=== PATIENT | male | born 1940 | race Caucasian/White ===

== ENCOUNTER → 2016-10-21 | Outpatient (CLI) | payer MEDICARE, OTHER | LOC: RAD 08:48 | PROVIDERS: ATTEND Otolaryngology | DX: R13.10 Dysphagia, unspecified (principal); K21.9 Gastro-esophageal reflux disease without esophagitis; K44.9 Diaphragmatic hernia without obstruction or gangrene | CPT/HCPCS: 74220 ==

== ENCOUNTER 2018-03-02 10:18 | Day surgery (SDC) | payer MEDICARE, OTHER ==
[~2018-03-02 10:18] MED LIST: PROPOFOL INJ 200 MG/20 ML VIAL IV ONE
[2018-03-02 12:45] VITALS: BP 156/75
--- NOTE | 2018-03-02 13:14 | Operative Report ---
Operative Report DATE OF SURGERY: 03/02/18 Operative Report: The risks, benefits and alternatives of the procedure including risks of bleeding, perforation requiring surgery are explained to the patient in detail and informed consent was obtained. Patient is taken back to the endoscopy suite and placed in the left, lateral decubital position. Timeout was called. Propofol medication is administered. A rectal examination is done which did not reveal any masses, tears or fissures. An Olympus videoscope was inserted into the patient's rectum. The scope was then carefully advanced all the way to the cecum. The cecum was identified by the usual anatomical landmarks including the ileocecal valve as well as the appendiceal office. Photodocumentation is obtained. The scope was then sequentially pulled back via the various segments of the colon including the ascending colon, hepatic flexure, transverse colon, splenic flexure, descending colon and finally into the rectosigmoid portions of the colon. Retroflexion maneuvers performed. PREOPERATIVE DIAGNOSIS: Personal history of polyp. POSTOPERATIVE DIAGNOSIS: Diverticulosis. Internal hemorrhoids. Mild right- sided colon inflammation status post biopsy OPERATION: Colonoscopy with biopsy SURGEON: MILTON RICHMOND ANESTHESIA: LMAC TISSUE REMOVED OR ALTERED: As noted above. COMPLICATIONS: None. ESTIMATED BLOOD LOSS: None. INTRAOPERATIVE FINDINGS: As noted above. PROCEDURE: Patient tolerated procedure well. No immediate postprocedure complications are noted. Patient discharged in good condition. Discharge date 03/02/2018. Discharge diet: Regular. Discharge activity: Regular. 2-3 week follow-up to discuss findings. Patient is instructed to call the office or proceed to the emergency room should there be any further problems or questions. We will wait on pathology. Surveillance colonoscopy in 5 years.
== END 2018-03-02 12:40 | disposition home or self-care (01) ==
LOC: END 10:18
PROVIDERS: ATTEND Internal Medicine Gastroenterology
DX: Z12.11 Encounter for screening for malignant neoplasm of colon (principal); K57.30 Diverticulosis of large intestine without perforation or abscess without bleeding; K64.8 Other hemorrhoids; K52.9 Noninfective gastroenteritis and colitis, unspecified; Z86.010 Personal history of colon polyps; M19.90 Unspecified osteoarthritis, unspecified site; E11.9 Type 2 diabetes mellitus without complications; K21.9 Gastro-esophageal reflux disease without esophagitis; K44.9 Diaphragmatic hernia without obstruction or gangrene; I11.0 Hypertensive heart disease with heart failure; I50.9 Heart failure, unspecified; J44.9 Chronic obstructive pulmonary disease, unspecified; E78.2 Mixed hyperlipidemia; I25.10 Atherosclerotic heart disease of native coronary artery without angina pectoris; Z87.891 Personal history of nicotine dependence; Z79.51 Long term (current) use of inhaled steroids; Z79.02 Long term (current) use of antithrombotics/antiplatelets; Z79.84 Long term (current) use of oral hypoglycemic drugs
CPT/HCPCS: 45380; 82962; 88305 ×2; J2704; 811

== ENCOUNTER 2018-10-26 19:08 | Inpatient (IN) | payer MEDICARE, OTHER ==
[2018-10-26] MEDS ORDERED: MORPHINE SULFATE 10 MG/ML INJ IV ONE ×2 (20:03→20:41)
[2018-10-26] MEDS ORDERED: ONDANSETRON HCL INJ/PF 4 MG/2 ML SDV IV ONE (20:03)
[2018-10-26 20:13] LABS: INTERNATIONAL RATION (INR) 1.09; PROTHROMBIN TIME 14.7 SEC (11.4-15.4)
[2018-10-26 20:14] LABS: ABSOLUTE EOSINOPHILS # (AUTO) 0.1 10^3/uL (0.0-0.6); ABSOLUTE LYMPHOCYTES (AUTO) 1.2 10^3/uL (0.5-4.7); ABSOLUTE MONOCYTES (AUTO) 1.2 10^3/uL (0.1-1.4); ABSOLUTE NEUT (AUTO) 11.7 10^3/uL (1.7-8.2); BASOPHILS % (AUTO) 0.2 % (0-2); HEMATOCRIT 47.6 % (37.9-51.0); HEMOGLOBIN 15.9 g/dL (13.5-17.0); LYMPHOCYTES % (AUTO) 8.4 % (13-45); MEAN CORPUSCULAR HEMOGLOBIN 30.1 pg (27.0-33.4); MEAN CORPUSCULAR HGB CONC 33.4 g/dL (32.0-36.0); MEAN CORPUSCULAR VOLUME 90 fl (80-97); MONOCYTES % (AUTO) 8.4 % (3-13); PLATELET COUNT 332 10^3/uL (150-450); RED BLOOD COUNT 5.29 10^6/uL (4.35-5.55); TOTAL CELLS COUNTED % (AUTO) 100 %; WHITE BLOOD COUNT 14.2 10^3/uL (4.0-10.5)
[2018-10-26] MEDS ORDERED: METOCLOPRAMIDE HCL INJ/PF 10 MG/2 ML SDV IV ONE (20:15)
[2018-10-26] MEDS ORDERED: NORMAL SALINE 1000 ML 1,000 ML IV ONE (20:16)
--- NOTE | 2018-10-26 20:19 | ER Document Report ---
ED General - General Chief Complaint: Abdominal Pain Stated Complaint: ABDOMINAL PAIN Time Seen by Provider: 10/26/18 19:53 Mode of Arrival: Stretcher Information source: Patient Notes: This is a 77-year-old man with a history of COPD (2L NC),VENICE (CPAP-does not tolerate the mask), coronary artery disease (1 stent), diverticulitis (partial colectomy) who presents to the emergency room with abdominal pain on and off for the past week. Patient states it acutely got worse this afternoon. He denies any vomiting. He denies any blood in the stool. Since daughter also states that he is been dyspneic as he walks around. Past medical history: COPD/obstructive sleep apnea, coronary artery disease, diverticulitis, morbid obesity. Past surgical history: 1 stent, partial colectomy secondary to diverticulitis. Primary CARE physician: Timo Tanner Organisational Psychologist: Rachel Barker Radiologist: Dr. Calderon ([place]). TRAVEL OUTSIDE OF THE [place] IN LAST 30 DAYS: No - HPI Onset: Last week Onset/Duration: Gradual Quality of pain: Dull Severity: Moderate Pain Level: 2 Associated symptoms: Nausea, Shortness of breath, Other - Abdominal pain. denies: Chest pain - No fever, Fever Exacerbated by: Denies Relieved by: Denies Similar symptoms previously: Yes Recently seen / treated by doctor: Yes - Related Data Allergies/Adverse Reactions: No Known Allergies Allergy (Verified 03/02/18 10:37) Past Medical History - General Information source: Patient - Social History Smoking Status: Former Smoker Cigarette use (# per day): No Chew tobacco use (# tins/day): No Frequency of alcohol use: None Drug Abuse: None Lives with: Family Family History: Reviewed & Not Pertinent Patient has suicidal ideation: No Patient has homicidal ideation: No - Past Medical History Cardiac Medical History: Reports: Hx Congestive Heart Failure, Hx Coronary Artery Disease, Hx Heart Attack - 12YRSAGO STENT, Hx Hypercholesterolemia, Hx Hy pertension Pulmonary Medical History: Denies: Hx Asthma, Hx Bronchitis, Hx COPD, Hx Pneumonia Neurological Medical History: Denies: Hx Cerebrovascular Accident, Hx Seizures Endocrine Medical History: Reports: Hx Diabetes Mellitus Type 2 GI Medical History: Reports: Hx Gastroesophageal Reflux Disease Musculoskeletal Medical History: Denies Hx Arthritis Past Surgical History: Reports: Hx Abdominal Surgery - diverticulitis resection, Hx Cardiac Catheterization - stent x1, Hx Coronary Stent, Hx Orthopedic Surgery - lumbar discectomy - Immunizations Hx Diphtheria, Pertussis, Tetanus Vaccination: No Review of Systems - Review of Systems Constitutional: denies: Chills, Fever EENT: No symptoms reported Cardiovascular: denies: Chest pain, Palpitations, Heart racing Respiratory: Short of breath. denies: Cough, Sputum Gastrointestinal: Abdominal pain, Nausea, Vomiting. denies: Constipation Genitourinary: No symptoms reported Male Genitourinary: No symptoms reported Musculoskeletal: No symptoms reported Skin: No symptoms reported Hematologic/Lymphatic: No symptoms reported Neurological/Psychological: No symptoms reported Physical Exam - Vital signs Vitals: Temp Pulse Resp BP Pulse Ox 98.9 F 94 24 H 158/96 H 90 L 10/26/18 19:17 10/26/18 19:17 10/26/18 19:17 10/26/18 19:17 10/26/18 19:17 Notes: Physical exam: GENERAL: 77-year-old man, alert and oriented x3, appears uncomfortable. HEAD: Atraumatic, normocephalic. EYES: Pupils equal round and reactive to light, extraocular movements intact, sclera anicteric, conjunctiva are normal. ENT: TMs normal, nares patent, oropharynx clear without exudates. dry mucous membranes. NECK: Normal range of motion, supple without obvious mass or JVD. LUNGS: Breath sounds clear to auscultation bilaterally and equal. No wheezes rales or rhonchi. HEART: Regular rate and rhythm without murmurs, rubs or gallops. ABDOMEN: Soft tuber and abdomen, he does have an old laparotomy scar (partial colectomy remotely), there is a large ventral hernia that does not appear incarcerated, normoactive bowel sounds. Mild tenderness to palpation in the periumbilical area. No guarding, no rebound. No masses appreciated. Rectal: No perianal masses, stool brown, heme-negative. EXTREMITIES: Normal range of motion, no pitting or edema. No clubbing or cyanosis. NEUROLOGICAL: Cranial nerves II through XII grossly intact. Normal speech, moving all extremities. PSYCH: Normal mood, normal affect. SKIN: Warm, Dry, normal turgor, no rashes or lesions noted. Course - Re-evaluation Re-evalutation: 10/26/18 22:56 Note: The patient's problem list is as follows: 1. Atrial fibrillation with a rapid ventricular rate: This is new onset. Patient was also noted to have market elevated blood pressure (170/120). Patient was treated with IV Cardizem with improvement of both. Patient's blood pressure is currently 129/64. Patient's pulse is 92. He is got a total of 2 boluses of IV Cardizem and will be switched over to oral Cardizem. He will be giving Lovenox for anticoagulation. 2. Abdominal pain: Patient's abdominal pain has resolved completely while he was in the emergency room. He was given 4 mg of morphine twice so we will have to continue to watch his abdomen. The CT of the abdomen showed no acute intra- abdominal process. The rectal exam showed no blood in the stool. His lactic acid was normal. Repeat abdominal exam at this time is soft and nontender. 3. COPD/obstructive sleep apnea: Its noted that the patient's oxygen saturations have been dropping to 90 and below. He was recently started on oxygen because of O2 sats that the daughter describes dropped into the 70s with activity. He is followed by a sales negotiator Rachel Barker. He reports that he does not like to wear the CPAP mask at home. I have talked to him about the risks of getting the pain medicine (which she has already gotten) and pulmonary status. He agrees to trying the BiPAP mask and we have ordered BiPAP. And we will continue to follow his pulmonary status. On reassessment, he is not in any significant respiratory distress (he is comfortable, he is just CT satting when he sleeps). 10/26/18 23:12 - Vital Signs Vital signs: Temp Pulse Resp BP Pulse Ox 98.9 F 94 15 129/64 H 91 L 10/26/18 19:17 10/26/18 19:17 10/26/18 23:01 10/26/18 23:01 10/26/18 23:01 - Laboratory Result Diagrams: 10/26/18 19:52 10/26/18 19:52 Laboratory results interpreted by me: 10/26/18 10/26/18 10/26/18 19:52 19:52 19:52 WBC 14.2 H Seg Neutrophils % 82.0 H Lymphocytes % 8.4 L Absolute Neutrophils 11.7 H Sodium 136.9 L Glucose 301 H Calcium 10.6 H AST 12 L Amylase < 30 L - Diagnostic Test Radiology reviewed: Image reviewed, Reports reviewed - CT of the chest shows no acute infiltrates - EKG Interpretation by Me Rhythm: A.Fib - EKG shows atrial fibrillation with a rapid ventricular rate (133) no acute ST-T wave changes Critical Care Note - Critical Care Note Total time excluding time spent on procedures (mins): 60 Discharge - Discharge Clinical Impression: Atrial fibrillation with a rapid ventric, Abdominal pain resolved, COPD exacerbation Condition: Stable Disposition: ADMITTED INPATIENT Admitting Provider: Hospitalist - Dr Ziegler Unit Admitted: Telemetry
[2018-10-26 20:21] LABS: ALANINE AMINOTRANSFERASE 36 U/L (21-72); ALBUMIN 3.8 g/dL (3.5-5.0); ALKALINE PHOSPHATASE 75 U/L (38-126); ANION GAP 11 (5-19); ASPARTATE AMINO TRANSFERASE 12 U/L (17-59); BILIRUBIN,DIRECT 0.4 mg/dL (0.0-0.4); BILIRUBIN,TOTAL 0.8 mg/dL (0.2-1.3); BLOOD UREA NITROGEN 17 mg/dL (7-20); CALCIUM 10.6 mg/dL (8.4-10.2); CARBON DIOXIDE 27 mmol/L (22-30); CHLORIDE 99 mmol/L (98-107); GLUCOSE 301 mg/dL (75-110); POTASSIUM 4.5 mmol/L (3.6-5.0); SODIUM 136.9 mmol/L (137-145); TOTAL PROTEIN 6.7 g/dL (6.3-8.2)
[2018-10-26 20:45] LABS: VENOUS BLOOD BASE EXCESS 2.4 mmol/L; VENOUS BLOOD HCO3 29.3 mmol/L (20-32); VENOUS BLOOD PH 7.35 (7.30-7.42)
--- NOTE | 2018-10-26 21:07 | RADIOLOGY REPORT (SQ) ---
EXAM DESCRIPTION: XR CHEST 1 VIEW COMPLETED DATE/TME: 10/26/2018 20:17 CLINICAL HISTORY: 77 years, Male, chest pain COMPARISON: 12/23/2013 chest NUMBER OF VIEWS: 1 TECHNIQUE: Portable chest LIMITATIONS: None. FINDINGS: Cardiomegaly. Osteopenia. Minor scarring left lung base. Lungs are otherwise clear. No pneumothorax IMPRESSION: Cardiomegaly. No acute cardiopulmonary process copyright 2010 [employer]- All Rights Reserved
[2018-10-26] MEDS ORDERED: DILTIAZEM HCL INJ 25 MG/5 ML VIAL IV ONE ×2 (21:28→22:28)
--- NOTE | 2018-10-26 22:33 | RADIOLOGY REPORT (SQ) ---
EXAM DESCRIPTION: CT ABDOMEN PELVIS WITH IV CONTRAST COMPLETED DATE/TME: 10/26/2018 00:00 CLINICAL HISTORY: 77 years, Male, abd pain This exam was performed according to our departmental dose-optimization program which includes automated exposure control, adjustment of the mA and/or kVp according to patient size and/or use of iterative reconstruction technique where applicable. FINDINGS: Liver, pancreas, gallbladder, adrenal glands and kidneys are within normal limits. No hydronephrosis or biliary dilatation. Spleen demonstrates small wedge-shaped hypodense region consistent with infarct. It is not enlarged. Spleen demonstrates calcified granulomas consistent with sequela of prior granulomatous disease. No dilated loops of bowel to suggest obstruction. Mild amount of stool in the colon. Bladder is unremarkable. No abdominal or pelvic lymphadenopathy. Abdominal aorta is moderately calcified without aneurysm. Mild diffuse colon diverticulosis without CT evidence for acute diverticulitis. IMPRESSION: No acute disease.
[2018-10-26] MEDS ORDERED: DILTIAZEM HCL 180 MG CAPSULE.CR PO ONE (22:58)
[2018-10-26] MEDS ORDERED: ENOXAPARIN SODIUM INJ 100 MG/1 ML DISP.SYRIN SUBCUT ONE (23:08)
[2018-10-27] MEDS ORDERED: CARVEDILOL 6.25 MG TABLET PO ONE (01:00)
[2018-10-27] MEDS ORDERED: ATORVASTATIN CALCIUM 80 MG TABLET PO ONE (01:00)
[2018-10-27] MEDS: IPRATROPIUM BROMIDE 0.02% NEB 0.5 MG/2.5 ML AMPUL NEB SCH ×4 (01:49→20:10)
[2018-10-27] MEDS: LEVALBUTEROL HCL NEB 1.25 MG/3 ML AMPUL NEB SCH ×4 (01:49→20:10)
[2018-10-27 02:18] LABS: CREATINE KINASE MB 0.64 ng/mL (<4.55)
[2018-10-27 02:22] LABS: TROPONIN I < 0.012 ng/mL
--- NOTE | 2018-10-27 05:39 | PDOC H&P ---
History of Present Illness Admission Date/PCP: 10/26/18 23:14 CHELA IYER MD Patient complains of: Chest pain History of Present Illness: BABAR WILLARD is a 77 year old male with a past medical history of oxygen dependent COPD, obstructive sleep apnea with noncompliance, coronary artery disease with stent remotely, diverticulitis with partial colectomy and diabetes. He presents with approximately a week of abdominal pain prompting him to seek evaluation in the emergency room where he was found to have A. fib with RVR. He started on IV Cardizem and full dose Lovenox then referred to the hospitalist for admission. Patient denies previous episode denies current abdominal pain. CT of the abdomen pelvis was unremarkable. Patient denies recent change in medications and otherwise is felt well. Past Medical History Cardiac Medical History: Reports: Congestive Heart Failure, Coronary Artery Disease, Myocardial Infarction - 12YRSAGO STENT, Hyperlipidema, Hypertension Pulmonary Medical History: Denies: Asthma, Bronchitis, Chronic Obstructive Pulmonary Disease (COPD), Pneumonia Neurological Medical History: Denies: Seizures Endocrine Medical History: Reports: Diabetes Mellitus Type 2 GI Medical History: Reports: Gastroesophageal Reflux Disease Musculoskeltal Medical History: Denies: Arthritis Psychiatric Medical History: Denies: Alcohol Dependency, Depression, Tobacco Dependency Hematology: Denies: Anemia Past Surgical History Past Surgical History: Reports: Cardiac Catheterization - stent x1, Coronary Stent, Orthopedic Surgery - lumbar discectomy Social History Information Source: Patient Lives with: Family Smoking Status: Former Smoker Frequency of Alcohol Use: None Hx Recreational Drug Use: No Drugs: None Hx Prescription Drug Abuse: No - Advance Directive Resuscitation Status: Full Code Family History Family History: COPD Parental Family History Reviewed: Yes Children Family History Reviewed: Yes Sibling(s) Family History Reviewed.: Yes Medication/Allergy Home Medications: Carvedilol [Coreg 6.25 Mg Tablet] 6.25 mg PO BID 12/27/11 Clopidogrel Bisulfate [Plavix 75 Mg Tablet] 75 mg PO DAILY 12/27/11 Docusate Sodium [Colace 100 mg Capsule] 200 mg PO QHS 12/27/11 Meloxicam [Mobic 7.5 Mg Tablet] 7.5 mg PO QHS 12/27/11 Nitroglycerin [Nitrostat 0.4 mg (1/150 Gr) Tabs 25/Bottle] 0.4 mg SL PRN PRN 12/27/11 Simvastatin [Zocor 40 mg Tablet] 40 mg PO QHS 12/27/11 Tramadol HCl/Acetaminophen [Ultracet Tablet] 1 each PO QHS 12/27/11 Metformin HCl [Glucophage] 500 mg PO BID 12/23/13 Potassium Chloride 10 meq PO DAILY 12/23/13 Oxycodone HCl/Acetaminophen [Percocet 5-325 mg Tablet] 1 - 2 tab PO Q4H PRN #15 tablet 01/30/14 Allergies/Adverse Reactions: No Known Allergies Allergy (Verified 03/02/18 10:37) Review of Systems Constitutional: ABSENT: chills, fever(s), headache(s), weight gain, weight loss Eyes: ABSENT: visual disturbances Ears: ABSENT: hearing changes Cardiovascular: ABSENT: chest pain, dyspnea on exertion, edema, orthropnea, palpitations Respiratory: ABSENT: cough, hemoptysis Gastrointestinal: ABSENT: abdominal pain, constipation, diarrhea, hematemesis, hematochezia, nausea, vomiting Genitourinary: ABSENT: dysuria, hematuria Musculoskeletal: ABSENT: joint swelling Integumentary: ABSENT: rash, wounds Neurological: ABSENT: abnormal gait, abnormal speech, confusion, dizziness, focal weakness, syncope Psychiatric: ABSENT: anxiety, depression, homidical ideation, suicidal ideation Endocrine: ABSENT: cold intolerance, heat intolerance, polydipsia, polyuria Hematologic/Lymphatic: ABSENT: easy bleeding, easy bruising Physical Exam Vital Signs: Temp Pulse Resp BP Pulse Ox 97.7 F 87 21 H 120/72 97 10/27/18 04:06 10/27/18 04:06 10/27/18 04:20 10/27/18 04:06 10/27/18 04:06 Intake & Output 10/25/18 10/26/18 10/27/18 11:59 11:59 11:59 Intake Total 1000 Balance 1000 Weight 105.8 kg General appearance: PRESENT: cooperative, disheveled, mild distress, morbidly obese, obese Head exam: PRESENT: atraumatic, normocephalic Eye exam: PRESENT: conjunctiva pink, EOMI, PERRLA. ABSENT: scleral icterus Ear exam: PRESENT: normal external ear exam Mouth exam: PRESENT: moist, tongue midline Neck exam: ABSENT: carotid bruit, JVD, lymphadenopathy, thyromegaly Respiratory exam: PRESENT: crackles, decreased breath sounds, tachypnea. ABSENT: accessory muscle use, chest wall tenderness, rales, rhonchi, wheezes Cardiovascular exam: PRESENT: irregular rhythm, +S1, +S2, tachycardia. ABSENT: gallop Pulses: PRESENT: normal dorsalis pedis pul Vascular exam: PRESENT: normal capillary refill GI/Abdominal exam: PRESENT: normal bowel sounds, soft. ABSENT: distended, guarding, mass, organolmegaly, rebound, tenderness Rectal exam: PRESENT: deferred Extremities exam: PRESENT: +1 edema Neurological exam: PRESENT: alert, awake, oriented to person, oriented to place, oriented to time, oriented to situation, CN II-XII grossly intact. ABSENT: motor sensory deficit Psychiatric exam: PRESENT: appropriate affect, normal mood. ABSENT: homicidal ideation, suicidal ideation Skin exam: PRESENT: dry, intact, warm. ABSENT: cyanosis, rash Results Laboratory Results: 10/26/18 19:52 10/26/18 19:52 10/26/18 10/26/18 10/26/18 19:52 19:52 19:52 WBC 14.2 H RBC 5.29 Hgb 15.9 Hct 47.6 MCV 90 MCH 30.1 MCHC 33.4 RDW 14.0 Plt Count 332 Seg Neutrophils % 82.0 H Lymphocytes % 8.4 L Monocytes % 8.4 Eosinophils % 1.0 Basophils % 0.2 Absolute Neutrophils 11.7 H Absolute Lymphocytes 1.2 Absolute Monocytes 1.2 Absolute Eosinophils 0.1 Absolute Basophils 0.0 VBG pH VBG pCO2 VBG HCO3 VBG Base Excess Sodium 136.9 L Potassium 4.5 Chloride 99 Carbon Dioxide 27 Anion Gap 11 BUN 17 Creatinine 0.87 Est GFR ( Amer) > 60 Est GFR (Non-Af Amer) > 60 Glucose 301 H Lactic Acid Calcium 10.6 H Total Bilirubin 0.8 AST 12 L ALT 36 Alkaline Phosphatase 75 Total Protein 6.7 Albumin 3.8 Amylase < 30 L 10/26/18 10/26/18 20:36 20:36 WBC RBC Hgb Hct MCV MCH MCHC RDW Plt Count Seg Neutrophils % Lymphocytes % Monocytes % Eosinophils % Basophils % Absolute Neutrophils Absolute Lymphocytes Absolute Monocytes Absolute Eosinophils Absolute Basophils VBG pH 7.35 VBG pCO2 54.0 VBG HCO3 29.3 VBG Base Excess 2.4 Sodium Potassium Chloride Carbon Dioxide Anion Gap BUN Creatinine Est GFR ( Amer) Est GFR (Non-Af Amer) Glucose Lactic Acid 0.9 Calcium Total Bilirubin AST ALT Alkaline Phosphatase Total Protein Albumin Amylase 10/26/18 10/27/18 19:52 01:49 CK-MB (CK-2) 0.64 Troponin I < 0.012 < 0.012 Impressions: Abdomen/Pelvis CT 10/26/18 00:00 IMPRESSION: No acute disease. Chest X-Ray 10/26/18 20:17 IMPRESSION: Cardiomegaly. No acute cardiopulmonary process copyright 2011 [employer]- All Rights Reserved Assessment & Plan - Diagnosis (1) Atrial fibrillation Is this a current diagnosis for this admission?: Yes Plan: New onset unclear cause, IV Cardizem, 1 mg/kg Lovenox every 12, follow-up TSH, cardiac enzymes, continue BiPAP (2) Chest pain Is this a current diagnosis for this admission?: Yes Plan: Likely secondary to uncontrolled A. fib with RVR, trend cardiac enzymes, consider cardiac stress (3) Abdominal pain Is this a current diagnosis for this admission?: Yes Plan: Likely an anginal equivalent given onset with A. fib with RVR. Follow-up cardiac enzymes consider cardiac stress test. (4) Obstructive sleep apnea Is this a current diagnosis for this admission?: Yes Plan: Education and BiPAP ordered (5) COPD (chronic obstructive pulmonary disease) Is this a current diagnosis for this admission?: Yes Plan: Xopenex and Atrovent, Flonase and supplemental oxygen. - Time Time Spent: 50 to 70 Minutes - Inpatient Certification Medical Necessity: Need Close Monitoring Due to Risk of Patient Decompensation
[2018-10-27] MEDS ORDERED: CHLORPHENIRAMINE MALEATE 4 MG TABLET PO ONE (05:40)
[2018-10-27] MEDS ORDERED: CHLORPHENIRAMINE MALEATE 4 MG TABLET ONE (06:28)
[2018-10-27] MEDS: LANSOPRAZOLE 30 MG TAB.RAP.DR PO SCH (06:39)
[2018-10-27 08:33] LABS: MEAN CORPUSCULAR VOLUME 91 fl (80-97)
[2018-10-27 08:45] LABS: ANION GAP 7 (5-19); BLOOD UREA NITROGEN 17 mg/dL (7-20); CALCIUM 9.9 mg/dL (8.4-10.2); CARBON DIOXIDE 32 mmol/L (22-30); CHLORIDE 97 mmol/L (98-107); CHOLESTEROL 85.59 mg/dL (0-200); GLUCOSE 297 mg/dL (75-110); POTASSIUM 5.3 mmol/L (3.6-5.0); TRIGLYCERIDES 90 mg/dL (<150)
[2018-10-27 08:46] LABS: ABSOLUTE LYMPHOCYTES (AUTO) 1.1 10^3/uL (0.5-4.7); ABSOLUTE MONOCYTES (AUTO) 2.1 10^3/uL (0.1-1.4); ABSOLUTE NEUT (AUTO) 12.7 10^3/uL (1.7-8.2); BASOPHILS % (AUTO) 0.1 % (0-2); HEMATOCRIT 42.3 % (37.9-51.0); LYMPHOCYTES % (AUTO) 6.8 % (13-45); MEAN CORPUSCULAR HEMOGLOBIN 30.2 pg (27.0-33.4); MEAN CORPUSCULAR HGB CONC 33.2 g/dL (32.0-36.0); MONOCYTES % (AUTO) 13.4 % (3-13); PLATELET COUNT 305 10^3/uL (150-450); RED BLOOD COUNT 4.65 10^6/uL (4.35-5.55); RED CELL DISTRIBUTION WIDTH 14.2 % (11.5-14.0); SEGMENTED NEUTROPHILS % (AUTO) 79.7 % (42-78); TOTAL CELLS COUNTED % (AUTO) 100 %; WHITE BLOOD COUNT 15.9 10^3/uL (4.0-10.5)
[2018-10-27 08:56] LABS: DIRECT LDL 50 mg/dL (<100)
[2018-10-27 08:57] LABS: CREATINE KINASE MB 0.74 ng/mL (<4.55)
[2018-10-27 09:04] LABS: CREATINE KINASE < 20 U/L (55-170)
[2018-10-27 09:05] LABS: TROPONIN I < 0.012 ng/mL
[2018-10-27] MEDS ORDERED: OXYCODONE-ACETAMINOPHEN 5-325 MG TABLET PO PRN (09:21)
[2018-10-27] MEDS ORDERED: NITROGLYCERIN 0.4 MG/TAB 25 TAB/BOTTLE SL PRN (09:21)
[2018-10-27] MEDS ORDERED: DEXTROSE 50%-WATER 25 GM/50 ML DISP.SYRIN IV PRN ×2 (09:23)
[2018-10-27] MEDS ORDERED: GLUCAGON,HUMAN RECOMB 1 MG INJ IM PRN (09:23)
[2018-10-27] MEDS ORDERED: DEXTROSE 40% GEL 15 GM TUBE PO PRN ×2 (09:23)
--- NOTE | 2018-10-27 09:49 | PDOC PROGRESS REPORT ---
Subjective Progress Note for:: 10/27/18 Subjective:: 77 year old male with a past medical history of oxygen dependent COPD, obstructive sleep apnea with noncompliance, coronary artery disease with stent remotely, diverticulitis with partial colectomy and diabetes. He presents with approximately a week of abdominal pain prompting him to seek evaluation in the emergency room where he was found to have A. fib with RVR. He started on IV Cardizem and full dose Lovenox then referred to the hospitalist for admission. Patient denies previous episode denies current abdominal pain. CT of the abdomen pelvis was unremarkable. Patient denies recent change in medications and otherwise is felt well. 10/[id number]-ghry-old male with history of COPD obstructive sleep apnea coronary artery disease with history of stent placement to diabetic admitted for abdominal pain and new onset A. fib with RVR. CT abdomen and pelvis was negative for acute pathology. Chest x-ray was negative for fluid overload. She was initially on Cardizem drip and presently on a Coreg 6.25 mg p.o. twice daily. He is in sinus rhythm. No acute events in the last 24 hours. Patient is afebrile. Reason For Visit: AFIB CHEST PAIN Physical Exam Vital Signs: Temp Pulse Resp BP Pulse Ox 99.2 F 72 16 98/53 L 93 10/27/18 07:49 10/27/18 07:49 10/27/18 07:49 10/27/18 07:49 10/27/18 07:49 Intake & Output 10/26/18 10/27/18 10/28/18 06:59 06:59 06:59 Intake Total 1000 Balance 1000 Weight 105.8 kg General appearance: PRESENT: no acute distress, obese Head exam: PRESENT: atraumatic Eye exam: PRESENT: PERRLA Mouth exam: PRESENT: moist Neck exam: ABSENT: carotid bruit, JVD, lymphadenopathy, thyromegaly Respiratory exam: PRESENT: clear to auscultation jorje. ABSENT: rales, rhonchi, wheezes Cardiovascular exam: PRESENT: irregular rhythm, systolic murmur GI/Abdominal exam: PRESENT: other - Obese abdomen, no organomegaly, bowel sounds are present, abdomen was soft and nontender on palpation. Extremities exam: PRESENT: full ROM. ABSENT: calf tenderness, clubbing, pedal edema Neurological exam: PRESENT: alert, awake, oriented to person, oriented to place, oriented to time, oriented to situation, CN II-XII grossly intact. ABSENT: motor sensory deficit Psychiatric exam: PRESENT: appropriate affect, normal mood. ABSENT: homicidal ideation, suicidal ideation Results Laboratory Results: 10/27/18 08:21 10/27/18 08:21 10/26/18 10/26/18 10/26/18 19:52 19:52 19:52 WBC 14.2 H RBC 5.29 Hgb 15.9 Hct 47.6 MCV 90 MCH 30.1 MCHC 33.4 RDW 14.0 Plt Count 332 Seg Neutrophils % 82.0 H Lymphocytes % 8.4 L Monocytes % 8.4 Eosinophils % 1.0 Basophils % 0.2 Absolute Neutrophils 11.7 H Absolute Lymphocytes 1.2 Absolute Monocytes 1.2 Absolute Eosinophils 0.1 Absolute Basophils 0.0 VBG pH VBG pCO2 VBG HCO3 VBG Base Excess Sodium 136.9 L Potassium 4.5 Chloride 99 Carbon Dioxide 27 Anion Gap 11 BUN 17 Creatinine 0.87 Est GFR ( Amer) > 60 Est GFR (Non-Af Amer) > 60 Glucose 301 H Lactic Acid Calcium 10.6 H Total Bilirubin 0.8 AST 12 L ALT 36 Alkaline Phosphatase 75 Total Protein 6.7 Albumin 3.8 Triglycerides Cholesterol LDL Cholesterol Direct VLDL Cholesterol HDL Cholesterol Amylase < 30 L 10/26/18 10/26/18 10/27/18 20:36 20:36 08:21 WBC 15.9 H RBC 4.65 Hgb 14.0 Hct 42.3 MCV 91 MCH 30.2 MCHC 33.2 RDW 14.2 H Plt Count 305 Seg Neutrophils % 79.7 H Lymphocytes % 6.8 L Monocytes % 13.4 H Eosinophils % 0.0 Basophils % 0.1 Absolute Neutrophils 12.7 H Absolute Lymphocytes 1.1 Absolute Monocytes 2.1 H Absolute Eosinophils 0.0 Absolute Basophils 0.0 VBG pH 7.35 VBG pCO2 54.0 VBG HCO3 29.3 VBG Base Excess 2.4 Sodium Potassium Chloride Carbon Dioxide Anion Gap BUN Creatinine Est GFR ( Amer) Est GFR (Non-Af Amer) Glucose Lactic Acid 0.9 Calcium Total Bilirubin AST ALT Alkaline Phosphatase Total Protein Albumin Triglycerides Cholesterol LDL Cholesterol Direct VLDL Cholesterol HDL Cholesterol Amylase 10/27/18 08:21 WBC RBC Hgb Hct MCV MCH MCHC RDW Plt Count Seg Neutrophils % Lymphocytes % Monocytes % Eosinophils % Basophils % Absolute Neutrophils Absolute Lymphocytes Absolute Monocytes Absolute Eosinophils Absolute Basophils VBG pH VBG pCO2 VBG HCO3 VBG Base Excess Sodium 136.0 L Potassium 5.3 H Chloride 97 L Carbon Dioxide 32 H Anion Gap 7 BUN 17 Creatinine 0.93 Est GFR ( Amer) > 60 Est GFR (Non-Af Amer) > 60 Glucose 297 H Lactic Acid Calcium 9.9 Total Bilirubin AST ALT Alkaline Phosphatase Total Protein Albumin Triglycerides 90 Cholesterol 85.59 LDL Cholesterol Direct 50 VLDL Cholesterol 18.0 HDL Cholesterol 34 L Amylase 10/26/18 10/27/18 10/27/18 19:52 01:49 08:21 Creatine Kinase CK-MB (CK-2) 0.64 0.74 Troponin I < 0.012 < 0.012 < 0.012 10/27/18 08:21 Creatine Kinase < 20 L CK-MB (CK-2) Troponin I Impressions: Abdomen/Pelvis CT 10/26/18 00:00 IMPRESSION: No acute disease. Chest X-Ray 10/26/18 20:17 IMPRESSION: Cardiomegaly. No acute cardiopulmonary process copyright 2010 [employer]- All Rights Reserved Assessment & Plan - Diagnosis (1) Abdominal pain Is this a current diagnosis for this admission?: Yes Plan: Likely an anginal equivalent given onset with A. fib with RVR. Follow-up cardiac enzymes consider cardiac stress test. 10/27/2018-patient came in with abdominal pain CT abdomen pelvis was negative abdominal pain was resolved is most likely secondary to atrial fibrillation RVR causing the anginal symptoms. (2) Atrial fibrillation Is this a current diagnosis for this admission?: Yes Plan: 10/27/2018 patient was admitted with new onset atrial fibrillation with RVR. Jean Claude roberts on Cardizem drip, presently is on Coreg 6.5 mg p.o. twice daily. He is in sinus rhythm. Cardiology consult was requested echocardiogram requested. Patient is asymptomatic. Patient states he is going to follow-up with Dr. Calderon as an outpatient. He reluctantly agreed to see the plumbing engineer today. Patient is presently on Lovenox therapeutic dose. FAll precautions are requested.. (3) Chest pain Is this a current diagnosis for this admission?: Yes Plan: 10/27/2018 patient came in with chest pain probably secondary to. Cardiac enzymes are negative. no Complaints of chest pain this morning. (4) Obstructive sleep apnea Is this a current diagnosis for this admission?: Yes Plan: 10/27/2018 patient history of obstructive sleep apnea is noncompliant with his BiPAP machine at home. BiPAP was requested during this hospital stay. (5) COPD (chronic obstructive pulmonary disease) Is this a current diagnosis for this admission?: Yes Plan: 10/27/2018-patient is given the history of COPD not on home oxygen he is presently on Xopenex, Atrovent, Flonase and supplemental oxygen. Pulse ox is 93% on 2 L. Chest examination bilateral entry was decreased but no wheezing no crepitations. (6) Obesity (BMI 30-39.9) Is this a current diagnosis for this admission?: Yes Plan: 10/27/2018-patient's BMI is more than 35. Diet exercise weight loss and lifestyle modifications discussed. Dietary consult was requested. (7) Diabetes 1.5, managed as type 2 Is this a current diagnosis for this admission?: Yes Plan: 10/27/2018 patient is giving history of type 2 diabetes mellitus. Hemoglobin A1c is requested. pt going to be on insulin sliding scale before meals at bedtime with Humalog coverage. Dietary consult was requested is on diabetic diet. (8) Coronary artery disease Is this a current diagnosis for this admission?: Yes Plan: 10/27/2018-patient is given the history of coronary artery disease status post stent placement complaint of chest pain at the time of admission cardiac enzymes are negative so far. His chest pain-free this morning. Chest pain probably secondary to A. fib with RVR which was resolved. - Time Time Spent with patient: 15-24 minutes Medications reviewed and adjusted accordingly: Yes Anticipated discharge: Home
[2018-10-27] MEDS ORDERED: SODIUM POLYSTYRENE SULFONATE 15 GM/60 ML PO ONE (10:30)
[2018-10-27] MEDS: ASPIRIN 81 MG TABLET, ENT COATED PO SCH (11:10)
[2018-10-27] MEDS: FLUTICASONE NASAL SPRAY 50 MCG/SPRY 120 SPRAY/16 GM NASL SCH ×2 (11:10→21:52)
[2018-10-27] MEDS: CLOPIDOGREL BISULFATE 75 MG TABLET PO SCH (11:10)
[2018-10-27] MEDS: DOCUSATE SODIUM 100 MG CAPSULE PO SCH ×3 (11:10→21:52)
[2018-10-27] MEDS: CARVEDILOL 6.25 MG TABLET PO SCH ×2 (11:11→18:04)
[2018-10-27] MEDS: ENOXAPARIN SODIUM INJ 120 MG/0.8 ML DISP.SYRIN SUBCUT SCH ×2 (11:16→21:52)
[2018-10-27] MEDS: INSULIN REG, HUMAN 100 UNIT/ML 3 ML VIAL (PYX) SUBCUT SCH ×3 (13:24→21:51)
[2018-10-27 16:44] LABS: CREATINE KINASE MB 0.38 ng/mL (<4.55)
[2018-10-27 16:48] LABS: TROPONIN I < 0.012 ng/mL
--- NOTE | 2018-10-27 20:28 | XCELERA REPORT ---
[address] [address] Transthoracic Echocardiogram Report Name: BABAR WILLARDSR Age: 77 yrs Gender: Male : 1940 Patient Status: Inpatient Patient Location: [address] [place], [place] [address] Study Date: 10/27/2018 03:39 PM Height: 69 in Weight: 232 lb BSA: 2.2 m2 Procedure: A two-dimensional transthoracic echocardiogram with color flow and Doppler was performed. The study was technically difficult with many images being suboptimal in quality. Poor endocardial defenition. Reason For Study: LV Function, size, wall thickness,Valve Function History: CHF. Ordering Physician: ELIAN STRICKLAND Performed By: Yuliya Marcano Interpretation Summary The left ventricle is normal in size. There is normal left ventricular wall thickness. LV EF is 60% The left ventricular ejection fraction is within normal limits. Probably no regional wall motion BNORMALITY. There is no thrombus. The right ventricle is mild to moderately dilated. There is mild right ventricular hypertrophy. The right ventricular systolic function is normal. The right atrium is normal. The left atrium is mildly dilated. The interatrial septum is intact with no evidence for an atrial septal defect. There is no evidence of mitral valve prolapse. There is no vegetation seen on the mitral valve. There is no mitral valve stenosis. There is no aortic valvular vegetation. There is no aortic valve stenosis There is no LVOT obstruction. There is aortic sclerosis without aortic stenosis. No aortic regurgitation is present. There is no tricuspid stenosis. There is a trace amount of tricuspid regurgitation nO SIGNIFICANT PULMONARY HYPERTENSION.rvsp IS 27 TO 32 MM OF hG , WITH ra MEAN OF 5 TO 20. There is no pulmonic valvular stenosis. There is no pulmonic valvular regurgitation. There is no pericardial effusion. MMode/2D Measurements & Calculations RVDd: 4.0 cm LVIDd: 5.4 cm FS: 23.9 % Ao root diam: 2.9 cm IVSd: 1.1 cm LVIDs: 4.1 cm EDV(Teich): 143.3 ml Ao root area: 6.7 cm2 LVPWd: 1.0 cm ESV(Teich): 75.6 ml EF(Teich): 47.2 % Doppler Measurements & Calculations MV E max lauren: MV dec slope: Ao V2 max: LV V1 max P.4 cm/sec 760.8 cm/sec2 141.2 cm/sec 5.9 mmHg MV A max lauren: MV dec time: 0.17 secAo max PG: LV V1 max: 31.9 cm/sec 8.0 mmHg 121.3 cm/sec MV E/A: 4.0 PA V2 max: TR max lauren: 90.4 cm/sec 233.2 cm/sec PA max P.3 mmHg TR max P.8 mmHg Left Ventricle The left ventricle is normal in size. There is normal left ventricular wall thickness. LV EF is 60%. The left ventricular ejection fraction is within normal limits. LV diastolic function could not be adequately assessed due to atrial fibrilation. Probably no regional wall motion BNORMALITY. There is no thrombus. Right Ventricle The right ventricle is mild to moderately dilated. There is mild right ventricular hypertrophy. The right ventricular systolic function is normal. Atria The right atrium is normal. The left atrium is mildly dilated. The interatrial septum is intact with no evidence for an atrial septal defect. Mitral Valve There is mild mitral annular calcification. There is no evidence of mitral valve prolapse. There is no vegetation seen on the mitral valve. There is no mitral valve stenosis. There is a trace amount of mitral regurgitation. Aortic Valve There is no aortic valvular vegetation. There is no aortic valve stenosis. There is no LVOT obstruction. There is aortic sclerosis without aortic stenosis. No aortic regurgitation is present. Tricuspid Valve There is no tricuspid stenosis. There is a trace amount of tricuspid regurgitation. nO SIGNIFICANT PULMONARY HYPERTENSION.rvsp IS 27 TO 32 MM OF hG , WITH ra MEAN OF 5 TO 20. Pulmonic Valve There is no pulmonic valvular stenosis. There is no pulmonic valvular regurgitation. Effusions There is no pericardial effusion. : ELIAN STRICKLAND > Venessa Farias
--- NOTE | 2018-10-27 21:31 | EKG REPORT ---
SEVERITY:- ABNORMAL ECG - ATRIAL FIBRILLATION, V-RATE 79-160 CONSIDER ANTEROSEPTAL INFARCT : Confirmed by: Jennifer Kevin 27-Oct-2018 21:31:02
--- NOTE | 2018-10-27 21:31 | EKG REPORT ---
SEVERITY:- ABNORMAL ECG - ATRIAL FIBRILLATION MULTIFORM VENTRICULAR PREMATURE COMPLEXES CONSIDER ANTEROSEPTAL INFARCT : Confirmed by: Jennifer Kevin 27-Oct-2018 21:31:16
--- NOTE | 2018-10-27 21:31 | EKG REPORT ---
SEVERITY:- ABNORMAL ECG - ATRIAL FIBRILLATION CONSIDER ANTEROSEPTAL INFARCT : Confirmed by: Jennifer Kevin 27-Oct-2018 21:30:50
[2018-10-27] MEDS: ATORVASTATIN CALCIUM 80 MG TABLET PO SCH (21:51)
[2018-10-27] MEDS ORDERED: SIMVASTATIN 40 MG TABLET PO SCH (22:00)
--- NOTE | 2018-10-27 22:10 | PDOC CONSULTATION ---
Consultation-Blank Consultation: CARDIOLOGY NOTE by Dr. Venessa Farias on 10/27/2018. I was consulted by the hospitalist to see this patient for atrial fibrillation. On questioning the patient the patient states that he has nothing wrong with his heart. For anything I ask him he says asked . "Dr. Calderon" he states that Dr. Calderon is his aviation technical systems specialist, and wants to see him. He does not want to be examined by me. He is awake alert oriented x3, and is oriented to person place and time. Hence will not render the consult, since the patient does not wish me to examine him. This has been discussed with Dr. Whitley, the hospitalist attending physician of the patient. Will sign off.
[2018-10-28] MEDS: LEVALBUTEROL HCL NEB 1.25 MG/3 ML AMPUL NEB SCH ×4 (01:45→20:58)
[2018-10-28] MEDS: IPRATROPIUM BROMIDE 0.02% NEB 0.5 MG/2.5 ML AMPUL NEB SCH ×4 (01:45→20:58)
[2018-10-28] MEDS: LANSOPRAZOLE 30 MG TAB.RAP.DR PO SCH (05:30)
[2018-10-28 05:54] LABS: HEMATOCRIT 39.2 % (37.9-51.0); HEMOGLOBIN 13.1 g/dL (13.5-17.0); MEAN CORPUSCULAR HGB CONC 33.4 g/dL (32.0-36.0); MEAN CORPUSCULAR VOLUME 90 fl (80-97); PLATELET COUNT 246 10^3/uL (150-450); RED BLOOD COUNT 4.37 10^6/uL (4.35-5.55); RED CELL DISTRIBUTION WIDTH 13.9 % (11.5-14.0); WHITE BLOOD COUNT 12.3 10^3/uL (4.0-10.5)
[2018-10-28 06:48] LABS: ALANINE AMINOTRANSFERASE 28 U/L (21-72); ALBUMIN 3.3 g/dL (3.5-5.0); ALKALINE PHOSPHATASE 66 U/L (38-126); ANION GAP 7 (5-19); ASPARTATE AMINO TRANSFERASE 21 U/L (17-59); BILIRUBIN,DIRECT 0.3 mg/dL (0.0-0.4); BILIRUBIN,TOTAL 1.2 mg/dL (0.2-1.3); BLOOD UREA NITROGEN 27 mg/dL (7-20); CALCIUM 9.8 mg/dL (8.4-10.2); CARBON DIOXIDE 31 mmol/L (22-30); CHLORIDE 98 mmol/L (98-107); GLUCOSE 210 mg/dL (75-110); SODIUM 135.7 mmol/L (137-145); TOTAL PROTEIN 6.2 g/dL (6.3-8.2)
[2018-10-28 06:55] LABS: POTASSIUM 4.1 mmol/L (3.6-5.0)
[2018-10-28] MEDS: CARVEDILOL 6.25 MG TABLET PO SCH ×2 (09:37→18:27)
[2018-10-28] MEDS: FLUTICASONE NASAL SPRAY 50 MCG/SPRY 120 SPRAY/16 GM NASL SCH ×2 (09:37→21:50)
[2018-10-28] MEDS: ASPIRIN 81 MG TABLET, ENT COATED PO SCH (09:37)
[2018-10-28] MEDS: DOCUSATE SODIUM 100 MG CAPSULE PO SCH ×3 (09:37→21:49)
[2018-10-28] MEDS: CLOPIDOGREL BISULFATE 75 MG TABLET PO SCH (09:37)
[2018-10-28] MEDS: ENOXAPARIN SODIUM INJ 120 MG/0.8 ML DISP.SYRIN SUBCUT SCH (09:38)
[2018-10-28] MEDS ORDERED: FLUTICASONE NASAL SPRAY 50 MCG/SPRY 120 SPRAY/16 GM NASL PRN (09:38)
[2018-10-28] MEDS: INSULIN REG, HUMAN 100 UNIT/ML 3 ML VIAL (PYX) SUBCUT SCH ×4 (09:38→22:20)
--- NOTE | 2018-10-28 09:58 | PDOC PROGRESS REPORT ---
Subjective Progress Note for:: 10/28/18 Subjective:: 77 year old male with a past medical history of oxygen dependent COPD, obstructive sleep apnea with noncompliance, coronary artery disease with stent remotely, diverticulitis with partial colectomy and diabetes. He presents with approximately a week of abdominal pain prompting him to seek evaluation in the emergency room where he was found to have A. fib with RVR. He started on IV Cardizem and full dose Lovenox then referred to the hospitalist for admission. Patient denies previous episode denies current abdominal pain. CT of the abdomen pelvis was unremarkable. Patient denies recent change in medications and otherwise is felt well. 10/27/[id number]-lbju-old male with history of COPD obstructive sleep apnea coronary artery disease with history of stent placement to diabetic admitted for abdominal pain and new onset A. fib with RVR. CT abdomen and pelvis was negative for acute pathology. Chest x-ray was negative for fluid overload. She was initially on Cardizem drip and presently on a Coreg 6.25 mg p.o. twice daily. He is in sinus rhythm. No acute events in the last 24 hours. Patient is afebrile. 10/28/2018 77-year-old male with history of COPD, obstructive sleep apnea, coronary artery disease with stent placement, diabetic admitted with abdominal pain and new onset atrial fibrillation with rapid ventricular rate. CT abdomen pelvis was negative for acute pathology and his abdomen was soft nontender no complaints of the abdominal pain anymore. Patient was initially on Cardizem drip presently on Coreg 6.25 mg p.o. twice a day. His heart rate is 109 and is going in and out of atrial fibrillation. Latest EKG shows atrial fibrillation. Cardiogram was done no valvular pathology was noticed. Dr. Farias went to see the patient yesterday but patient refused to cooperate and told Dr. Farias that he is going to see Dr. Calderon as an outpatient. So Dr. Farias signed off from the patient care. This morning patient was sarcastic agitated, upset and I try to talk to him to him along with the nurse Eunice that that he needs see to the digital performance analyst here because of the new onset of atrial fibrillation and he may need anticoagulation but the patient is insisting he does not want to see the digital performance analyst he does not want any heart surgery but he agreed for anticoagulation with Eliquis. Requested the nurse Eunice to involve the risk management and the patient care. Reason For Visit: AFIB CHEST PAIN Physical Exam Vital Signs: Temp Pulse Resp BP Pulse Ox 98.8 F 100 16 111/41 L 86 L 10/28/18 03:31 10/28/18 07:00 10/28/18 03:31 10/28/18 03:31 10/28/18 03:31 Intake & Output 10/27/18 10/28/18 10/29/18 06:59 06:59 06:59 Intake Total 1000 621 Output Total 325 Balance 1000 296 Weight 105.8 kg 109.6 kg General appearance: PRESENT: no acute distress Head exam: PRESENT: atraumatic Eye exam: PRESENT: PERRLA Mouth exam: PRESENT: moist, tongue midline Neck exam: ABSENT: carotid bruit, JVD, lymphadenopathy, thyromegaly Respiratory exam: PRESENT: clear to auscultation jorje. ABSENT: rales, rhonchi, wheezes Cardiovascular exam: PRESENT: irregular rhythm GI/Abdominal exam: PRESENT: normal bowel sounds, soft. ABSENT: distended, guarding, mass, organolmegaly, rebound, tenderness Extremities exam: PRESENT: full ROM. ABSENT: calf tenderness, clubbing, pedal edema Neurological exam: PRESENT: alert, awake, oriented to person, oriented to place, oriented to time, oriented to situation, CN II-XII grossly intact. ABSENT: motor sensory deficit Psychiatric exam: PRESENT: appropriate affect, normal mood. ABSENT: homicidal ideation, suicidal ideation Results Laboratory Results: 10/28/18 05:28 10/28/18 05:28 10/28/18 10/28/18 05:28 05:28 WBC 12.3 H RBC 4.37 Hgb 13.1 L Hct 39.2 MCV 90 MCH 30.0 MCHC 33.4 RDW 13.9 Plt Count 246 Sodium 135.7 L Potassium 4.1 D Chloride 98 Carbon Dioxide 31 H Anion Gap 7 BUN 27 H Creatinine 1.08 Est GFR ( Amer) > 60 Est GFR (Non-Af Amer) > 60 Glucose 210 H Calcium 9.8 Magnesium 1.7 Total Bilirubin 1.2 AST 21 ALT 28 Alkaline Phosphatase 66 Total Protein 6.2 L Albumin 3.3 L 10/26/18 10/27/18 10/27/18 19:52 01:49 08:21 Creatine Kinase CK-MB (CK-2) 0.64 0.74 Troponin I < 0.012 < 0.012 < 0.012 NT-Pro-B Natriuret Pep 10/27/18 10/27/18 10/28/18 08:21 15:00 05:28 Creatine Kinase < 20 L CK-MB (CK-2) 0.38 Troponin I < 0.012 NT-Pro-B Natriuret Pep 237 Impressions: Abdomen/Pelvis CT 10/26/18 00:00 IMPRESSION: No acute disease. Chest X-Ray 10/26/18 20:17 IMPRESSION: Cardiomegaly. No acute cardiopulmonary process copyright 2010 [employer]- All Rights Reserved Assessment & Plan - Diagnosis (1) Atrial fibrillation Is this a current diagnosis for this admission?: Yes Plan: 10/27/2018 patient was admitted with new onset atrial fibrillation with RVR. Initially on Cardizem drip, presently is on Coreg 6.5 mg p.o. twice daily. He is in sinus rhythm. Cardiology consult was requested echocardiogram requested. Patient is asymptomatic. Patient states he is going to follow-up with Dr. Calderon as an outpatient. He reluctantly agreed to see the digital performance analyst today. Patient is presently on Lovenox therapeutic dose. FAll precautions are requested.. 10/28/2018-patient was admitted with atrial fibrillation with RVR is present heart rate is 109. He is on Coreg 6.25 mg p.o. twice daily. He is on Plavix aspirin and Lovenox. He is refusing see the digital performance analyst team here in this hospital. He agreed to be on anticoagulation Eliquis. Put him on 2.5 mg of Eliquis twice daily and Cardizem 60 mg p.o. twice daily for rate control. Echocardiogram shows no valvular abnormalities. Requested the risk management involved in the case. Hopefully we may discharge him tomorrow. (2) Abdominal pain Is this a current diagnosis for this admission?: Yes Plan: Likely an anginal equivalent given onset with A. fib with RVR. Follow-up cardiac enzymes consider cardiac stress test. 10/27/2018-patient came in with abdominal pain CT abdomen pelvis was negative abdominal pain was resolved is most likely secondary to atrial fibrillation RVR causing the anginal symptoms. 10/28/2018 patient was admitted with abdominal pain CT abdominal pelvis was negative for acute pathology. Abdominal pain probably secondary to atrial fibrillation. On examination of the abdomen there is no bruit, patient is not complaining of any postprandial abdominal pain. (3) Chest pain Is this a current diagnosis for this admission?: Yes Plan: 10/27/2018 patient came in with chest pain probably secondary to. Cardiac enzymes are negative. no Complaints of chest pain this morning. 10/28/2018-patient came in with complaints of chest pain probably secondary to A. fib with RVR. Cardiac enzymes are negative. Echocardiogram was normal. No complaints of chest pains this morning. (4) Obstructive sleep apnea Is this a current diagnosis for this admission?: Yes Plan: 10/27/2018 patient history of obstructive sleep apnea is noncompliant with his BiPAP machine at home. BiPAP was requested during this hospital stay. 10/28/2018-patient has history of obstructive sleep apnea is noncompliant with BiPAP at home. Order for the BiPAP was placed here in this hospital. (5) COPD (chronic obstructive pulmonary disease) Is this a current diagnosis for this admission?: Yes Plan: 10/27/2018-patient is given the history of COPD not on home oxygen he is presently on Xopenex, Atrovent, Flonase and supplemental oxygen. Pulse ox is 93% on 2 L. Chest examination bilateral entry was decreased but no wheezing no crepitations. 10/28/2018 patient has history of COPD not on home oxygen. He is on oxygen 2 L v ia nasal cannula here pulse ox is 96% on 2 L is on Xopenex, Atrovent, Flonase. (6) Obesity (BMI 30-39.9) Is this a current diagnosis for this admission?: Yes Plan: 10/27/2018-patient's BMI is more than 35. Diet exercise weight loss and lifestyle modifications discussed. Dietary consult was requested. 10/28/2018-plan is to continue the present management. (7) Diabetes 1.5, managed as type 2 Is this a current diagnosis for this admission?: Yes Plan: 10/27/2018 patient is giving history of type 2 diabetes mellitus. Hemoglobin A1c is requested. pt going to be on insulin sliding scale before meals at bedtime with Humalog coverage. Dietary consult was requested is on diabetic diet. 10/28/2018 patient has history of type 2 diabetes mellitus latest blood sugar is 182. Hemoglobin A1c is 10.8. Patient is presently on insulin sliding scale before meals and at bedtime. And is on metformin thousand milligrams p.o. twice daily at home which was on hold. Plan is to start him on Lantus 10 units twice a day. (8) Coronary artery disease Is this a current diagnosis for this admission?: Yes Plan: 10/27/2018-patient is given the history of coronary artery disease status post stent placement complaint of chest pain at the time of admission cardiac enzymes are negative so far. His chest pain-free this morning. Chest pain probably secondary to A. fib with RVR which was resolved. 10/28/2018 patient has history of coronary artery disease status post stent placement. Chest pain during this admission probably secondary to A. fib with RVR. No complaints of chest pains today. - Time Time Spent with patient: 15-24 minutes Medications reviewed and adjusted accordingly: Yes Anticipated discharge: Home
[2018-10-28] MEDS ORDERED: INSULIN GLARGINE,HUM.REC.ANLOG 1,000 UNIT/10 ML UNIT SUBCUT SCH (10:00)
[2018-10-28] MEDS ORDERED: INSULIN GLARGINE,HUM.REC.ANLOG 300 UNIT/3 ML INSULN.PEN SUBCUT SCH (11:00)
[2018-10-28] MEDS: EZETIMIBE 10 MG TABLET PO SCH (13:42)
[2018-10-28] MEDS: APIXABAN 2.5 MG TABLET PO SCH ×2 (13:42→18:27)
[2018-10-28] MEDS: DILTIAZEM HCL 60 MG TABLET PO SCH ×2 (13:42→21:48)
[2018-10-28] MEDS: RANOLAZINE 500 MG TAB.SR.12H PO SCH ×2 (13:43→21:49)
[2018-10-28] MEDS: INSULIN GLARGINE,HUM.REC.ANLOG 300 UNIT/3 ML INSULN.PEN SUBCUT SCH ×2 (13:47→22:16)
[2018-10-28] MEDS: ATORVASTATIN CALCIUM 80 MG TABLET PO SCH (21:49)
[2018-10-29] MEDS: IPRATROPIUM BROMIDE 0.02% NEB 0.5 MG/2.5 ML AMPUL NEB SCH ×4 (02:07→20:23)
[2018-10-29] MEDS: LEVALBUTEROL HCL NEB 1.25 MG/3 ML AMPUL NEB SCH ×4 (02:07→20:23)
[2018-10-29] MEDS: LANSOPRAZOLE 30 MG TAB.RAP.DR PO SCH (05:29)
[2018-10-29] MEDS: APIXABAN 2.5 MG TABLET PO SCH ×2 (09:18→17:53)
[2018-10-29] MEDS: DILTIAZEM HCL 60 MG TABLET PO SCH ×2 (09:18→23:19)
[2018-10-29] MEDS: RANOLAZINE 500 MG TAB.SR.12H PO SCH ×2 (09:18→23:18)
[2018-10-29] MEDS: INSULIN REG, HUMAN 100 UNIT/ML 3 ML VIAL (PYX) SUBCUT SCH ×4 (09:18→23:19)
[2018-10-29] MEDS: INSULIN GLARGINE,HUM.REC.ANLOG 300 UNIT/3 ML INSULN.PEN SUBCUT SCH (09:18)
[2018-10-29] MEDS: EZETIMIBE 10 MG TABLET PO SCH (09:19)
[2018-10-29] MEDS: DOCUSATE SODIUM 100 MG CAPSULE PO SCH ×3 (09:19→23:18)
[2018-10-29] MEDS: FLUTICASONE NASAL SPRAY 50 MCG/SPRY 120 SPRAY/16 GM NASL SCH ×2 (09:19→23:19)
[2018-10-29] MEDS: CARVEDILOL 6.25 MG TABLET PO SCH ×2 (09:19→17:53)
--- NOTE | 2018-10-29 11:46 | PDOC PROGRESS REPORT ---
Subjective Progress Note for:: 10/29/18 Subjective:: 77 year old male with a past medical history of oxygen dependent COPD, obstructive sleep apnea with noncompliance, coronary artery disease with stent remotely, diverticulitis with partial colectomy and diabetes. He presents with approximately a week of abdominal pain prompting him to seek evaluation in the emergency room where he was found to have A. fib with RVR. He started on IV Cardizem and full dose Lovenox then referred to the hospitalist for admission. Patient denies previous episode denies current abdominal pain. CT of the abdomen pelvis was unremarkable. Patient denies recent change in medications and otherwise is felt well. 10/27/[id number]-old male with history of COPD obstructive sleep apnea coronary artery disease with history of stent placement to diabetic admitted for abdominal pain and new onset A. fib with RVR. CT abdomen and pelvis was negative for acute pathology. Chest x-ray was negative for fluid overload. She was initially on Cardizem drip and presently on a Coreg 6.25 mg p.o. twice daily. He is in sinus rhythm. No acute events in the last 24 hours. Patient is afebrile. 10/28/2018 77-year-old male with history of COPD, obstructive sleep apnea, coronary artery disease with stent placement, diabetic admitted with abdominal pain and new onset atrial fibrillation with rapid ventricular rate. CT abdomen pelvis was negative for acute pathology and his abdomen was soft nontender no complaints of the abdominal pain anymore. Patient was initially on Cardizem drip presently on Coreg 6.25 mg p.o. twice a day. His heart rate is 109 and is going in and out of atrial fibrillation. Latest EKG shows atrial fibrillation. Cardiogram was done no valvular pathology was noticed. Dr. Farias went to see the patient yesterday but patient refused to cooperate and told Dr. Farias that he is going to see Dr. Calderon as an outpatient. So Dr. Farias signed off from the patient care. This morning patient was sarcastic agitated, upset and I try to talk to him to him along with the nurse Eunice that that he needs see to the car pick up driver here because of the new onset of atrial fibrillation and he may need anticoagulation but the patient is insisting he does not want to see the car pick up driver he does not want any heart surgery but he agreed for anticoagulation with Eliquis. Requested the nurse Eunice to involve the risk management and the patient care. 10/29/1999 [id number] male admitted for abdominal pain found to have A. fib with rapid ventricular rate, he refused a cardiology consult refused to talk to Dr. Farias. He agreed to be on Eliquis started on Eliquis yesterday and started on Cardizem 60 mg p.o. twice a day heart rate is better controlled at 97 today. Patient is still complaining of right-sided abdominal pain. Initial CT abdomen pelvis was negative for acute pathology but because of patient's complaining of persistent pain in the right upper quadrant planning to do the ultrasound of the gallbladder. No other complaints from the patient. No acute events in the last 24 hours. Patient is afebrile. Reason For Visit: AFIB CHEST PAIN Physical Exam Vital Signs: Temp Pulse Resp BP Pulse Ox 97.5 F 97 18 92/57 L 98 10/29/18 08:07 10/29/18 08:07 10/29/18 08:07 10/29/18 08:07 10/29/18 08:07 Intake & Output 10/28/18 10/29/18 10/30/18 06:59 06:59 06:59 Intake Total 621 857 Output Total 325 1200 Balance 296 -343 Weight 109.6 kg 109.5 kg General appearance: PRESENT: no acute distress Head exam: PRESENT: atraumatic Eye exam: PRESENT: PERRLA Neck exam: ABSENT: carotid bruit, JVD, lymphadenopathy, thyromegaly Respiratory exam: PRESENT: decreased breath sounds Cardiovascular exam: PRESENT: irregular rhythm, systolic murmur, tachycardia GI/Abdominal exam: PRESENT: normal bowel sounds, soft, other - On examination of the abdomen voluntary guarding and rigidity on gentle palpation of the right side of the abdomen.. ABSENT: distended, guarding, mass, organolmegaly, rebound Extremities exam: PRESENT: full ROM. ABSENT: calf tenderness, clubbing, pedal edema Neurological exam: PRESENT: alert, awake, oriented to person, oriented to place, oriented to time, oriented to situation, CN II-XII grossly intact. ABSENT: motor sensory deficit Psychiatric exam: PRESENT: appropriate affect, normal mood. ABSENT: homicidal ideation, suicidal ideation Results Laboratory Results: 10/28/18 05:28 10/28/18 05:28 10/26/18 10/27/18 10/27/18 19:52 01:49 08:21 Creatine Kinase CK-MB (CK-2) 0.64 0.74 Troponin I < 0.012 < 0.012 < 0.012 NT-Pro-B Natriuret Pep 10/27/18 10/27/18 10/28/18 08:21 15:00 05:28 Creatine Kinase < 20 L CK-MB (CK-2) 0.38 Troponin I < 0.012 NT-Pro-B Natriuret Pep 237 Impressions: Abdomen/Pelvis CT 10/26/18 00:00 IMPRESSION: No acute disease. Chest X-Ray 10/26/18 20:17 IMPRESSION: Cardiomegaly. No acute cardiopulmonary process copyright 2010 [employer]- All Rights Reserved Assessment & Plan - Diagnosis (1) Atrial fibrillation Is this a current diagnosis for this admission?: Yes Plan: 10/27/2018 patient was admitted with new onset atrial fibrillation with RVR. Initially on Cardizem drip, presently is on Coreg 6.5 mg p.o. twice daily. He is in sinus rhythm. Cardiology consult was requested echocardiogram requested. Patient is asymptomatic. Patient states he is going to follow-up with Dr. Calderon as an outpatient. He reluctantly agreed to see the car pick up driver today. Patient is presently on Lovenox therapeutic dose. FAll precautions are requested.. 10/28/2018-patient was admitted with atrial fibrillation with RVR is present heart rate is 109. He is on Coreg 6.25 mg p.o. twice daily. He is on Plavix aspirin and Lovenox. He is refusing see the car pick up driver team here in this hospital. He agreed to be on anticoagulation Eliquis. Put him on 2.5 mg of Eliquis twice daily and Cardizem 60 mg p.o. twice daily for rate control. Echocardiogram shows no valvular abnormalities. Requested the risk management involved in the case. Hopefully we may discharge him tomorrow. 10/29/2018-patient was admitted with new onset atrial fibrillation with RVR. Heart rate today is 97. He is on Cardizem 60 mg p.o. twice a day and also was started on Eliquis 2.5 [address] p[address] twice daily. Dr. Farias went to talk to him to try to help him but pt refused to cooperate with Dr. Farias. Patient is insisting that Dr. Calderon is his car pick up driver and he does not want to see anybody else. Plan is to continue the present management. (2) Abdominal pain Is this a current diagnosis for this admission?: Yes Plan: Likely an anginal equivalent given onset with A. fib with RVR. Follow-up cardiac enzymes consider cardiac stress test. 10/27/2018-patient came in with abdominal pain CT abdomen pelvis was negative abdo derek pain was resolved is most likely secondary to atrial fibrillation RVR causing the anginal symptoms. 10/28/2018 patient was admitted with abdominal pain CT abdominal pelvis was negative for acute pathology. Abdominal pain probably secondary to atrial fibrillation. On examination of the abdomen there is no bruit, patient is not complaining of any postprandial abdominal pain. 10/29/2018-patient came in with abdominal pain CT abdomen/pelvis negative for acute pathology he still complaining of right-sided upper abdominal pain ,going to do the urine gallbladder ultrasound. Patient is happy with recommendation and is willing to stay another day if necessary. She denies any problems associated with feeding like a postprandial pain. (3) Chest pain Is this a current diagnosis for this admission?: Yes Plan: 10/27/2018 patient came in with chest pain probably secondary to. Cardiac enzymes are negative. no Complaints of chest pain this morning. 10/28/2018-patient came in with complaints of chest pain probably secondary to A. fib with RVR. Cardiac enzymes are negative. Echocardiogram was normal. No complaints of chest pains this morning. 10/28/2018-patient came in with chest pain most likely secondary to A. fib with rapid ventricular rate. Cardiac enzymes are negative. Echocardiogram was normal. No complaints of chest pains today. (4) Obstructive sleep apnea Is this a current diagnosis for this admission?: Yes Plan: 10/27/2018 patient history of obstructive sleep apnea is noncompliant with his BiPAP machine at home. BiPAP was requested during this hospital stay. 10/28/2018-patient has history of obstructive sleep apnea is noncompliant with BiPAP at home. Order for the BiPAP was placed here in this hospital. 10/29/2018-patient has history of obstructive sleep apnea uses BiPAP at home. He is noncompliant with BiPAP at home. Order was placed for BiPAP here in the hospital. (5) COPD (chronic obstructive pulmonary disease) Is this a current diagnosis for this admission?: Yes Plan: 10/27/2018-patient is given the history of COPD not on home oxygen he is presently on Xopenex, Atrovent, Flonase and supplemental oxygen. Pulse ox is 93% on 2 L. Chest examination bilateral entry was decreased but no wheezing no crepitations. 10/28/2018 patient has history of COPD not on home oxygen. He is on oxygen 2 L via nasal cannula here pulse ox is 96% on 2 L is on Xopenex, Atrovent, Flonase. 10/29/2018-patient has history of COPD not on home oxygen. His pulse ox is 98% on 2 L in the hospital. We are going to discontinue oxygen to see how is doing today. Plan is to discontinue flutter valve therapy and nebulizer treatments. On examination chest bilateral entry was good. (6) Obesity (BMI 30-39.9) Is this a current diagnosis for this admission?: Yes Plan: 10/27/2018-patient's BMI is more than 35. Diet exercise weight loss and lifestyle modifications discussed. Dietary consult was requested. 10/28/2018-plan is to continue the present management. 08/28/2019-patient's BMI is close to 40 again diet exercise weight loss was advised. (7) Diabetes 1.5, managed as type 2 Is this a current diagnosis for this admission?: Yes Plan: 10/27/2018 patient is giving history of type 2 diabetes mellitus. Hemoglobin A1c is requested. pt going to be on insulin sliding scale before meals at bedtime with Humalog coverage. Dietary consult was requested is on diabetic diet. 10/28/2018 patient has history of type 2 diabetes mellitus latest blood sugar is 182. Hemoglobin A1c is 10.8. Patient is presently on insulin sliding scale before meals and at bedtime. And is on metformin thousand milligrams p.o. twice daily at home which was on hold. Plan is to start him on Lantus 10 units twice a day. 10/29/2018-patient has history of type 2 diabetes mellitus his hemoglobin A1c is 10.8. He is on metformin at home which was on hold here. Latest blood sugar is 245. Plan is to increase the Lantus to 15 units twice a day. Also on insulin sliding scale before meals and at bedtime. (8) Coronary artery disease Is this a current diagnosis for this admission?: Yes Plan: 10/27/2018-patient is given the history of coronary artery disease status post stent placement complaint of chest pain at the time of admission cardiac enzymes are negative so far. His chest pain-free this morning. Chest pain probably secondary to A. fib with RVR which was resolved. 10/28/2018 patient has history of coronary artery disease status post stent placement. Chest pain during this admission probably secondary to A. fib with RVR. No complaints of chest pains today. 10/29/2018-patient has history of coronary artery disease status post stent placement. No complaints of chest pains today. - Time Time Spent with patient: 15-24 minutes Medications reviewed and adjusted accordingly: Yes Anticipated discharge: Home
[2018-10-29 13:08] LABS: CREATINE KINASE MB 0.31 ng/mL (<4.55)
[2018-10-29 13:10] LABS: TROPONIN I < 0.012 ng/mL
[2018-10-29] MEDS: INSULIN GLARGINE,HUM.REC.ANLOG 1,000 UNIT/10 ML UNIT SUBCUT SCH ×2 (13:33→23:25)
--- NOTE | 2018-10-29 17:39 | RADIOLOGY REPORT (SQ) ---
EXAM DESCRIPTION: U/S ABDOMEN LIMITED W/O DOP COMPLETED DATE/TIME: 10/29/2018 5:05 pm REASON FOR STUDY: abd pain COMPARISON: None. TECHNIQUE: Dynamic and static grayscale images acquired of the abdomen and recorded on PACS. Additio doreen selected color Doppler and spectral images recorded. LIMITATIONS: Limited visualization. Poor acoustical window FINDINGS: PANCREAS: No obvious mass. LIVER: 19.5 cm Moderate to marked fatty infiltration. No focal masses. LIVER VASCULATURE: Normal directional flow of the main portal vein and hepatic veins. GALLBLADDER: Multiple gallstones. Sludge. Gallbladder wall 7.6 mm. Positive sonographic Alcantar's s ign. ULTRASOUND-DETECTED ALCANTAR'S SIGN: Negative. INTRAHEPATIC DUCTS AND COMMON DUCT: Dilated common bile duct. 1.3 cm. INFERIOR VENA CAVA: Normal flow. AORTA: No aneurysm. RIGHT KIDNEY: Normal size. Normal echogenicity. No solid or suspicious masses. No hydronephros is. No calcifications. PERITONEAL AND RIGHT PLEURAL SPACE: No ascites or effusions. OTHER: No other significant findings. PANCREAS: Not visualize IMPRESSION: Cholelithiasis and cholecystitis. Dilated common bile duct, suspect choledocholithiasis. TECHNICAL DOCUMENTATION: JOB ID: [id number] [employer]- All Rights Reserved Reading location - IP/workstation name: [email or web address]
[2018-10-29 18:56] LABS: CREATINE KINASE MB 0.33 ng/mL (<4.55)
[2018-10-29 19:01] LABS: TROPONIN I < 0.012 ng/mL
[2018-10-29 19:18] LABS: ALANINE AMINOTRANSFERASE 32 U/L (21-72); ALBUMIN 3.2 g/dL (3.5-5.0); ALKALINE PHOSPHATASE 61 U/L (38-126); ASPARTATE AMINO TRANSFERASE 19 U/L (17-59); BILIRUBIN,DIRECT 0.5 mg/dL (0.0-0.4); LIPASE 47.6 U/L (23-300)
[2018-10-29 20:04] LABS: ABSOLUTE EOSINOPHILS # (AUTO) 0.1 10^3/uL (0.0-0.6); ABSOLUTE LYMPHOCYTES (AUTO) 1.2 10^3/uL (0.5-4.7); ABSOLUTE MONOCYTES (AUTO) 1.2 10^3/uL (0.1-1.4); BASOPHILS % (AUTO) 0.4 % (0-2); EOSINOPHILS % (AUTO) 1.3 % (0-6); HEMATOCRIT 37.1 % (37.9-51.0); HEMOGLOBIN 12.4 g/dL (13.5-17.0); LYMPHOCYTES % (AUTO) 12.8 % (13-45); MEAN CORPUSCULAR HEMOGLOBIN 30.4 pg (27.0-33.4); MEAN CORPUSCULAR HGB CONC 33.5 g/dL (32.0-36.0); MEAN CORPUSCULAR VOLUME 91 fl (80-97); MONOCYTES % (AUTO) 12.5 % (3-13); PLATELET COUNT 211 10^3/uL (150-450); RED BLOOD COUNT 4.08 10^6/uL (4.35-5.55); RED CELL DISTRIBUTION WIDTH 13.6 % (11.5-14.0); TOTAL CELLS COUNTED % (AUTO) 100 %; WHITE BLOOD COUNT 9.6 10^3/uL (4.0-10.5)
[2018-10-29 20:21] LABS: PROTHROMBIN TIME 16.8 SEC (11.4-15.4)
[2018-10-29 20:22] LABS: PARTIAL THROMBOPLASTIN TIME 37.1 SEC (23.5-35.8)
[2018-10-29] MEDS: ATORVASTATIN CALCIUM 80 MG TABLET PO SCH (23:18)
[2018-10-30 01:03] LABS: CREATINE KINASE MB 0.26 ng/mL (<4.55)
[2018-10-30 01:04] LABS: TROPONIN I < 0.012 ng/mL
[2018-10-30] MEDS: LEVALBUTEROL HCL NEB 1.25 MG/3 ML AMPUL NEB SCH ×4 (01:57→21:22)
[2018-10-30] MEDS: IPRATROPIUM BROMIDE 0.02% NEB 0.5 MG/2.5 ML AMPUL NEB SCH ×4 (01:57→21:22)
[2018-10-30] MEDS: OXYCODONE-ACETAMINOPHEN 5-325 MG TABLET PO PRN ×3 (04:12→21:19)
[2018-10-30] MEDS: LANSOPRAZOLE 30 MG TAB.RAP.DR PO SCH (05:53)
[2018-10-30] MEDS: HEPARIN SOD (PORCINE) 1,000 UNIT/ML 10 ML VIAL IV PRN ×3 (06:01→21:32)
[2018-10-30 06:02] LABS: HEMATOCRIT 39.6 % (37.9-51.0); HEMOGLOBIN 13.3 g/dL (13.5-17.0); MEAN CORPUSCULAR HEMOGLOBIN 30.1 pg (27.0-33.4); MEAN CORPUSCULAR HGB CONC 33.6 g/dL (32.0-36.0); MEAN CORPUSCULAR VOLUME 90 fl (80-97); PLATELET COUNT 270 10^3/uL (150-450); RED BLOOD COUNT 4.43 10^6/uL (4.35-5.55); RED CELL DISTRIBUTION WIDTH 13.4 % (11.5-14.0); WHITE BLOOD COUNT 9.6 10^3/uL (4.0-10.5)
[2018-10-30] MEDS: HEPARIN SODIUM,PORCINE/D5W 25,000 UNIT/250 ML RTUINJ IV PRN (06:03)
[2018-10-30 06:38] LABS: ALANINE AMINOTRANSFERASE 36 U/L (21-72); ALBUMIN 3.3 g/dL (3.5-5.0); ALKALINE PHOSPHATASE 71 U/L (38-126); ANION GAP 10 (5-19); ASPARTATE AMINO TRANSFERASE 21 U/L (17-59); BILIRUBIN,DIRECT 0.4 mg/dL (0.0-0.4); BILIRUBIN,TOTAL 0.8 mg/dL (0.2-1.3); BLOOD UREA NITROGEN 20 mg/dL (7-20); CALCIUM 9.9 mg/dL (8.4-10.2); CARBON DIOXIDE 30 mmol/L (22-30); CHLORIDE 96 mmol/L (98-107); GLUCOSE 262 mg/dL (75-110); POTASSIUM 4.3 mmol/L (3.6-5.0); SODIUM 136.1 mmol/L (137-145)
[2018-10-30] MEDS: INSULIN GLARGINE,HUM.REC.ANLOG 1,000 UNIT/10 ML UNIT SUBCUT SCH ×2 (09:12→21:21)
[2018-10-30] MEDS: DOCUSATE SODIUM 100 MG CAPSULE PO SCH ×3 (09:13→21:20)
[2018-10-30] MEDS: CARVEDILOL 6.25 MG TABLET PO SCH ×2 (09:13→18:12)
[2018-10-30] MEDS: DILTIAZEM HCL 60 MG TABLET PO SCH ×2 (09:13→21:20)
[2018-10-30] MEDS: INSULIN REG, HUMAN 100 UNIT/ML 3 ML VIAL (PYX) SUBCUT SCH ×4 (09:13→23:41)
[2018-10-30] MEDS: RANOLAZINE 500 MG TAB.SR.12H PO SCH ×2 (09:13→21:19)
[2018-10-30] MEDS: FLUTICASONE NASAL SPRAY 50 MCG/SPRY 120 SPRAY/16 GM NASL SCH ×2 (09:14→21:20)
[2018-10-30] MEDS: EZETIMIBE 10 MG TABLET PO SCH (09:14)
--- NOTE | 2018-10-30 10:16 | PDOC CONSULTATION ---
Consultation Consult Date: 10/30/18 Consult reason:: Cholecystitis with dilated CBD History of Present Illness Admission Date/PCP: 10/26/18 23:14 CHELA IYER MD History of Present Illness: BABAR WILLARD is a 77 year old male who is quite belligerant c/o RUQ pains for past several days. Claimed first started at the lower abdominal incision. Denies nausea/vomiting,fever/chills . Constipated. Had US yesterday which showed cholelithiasis,cholecystitis and dilated CBD and suspicious for choledocholithiasis. Had colon resection for acute sigmoid diverticulitis. Has A Fib on eliquis and now bridge with Heparin. Past Medical History Cardiac Medical History: Reports: Congestive Heart Failure, Coronary Artery Disease, Myocardial Infarction - 12YRSAGO STENT, Hyperlipidema, Hypertension Pulmonary Medical History: Denies: Asthma, Bronchitis, Chronic Obstructive Pulmonary Disease (COPD), Pneumonia Neurological Medical History: Denies: Seizures Endocrine Medical History: Reports: Diabetes Mellitus Type 2 GI Medical History: Reports: Gastroesophageal Reflux Disease Musculoskeltal Medical History: Denies: Arthritis Psychiatric Medical History: Denies: Alcohol Dependency, Depression, Tobacco Dependency Hematology: Denies: Anemia Past Surgical History Past Surgical History: Reports: Cardiac Catheterization - stent x1, Coronary Stent, Orthopedic Surgery - lumbar discectomy, Other - Colon resection for diverticulitis Social History Lives with: Family Smoking Status: Former Smoker Frequency of Alcohol Use: None Hx Recreational Drug Use: No Drugs: None Hx Prescription Drug Abuse: No - Advance Directive Resuscitation Status: Full Code Family History Family History: COPD Parental Family History Reviewed: Yes Children Family History Reviewed: No Sibling(s) Family History Reviewed.: No Medication/Allergy Home Medications: Carvedilol [Coreg 6.25 Mg Tablet] 6.25 mg PO BID 12/27/11 Clopidogrel Bisulfate [Plavix 75 Mg Tablet] 75 mg PO DAILY 12/27/11 Docusate Sodium [Colace 100 mg Capsule] 200 mg PO QHS 12/27/11 Meloxicam [Mobic 7.5 Mg Tablet] 7.5 mg PO QHS 12/27/11 Nitroglycerin [Nitrostat 0.4 mg (1/150 Gr) Tabs 25/Bottle] 0.4 mg SL PRN PRN 12/27/11 Simvastatin [Zocor 40 mg Tablet] 40 mg PO QHS 12/27/11 Metformin HCl [Glucophage] 1,000 mg PO BID 12/23/13 Potassium Chloride 10 meq PO DAILY 12/23/13 Albuterol Sulfate [Ventolin 0.083% Neb 2.5 mg/3 ml Ampul] 1 vial NEB BIDP PRN 10/27/18 Albuterol Sulfate [Ventolin Hfa 8 gm Mdi (1 Mdi/ER Disp)] 2 puff IH BIDP PRN 10/27/18 Aspirin [Ecotrin 81 mg EC Tablet] 81 mg PO DAILY 10/27/18 Dexlansoprazole [Dexilant 60 mg Capsule] 60 mg PO DAILY 10/27/18 Ezetimibe [Zetia 10 mg Tablet] 10 mg PO DAILY 10/27/18 Fluticasone Propionate [Flonase Nasal Magnet 50 Mcg/Magnet 16 gm] 1 spray NASL DAILYP PRN 10/27/18 Fluticasone/Umeclidin/Vilanter [Trelegy 100-62.5-25 Mcg Ellipta 14 Dose/Dpi] 2 puff IH DAILY 10/27/18 Ranolazine [Ranexa 500 mg Tab.sr] 500 mg PO Q12 10/27/18 Allergies/Adverse Reactions: No Known Allergies Allergy (Verified 03/02/18 10:37) Review of Systems Constitutional: PRESENT: as per HPI Eyes: PRESENT: other - no visual/hearing changes Cardiovascular: PRESENT: other - denies chest pain/cough Gastrointestinal: PRESENT: abdominal pain, constipation Genitourinary: PRESENT: other - no dysuria Physical Exam Vital Signs: Temp Pulse Resp BP Pulse Ox 97.6 F 78 18 128/71 H 90 L 10/30/18 07:18 10/30/18 08:06 10/30/18 08:06 10/30/18 07:18 10/30/18 08:06 Intake & Output 10/29/18 10/30/18 10/31/18 06:59 06:59 06:59 Intake Total 857 1175 Output Total 1200 625 Balance -343 550 Weight 109.5 kg 104.9 kg General appearance: PRESENT: mild distress, obese Head exam: PRESENT: atraumatic Eye exam: PRESENT: conjunctiva pink Mouth exam: PRESENT: moist Neck exam: PRESENT: full ROM Respiratory exam: PRESENT: clear to auscultation jorje Cardiovascular exam: PRESENT: irregular rhythm Pulses: PRESENT: normal radial pulses Vascular exam: PRESENT: normal capillary refill GI/Abdominal exam: PRESENT: soft, tenderness - RUQ Rectal exam: PRESENT: deferred Extremities exam: PRESENT: full ROM Musculoskeletal exam: PRESENT: ambulatory Neurological exam: PRESENT: alert, oriented to person, oriented to place, oriented to time, oriented to situation Psychiatric exam: PRESENT: anxious Skin exam: PRESENT: normal color, warm Results Laboratory Results: 10/30/18 05:28 10/30/18 05:28 10/29/18 10/29/18 10/30/18 18:19 19:50 05:28 WBC 9.6 RBC 4.08 L Hgb 12.4 L Hct 37.1 L MCV 91 MCH 30.4 MCHC 33.5 RDW 13.6 Plt Count 211 Seg Neutrophils % 73.0 Lymphocytes % 12.8 L Monocytes % 12.5 Eosinophils % 1.3 Basophils % 0.4 Absolute Neutrophils 7.0 Absolute Lymphocytes 1.2 Absolute Monocytes 1.2 Absolute Eosinophils 0.1 Absolute Basophils 0.0 Sodium 136.1 L Potassium 4.3 Chloride 96 L Carbon Dioxide 30 Anion Gap 10 BUN 20 Creatinine 0.79 Est GFR ( Amer) > 60 Est GFR (Non-Af Amer) > 60 Glucose 262 H Calcium 9.9 Magnesium 1.8 Total Bilirubin 1.0 0.8 AST 19 21 ALT 32 36 Alkaline Phosphatase 61 71 Total Protein 6.0 L 6.0 L Albumin 3.2 L 3.3 L Lipase 47.6 10/30/18 05:28 WBC 9.6 RBC 4.43 Hgb 13.3 L Hct 39.6 MCV 90 MCH 30.1 MCHC 33.6 RDW 13.4 Plt Count 270 Seg Neutrophils % Lymphocytes % Monocytes % Eosinophils % Basophils % Absolute Neutrophils Absolute Lymphocytes Absolute Monocytes Absolute Eosinophils Absolute Basophils Sodium Potassium Chloride Carbon Dioxide Anion Gap BUN Creatinine Est GFR ( Amer) Est GFR (Non-Af Amer) Glucose Calcium Magnesium Total Bilirubin AST ALT Alkaline Phosphatase Total Protein Albumin Lipase 10/26/18 10/27/18 10/27/18 19:52 01:49 08:21 Creatine Kinase CK-MB (CK-2) 0.64 0.74 Troponin I < 0.012 < 0.012 < 0.012 NT-Pro-B Natriuret Pep 10/27/18 10/27/18 10/28/18 08:21 15:00 05:28 Creatine Kinase < 20 L CK-MB (CK-2) 0.38 Troponin I < 0.012 NT-Pro-B Natriuret Pep 237 10/29/18 10/29/18 10/29/18 12:23 12:23 18:19 Creatine Kinase < 20 L < 20 L CK-MB (CK-2) 0.31 Troponin I < 0.012 NT-Pro-B Natriuret Pep 10/29/18 10/30/18 10/30/18 18:19 00:24 00:24 Creatine Kinase < 20 L CK-MB (CK-2) 0.33 0.26 Troponin I < 0.012 < 0.012 NT-Pro-B Natriuret Pep Impressions: Abdomen/Pelvis CT 10/26/18 00:00 IMPRESSION: No acute disease. Chest X-Ray 10/26/18 20:17 IMPRESSION: Cardiomegaly. No acute cardiopulmonary process copyright 2011 [employer]- All Rights Reserved Abdomen Ultrasound 10/29/18 00:00 IMPRESSION: Cholelithiasis and cholecystitis. Dilated common bile duct, suspect choledocholithiasis. Assessment & Plan - Diagnosis (1) Cholelithiasis and acute cholecystitis without obstruction Is this a current diagnosis for this admission?: Yes (2) Common bile duct dilatation Is this a current diagnosis for this admission?: Yes - Time Time Spent: 30 to 50 Minutes - Inpatient Certification Medical Necessity: Need For IV Fluids, Need for IV Antibiotics, Need for Surgery - Plan Summary Plan Summary: MRCP If no CBD stone Lap lindy vs open lindy Has a midline scar from colon resection for diverticulitis which may R/O lap lindy. IV antibiotics
[2018-10-30] MEDS ORDERED: MORPHINE SULFATE 10 MG/ML INJ IV PRN (10:44)
--- NOTE | 2018-10-30 11:32 | PDOC PROGRESS REPORT ---
Subjective Progress Note for:: 10/30/18 Subjective:: 77 year old male with a past medical history of oxygen dependent COPD, obstructive sleep apnea with noncompliance, coronary artery disease with stent remotely, diverticulitis with partial colectomy and diabetes. He presents with approximately a week of abdominal pain prompting him to seek evaluation in the emergency room where he was found to have A. fib with RVR. He started on IV Cardizem and full dose Lovenox then referred to the hospitalist for admission. Patient denies previous episode denies current abdominal pain. CT of the abdomen pelvis was unremarkable. Patient denies recent change in medications and otherwise is felt well. 10/27/[id number]-lhhg-old male with history of COPD obstructive sleep apnea coronary artery disease with history of stent placement to diabetic admitted for abdominal pain and new onset A. fib with RVR. CT abdomen and pelvis was negative for acute pathology. Chest x-ray was negative for fluid overload. She was initially on Cardizem drip and presently on a Coreg 6.25 mg p.o. twice daily. He is in sinus rhythm. No acute events in the last 24 hours. Patient is afebrile. 10/28/2018 77-year-old male with history of COPD, obstructive sleep apnea, coronary artery disease with stent placement, diabetic admitted with abdominal pain and new onset atrial fibrillation with rapid ventricular rate. CT abdomen pelvis was negative for acute pathology and his abdomen was soft nontender no complaints of the abdominal pain anymore. Patient was initially on Cardizem drip presently on Coreg 6.25 mg p.o. twice a day. His heart rate is 109 and is going in and out of atrial fibrillation. Latest EKG shows atrial fibrillation. Cardiogram was done no valvular pathology was noticed. Dr. Farias went to see the patient yesterday but patient refused to cooperate and told Dr. Farias that he is going to see Dr. Calderon as an outpatient. So Dr. Farias signed off from the patient care. This morning patient was sarcastic agitated, upset and I try to talk to him to him along with the nurse Eunice that that he needs see to the corporate scheduler here because of the new onset of atrial fibrillation and he may need anticoagulation but the patient is insisting he does not want to see the corporate scheduler he does not want any heart surgery but he agreed for anticoagulation with Eliquis. Requested the nurse Eunice to involve the risk management and the patient care. 10/29/2018 77-year-old male admitted for abdominal pain found to have A. fib with rapid ventricular rate, he refused a cardiology consult refused to talk to Dr. Farias. He agreed to be on Eliquis started on Eliquis yesterday and started on Cardizem 60 mg p.o. twice a day heart rate is better controlled at 97 today. Patient is still complaining of right-sided abdominal pain. Initial CT abdomen pelvis was negative for acute pathology but because of patient's complaining of persistent pain in the right upper quadrant planning to do the ultrasound of the gallbladder. No other complaints from the patient. No acute events in the last 24 hours. Patient is afebrile. 10/30/[id number]-egth-old male admitted for abdominal pain also found to have A. fib with rapid ventricular rate. He was started on Eliquis and Cardizem p.o. Yesterday he is complaining of right-sided abdominal pain, initial CT came back negative for acute pathology. Ultrasound of the gallbladder was done found to have a dilated bile duct and gallstones possible Flora cystitis. Surgical team saw the patient this morning they recommended MRCP. As per the surgical recommendations patient was started on heparin drip yesterday and Eliquis was discontinued. I spoke to Dr. Turner this morning he said if necessary they may take the patient to the surgery tomorrow. No acute events in the last 24 hours. Patient is afebrile. Reason For Visit: AFIB CHEST PAIN Physical Exam Vital Signs: Temp Pulse Resp BP Pulse Ox 97.6 F 78 18 128/71 H 90 L 10/30/18 07:18 10/30/18 08:06 10/30/18 08:06 10/30/18 07:18 10/30/18 08:06 Intake & Output 10/29/18 10/30/18 10/31/18 06:59 06:59 06:59 Intake Total 857 1175 Output Total 1200 625 Balance -343 550 Weight 109.5 kg 104.9 kg General appearance: PRESENT: no acute distress Head exam: PRESENT: atraumatic Eye exam: PRESENT: PERRLA Mouth exam: PRESENT: moist, tongue midline Neck exam: ABSENT: carotid bruit, JVD, lymphadenopathy, thyromegaly Respiratory exam: PRESENT: decreased breath sounds Cardiovascular exam: PRESENT: irregular rhythm, systolic murmur, tachycardia GI/Abdominal exam: PRESENT: other - Abdomen was soft bowel sounds are present complaining of right upper quadrant tenderness on gentle palpation. Extremities exam: PRESENT: full ROM. ABSENT: calf tenderness, clubbing, pedal edema Neurological exam: PRESENT: alert, awake, oriented to person, oriented to place, oriented to time, oriented to situation, CN II-XII grossly intact. ABSENT: motor sensory deficit Psychiatric exam: PRESENT: appropriate affect, normal mood. ABSENT: homicidal ideation, suicidal ideation Results Laboratory Results: 10/30/18 05:28 10/30/18 05:28 10/29/18 10/29/18 10/30/18 18:19 19:50 05:28 WBC 9.6 RBC 4.08 L Hgb 12.4 L Hct 37.1 L MCV 91 MCH 30.4 MCHC 33.5 RDW 13.6 Plt Count 211 Seg Neutrophils % 73.0 Lymphocytes % 12.8 L Monocytes % 12.5 Eosinophils % 1.3 Basophils % 0.4 Absolute Neutrophils 7.0 Absolute Lymphocytes 1.2 Absolute Monocytes 1.2 Absolute Eosinophils 0.1 Absolute Basophils 0.0 Sodium 136.1 L Potassium 4.3 Chloride 96 L Carbon Dioxide 30 Anion Gap 10 BUN 20 Creatinine 0.79 Est GFR ( Amer) > 60 Est GFR (Non-Af Amer) > 60 Glucose 262 H Calcium 9.9 Magnesium 1.8 Total Bilirubin 1.0 0.8 AST 19 21 ALT 32 36 Alkaline Phosphatase 61 71 Total Protein 6.0 L 6.0 L Albumin 3.2 L 3.3 L Lipase 47.6 10/30/18 05:28 WBC 9.6 RBC 4.43 Hgb 13.3 L Hct 39.6 MCV 90 MCH 30.1 MCHC 33.6 RDW 13.4 Plt Count 270 Seg Neutrophils % Lymphocytes % Monocytes % Eosinophils % Basophils % Absolute Neutrophils Absolute Lymphocytes Absolute Monocytes Absolute Eosinophils Absolute Basophils Sodium Potassium Chloride Carbon Dioxide Anion Gap BUN Creatinine Est GFR ( Amer) Est GFR (Non-Af Amer) Glucose Calcium Magnesium Total Bilirubin AST ALT Alkaline Phosphatase Total Protein Albumin Lipase 10/26/18 10/27/18 10/27/18 19:52 01:49 08:21 Creatine Kinase CK-MB (CK-2) 0.64 0.74 Troponin I < 0.012 < 0.012 < 0.012 NT-Pro-B Natriuret Pep 10/27/18 10/27/18 10/28/18 08:21 15:00 05:28 Creatine Kinase < 20 L CK-MB (CK-2) 0.38 Troponin I < 0.012 NT-Pro-B Natriuret Pep 237 10/29/18 10/29/18 10/29/18 12:23 12:23 18:19 Creatine Kinase < 20 L < 20 L CK-MB (CK-2) 0.31 Troponin I < 0.012 NT-Pro-B Natriuret Pep 10/29/18 10/30/18 10/30/18 18:19 00:24 00:24 Creatine Kinase < 20 L CK-MB (CK-2) 0.33 0.26 Troponin I < 0.012 < 0.012 NT-Pro-B Natriuret Pep Impressions: Abdomen/Pelvis CT 10/26/18 00:00 IMPRESSION: No acute disease. Chest X-Ray 10/26/18 20:17 IMPRESSION: Cardiomegaly. No acute cardiopulmonary process copyright 2010 [email or web address]- All Rights Reserved Abdomen Ultrasound 10/29/18 00:00 IMPRESSION: Cholelithiasis and cholecystitis. Dilated common bile duct, suspect choledocholithiasis. Assessment & Plan - Diagnosis (1) Atrial fibrillation Is this a current diagnosis for this admission?: Yes Plan: 10/27/2018 patient was admitted with new onset atrial fibrillation with RVR. Initially on Cardizem drip, presently is on Coreg 6.5 mg p.o. twice daily. He is in sinus rhythm. Cardiology consult was requested echocardiogram requested. Patient is asymptomatic. Patient states he is going to follow-up with Dr. Calderon as an outpatient. He reluctantly agreed to see the corporate scheduler today. Patient is presently on Lovenox therapeutic dose. FAll precautions are requested.. 10/28/2018-patient was admitted with atrial fibrillation with RVR is present heart rate is 109. He is on Coreg 6.25 mg p.o. twice daily. He is on Plavix aspirin and Lovenox. He is refusing see the corporate scheduler team here in this hospital. He agreed to be on anticoagulation Eliquis. Put him on 2.5 mg of Eliquis twice daily and Cardizem 60 mg p.o. twice daily for rate control. Echocardiogram shows no valvular abnormalities. Requested the risk management involved in the case. Hopefully we may discharge him tomorrow. 10/29/2018-patient was admitted with new onset atrial fibrillation with RVR. Heart rate today is 97. He is on Cardizem 60 mg p.o. twice a day and also was started on Eliquis 2.5 mg p.o[address] twice daily. Dr. Farias went to talk to him to try to help him but pt refused to cooperate with Dr. Farias. Patient is insisting that Dr. Calderon is his corporate scheduler and he does not want to see anybody else. Plan is to continue the present management. 10/30/[id number]-rajk-old male admitted with new onset atrial fibrillation with RVR. He was started on Eliquis and Cardizem p.o. His heart rate is 78. He does not want any cardiology input from here. He wants to see Dr. Calderon as an outpat ient. In the meantime he found to have possible cholecystitis and as per the surgical recommendations Eliquis was on hold and started on heparin bridge for possible surgery tomorrow. Patient is n.p.o. today for MRCP. (2) Abdominal pain Is this a current diagnosis for this admission?: Yes Plan: Likely an anginal equivalent given onset with A. fib with RVR. Follow-up cardiac enzymes consider cardiac stress test. 10/27/2018-patient came in with abdominal pain CT abdomen pelvis was negative abdominal pain was resolved is most likely secondary to atrial fibrillation RVR causing the anginal symptoms. 10/28/2018 patient was admitted with abdominal pain CT abdominal pelvis was negative for acute pathology. Abdominal pain probably secondary to atrial fibrillation. On examination of the abdomen there is no bruit, patient is not complaining of any postprandial abdominal pain. 10/29/2018-patient came in with abdominal pain CT abdomen/pelvis negative for acute pathology he still complaining of right-sided upper abdominal pain ,going to do the urine gallbladder ultrasound. Patient is happy with recommendation and is willing to stay another day if necessary. She denies any problems associated with feeding like a postprandial pain. 10/30/[id number]-asuf-old male came with abdominal pain initial CT abdominal pelvis was negative for acute pathology yesterday is complaining of right upper quadrant pain ultrasound of gallbladder was done found to have a dilated bile duct and gallstones and cholecystitis. Patient is going for MRCP today. As per the surgical recommendations he is on IV heparin. Eliquis on hold since yeste rday. Patient may go for surgery tomorrow. (3) Chest pain Is this a current diagnosis for this admission?: Yes Plan: 10/27/2018 patient came in with chest pain probably secondary to. Cardiac enzymes are negative. no Complaints of chest pain this morning. 10/28/2018-patient came in with complaints of chest pain probably secondary to A. fib with RVR. Cardiac enzymes are negative. Echocardiogram was normal. No complaints of chest pains this morning. 10/29/2018-patient came in with chest pain most likely secondary to A. fib with rapid ventricular rate. Cardiac enzymes are negative. Echocardiogram was normal. No complaints of chest pains today. 10/30/2018-patient was admitted with chest pain chest pain most likely secondary to atrial fibrillation RVR. Heart rate is controlled patient is not complaining of chest pains anymore. Cardiac enzymes are negative. (4) Obstructive sleep apnea Is this a current diagnosis for this admission?: Yes Plan: 10/27/2018 patient history of obstructive sleep apnea is noncompliant with his BiPAP machine at home. BiPAP was requested during this hospital stay. 10/28/2018-patient has history of obstructive sleep apnea is noncompliant with BiPAP at home. Order for the BiPAP was placed here in this hospital. 10/29/2018-patient has history of obstructive sleep apnea uses BiPAP at home. He is noncompliant with BiPAP at home. Order was placed for BiPAP here in the hospital. 10/30/2018-patient has history of obstructive sleep apnea he is randomly using BiPAP at home. Order for BiPAP was placed here. (5) COPD (chronic obstructive pulmonary disease) Is this a current diagnosis for this admission?: Yes Plan: 10/27/2018-patient is given the history of COPD not on home oxygen he is presently on Xopenex, Atrovent, Flonase and supplemental oxygen. Pulse ox is 93% on 2 L. Chest examination bilateral entry was decreased but no wheezing no crepitations. 10/28/2018 patient has history of COPD not on home oxygen. He is on oxygen 2 L via nasal cannula here pulse ox is 96% on 2 L is on Xopenex, Atrovent, Flonase. 10/29/2018-patient has history of COPD not on home oxygen. His pulse ox is 98% on 2 L in the hospital. We are going to discontinue oxygen to see how is doing today. Plan is to discontinue flutter valve therapy and nebulizer treatments. On examination chest bilateral entry was good. 10/30/2018-patient has history of COPD not on home oxygen pulse ox on 2 L is 96% today patient is asymptomatic. Plan is to continue the present management. (6) Obesity (BMI 30-39.9) Is this a current diagnosis for this admission?: Yes Plan: 10/27/2018-patient's BMI is more than 35. Diet exercise weight loss and lifestyle modifications discussed. Dietary consult was requested. 10/28/2018-plan is to continue the present management. 08/28/2019-patient's BMI is close to 40 again diet exercise weight loss was advised. 10/30/2018-patient's BMI is more than 40. Dietary consult was requested. (7) Diabetes 1.5, managed as type 2 Is this a current diagnosis for this admission?: Yes Plan: 10/27/2018 patient is giving history of type 2 diabetes mellitus. Hemoglobin A1c is requested. pt going to be on insulin sliding scale before meals at bedtime with Humalog coverage. Dietary consult was requested is on diabetic diet. 10/28/2018 patient has history of type 2 diabetes mellitus latest blood sugar is 182. Hemoglobin A1c is 10.8. Patient is presently on insulin sliding scale before meals and at bedtime. And is on metformin thousand milligrams p.o. twice daily at home which was on hold. Plan is to start him on Lantus 10 units twice a day. 10/29/2018-patient has history of type 2 diabetes mellitus his hemoglobin A1c is 10.8. He is on metformin at home which was on hold here. Latest blood sugar is 245. Plan is to increase the Lantus to 15 units twice a day. Also on insulin sliding scale before meals and at bedtime. 10/30/2018-patient has history of diabetes mellitus type 2 hemoglobin A1c is 10.8 latest blood sugar is 272. Patient is presently on Lantus 15 units twice a day and also insulin sliding scale coverage before meals and at bedtime. (8) Coronary artery disease Is this a current diagnosis for this admission?: Yes Plan: 10/27/2018-patient is given the history of coronary artery disease status post stent placement complaint of chest pain at the time of admission cardiac enzymes are negative so far. His chest pain-free this morning. Chest pain probably secondary to A. fib with RVR which was resolved. 10/28/2018 patient has history of coronary artery disease status post stent placement. Chest pain during this admission probably secondary to A. fib with RVR. No complaints of chest pains today. 10/29/2018-patient has history of coronary artery disease status post stent placement. No complaints of chest pains today. 10/30/2018-patient has history of coronary artery disease with stent placement. No complaints of chest pain during the hospital stay. Patient is presently on heparin drip as a bridge for possible cholecystectomy. (9) Cholecystitis Is this a current diagnosis for this admission?: Yes Plan: 10/30/2018-renal ultrasound shows gallstones with cholecystitis. Patient is going for MRCP today. He is on a heparin drip as a bridge for possible cholecystectomy tomorrow. Patient is complaining of abdominal pain just a while ago I started him on morphine 1 mg IV every 4 as needed for pain. Also Percocets every 6 as needed. - Time Time Spent with patient: 25-34 minutes Medications reviewed and adjusted accordingly: Yes Anticipated discharge: Home
[2018-10-30] MEDS: CEFEPIME 2 GM/D5W RTU 2 GM/50 ML RTUPB IV SCH ×2 (14:55→22:50)
[2018-10-30] MEDS: ATORVASTATIN CALCIUM 80 MG TABLET PO SCH (21:20)
[2018-10-31] MEDS: HEPARIN SODIUM,PORCINE/D5W 25,000 UNIT/250 ML RTUINJ IV PRN (01:29)
[2018-10-31] MEDS: IPRATROPIUM BROMIDE 0.02% NEB 0.5 MG/2.5 ML AMPUL NEB SCH ×4 (02:22→20:38)
[2018-10-31] MEDS: LEVALBUTEROL HCL NEB 1.25 MG/3 ML AMPUL NEB SCH ×4 (02:22→20:38)
[2018-10-31] MEDS: LANSOPRAZOLE 30 MG TAB.RAP.DR PO SCH (05:43)
[2018-10-31 06:35] LABS: APPEARANCE,URINE SLIGHTLY-CLOUDY; BILIRUBIN,URINE NEGATIVE (NEGATIVE); COLOR,URINE AMBER; GLUCOSE, URINE >=500 mg/dL (NEGATIVE); KETONES,URINE NEGATIVE (NEGATIVE); LEUKOCYTE ESTERASE,URINE NEGATIVE (NEGATIVE); NITRITE,URINE NEGATIVE (NEGATIVE); PROTEIN,URINE NEGATIVE (NEGATIVE); URINE SPECIFIC GRAVITY 1.022
[2018-10-31] MEDS: INSULIN REG, HUMAN 100 UNIT/ML 3 ML VIAL (PYX) SUBCUT SCH ×4 (08:09→22:11)
[2018-10-31 08:19] LABS: ABSOLUTE BASOPHILS # (AUTO) 0.1 10^3/uL (0.0-0.2); ABSOLUTE EOSINOPHILS # (AUTO) 0.1 10^3/uL (0.0-0.6); ABSOLUTE MONOCYTES (AUTO) 1.3 10^3/uL (0.1-1.4); ABSOLUTE NEUT (AUTO) 10.1 10^3/uL (1.7-8.2); BASOPHILS % (AUTO) 0.7 % (0-2); EOSINOPHILS % (AUTO) 0.8 % (0-6); HEMATOCRIT 39.8 % (37.9-51.0); HEMOGLOBIN 13.5 g/dL (13.5-17.0); LYMPHOCYTES % (AUTO) 8.3 % (13-45); MEAN CORPUSCULAR HEMOGLOBIN 30.1 pg (27.0-33.4); MEAN CORPUSCULAR HGB CONC 33.8 g/dL (32.0-36.0); MEAN CORPUSCULAR VOLUME 89 fl (80-97); MONOCYTES % (AUTO) 10.5 % (3-13); PLATELET COUNT 279 10^3/uL (150-450); RED BLOOD COUNT 4.47 10^6/uL (4.35-5.55); RED CELL DISTRIBUTION WIDTH 13.7 % (11.5-14.0); SEGMENTED NEUTROPHILS % (AUTO) 79.7 % (42-78); TOTAL CELLS COUNTED % (AUTO) 100 %; WHITE BLOOD COUNT 12.6 10^3/uL (4.0-10.5)
[2018-10-31 08:24] LABS: INTERNATIONAL RATION (INR) 1.15; PROTHROMBIN TIME 15.3 SEC (11.4-15.4)
[2018-10-31 08:25] LABS: PARTIAL THROMBOPLASTIN TIME 35.4 SEC (23.5-35.8)
[2018-10-31 08:38] LABS: ALANINE AMINOTRANSFERASE 28 U/L (21-72); ALBUMIN 3.1 g/dL (3.5-5.0); ALKALINE PHOSPHATASE 68 U/L (38-126); ANION GAP 8 (5-19); ASPARTATE AMINO TRANSFERASE 12 U/L (17-59); BILIRUBIN,DIRECT 0.3 mg/dL (0.0-0.4); BILIRUBIN,TOTAL 0.6 mg/dL (0.2-1.3); BLOOD UREA NITROGEN 16 mg/dL (7-20); CALCIUM 9.7 mg/dL (8.4-10.2); CARBON DIOXIDE 32 mmol/L (22-30); CHLORIDE 96 mmol/L (98-107); GLUCOSE 180 mg/dL (75-110); POTASSIUM 4.2 mmol/L (3.6-5.0); SODIUM 136.4 mmol/L (137-145); TOTAL PROTEIN 5.9 g/dL (6.3-8.2)
[2018-10-31] MEDS ORDERED: ACETAMINOPHEN 1,000 MG/100 ML RTUPB IV ONE (08:52)
[2018-10-31] MEDS ORDERED: PROPOFOL INJ 200 MG/20 ML VIAL IV ONE (08:52)
[2018-10-31] MEDS ORDERED: FENTANYL CITRATE INJ/PF 250 MCG/5 ML AMPULE ONE (08:52)
[2018-10-31] MEDS ORDERED: MIDAZOLAM 2 MG/2 ML INJ ONE (08:52)
[2018-10-31] MEDS ORDERED: EPHEDRINE SULFATE INJ 50 MG/1 ML AMPULE ONE (08:55)
[2018-10-31] MEDS ORDERED: SUGAMMADEX SODIUM 200 MG/2 ML SDV IV ONE (08:55)
[2018-10-31] MEDS ORDERED: IPRATROPIUM/ALBUTEROL 0.5-2.5 MG/3 ML AMPUL NEB ONE (09:12)
[2018-10-31] MEDS ORDERED: BUPIVACAINE HCL 0.5%-EPI 1:200000 INJ/PF 30 ML VIAL ONE (09:20)
[2018-10-31] MEDS ORDERED: DILTIAZEM HCL INJ 25 MG/5 ML VIAL ONE (09:23)
[2018-10-31] MEDS ORDERED: PROMETHAZINE HCL INJ 25 MG/1 ML VIAL IV PRN (10:04)
[2018-10-31] MEDS ORDERED: FENTANYL CITRATE INJ/PF 100 MCG/2 ML AMPUL IV PRN ×3 (10:04)
[2018-10-31] MEDS ORDERED: MEPERIDINE HCL/PF INJ 25 MG/1 ML DISP.SYRIN IV PRN (10:04)
--- NOTE | 2018-10-31 10:55 | PDOC PROGRESS REPORT ---
Subjective Progress Note for:: 10/31/18 Subjective:: 77 year old male with a past medical history of oxygen dependent COPD, obstructive sleep apnea with noncompliance, coronary artery disease with stent remotely, diverticulitis with partial colectomy and diabetes. He presents with approximately a week of abdominal pain prompting him to seek evaluation in the emergency room where he was found to have A. fib with RVR. He started on IV Cardizem and full dose Lovenox then referred to the hospitalist for admission. Patient denies previous episode denies current abdominal pain. CT of the abdomen pelvis was unremarkable. Patient denies recent change in medications and otherwise is felt well. 10/27/[id number]-pmpi-old male with history of COPD obstructive sleep apnea coronary artery disease with history of stent placement to diabetic admitted for abdominal pain and new onset A. fib with RVR. CT abdomen and pelvis was negative for acute pathology. Chest x-ray was negative for fluid overload. She was initially on Cardizem drip and presently on a Coreg 6.25 mg p.o. twice daily. He is in sinus rhythm. No acute events in the last 24 hours. Patient is afebrile. 10/28/2018 77-year-old male with history of COPD, obstructive sleep apnea, coronary artery disease with stent placement, diabetic admitted with abdominal pain and new onset atrial fibrillation with rapid ventricular rate. CT abdomen pelvis was negative for acute pathology and his abdomen was soft nontender no complaints of the abdominal pain anymore. Patient was initially on Cardizem drip presently on Coreg 6.25 mg p.o. twice a day. His heart rate is 109 and is going in and out of atrial fibrillation. Latest EKG shows atrial fibrillation. Cardiogram was done no valvular pathology was noticed. Dr. Farias went to see the patient yesterday but patient refused to cooperate and told Dr. Farias that he is going to see Dr. Calderon as an outpatient. So Dr. Farias signed off from the patient care. This morning patient was sarcastic agitated, upset and I try to talk to him to him along with the nurse Eunice that that he needs see to the machine i coremaker here because of the new onset of atrial fibrillation and he may need anticoagulation but the patient is insisting he does not want to see the machine i coremaker he does not want any heart surgery but he agreed for anticoagulation with Eliquis. Requested the nurse Eunice to involve the risk management and the patient care. 10/29/2018 77-year-old male admitted for abdominal pain found to have A. fib with rapid ventricular rate, he refused a cardiology consult refused to talk to Dr. Farias. He agreed to be on Eliquis started on Eliquis yesterday and started on Cardizem 60 mg p.o. twice a day heart rate is better controlled at 97 today. Patient is still complaining of right-sided abdominal pain. Initial CT abdomen pelvis was negative for acute pathology but because of patient's complaining of persistent pain in the right upper quadrant planning to do the ultrasound of the gallbladder. No other complaints from the patient. No acute events in the last 24 hours. Patient is afebrile. 10/30/[id number]-pwjy-old male admitted for abdominal pain also found to have A. fib with rapid ventricular rate. He was started on Eliquis and Cardizem p.o. Yesterday he is complaining of right-sided abdominal pain, initial CT came back negative for acute pathology. Ultrasound of the gallbladder was done found to have a dilated bile duct and gallstones possible Flora cystitis. Surgical team saw the patient this morning they recommended MRCP. As per the surgical recommendations patient was started on heparin drip yesterday and Eliquis was discontinued. I spoke to Dr. Turner this morning he said if necessary they may take the patient to the surgery tomorrow. No acute events in the last 24 hours. Patient is afebrile. 10/31/2018-no acute events in the last 24 hours. Patient is afebrile. Patient came in with abdominal pain and A. fib with RVR. He is on heparin bridge for possible cholecystectomy. Patient went to the OR this morning. He was cleared for surgery by Dr. Farias. Reason For Visit: AFIB CHEST PAIN Physical Exam Vital Signs: Temp Pulse Resp BP Pulse Ox 97.7 F 85 22 H 126/72 H 90 L 10/31/18 08:57 10/31/18 08:57 10/31/18 08:57 10/31/18 07:42 10/31/18 08:57 Intake & Output 10/30/18 10/31/18 11/01/18 06:59 06:59 06:59 Intake Total 1175 810 0 Output Total 625 1115 Balance 550 -305 0 Weight 104.9 kg 106.7 kg General appearance: PRESENT: no acute distress Head exam: PRESENT: atraumatic Eye exam: PRESENT: PERRLA Mouth exam: PRESENT: dry mucosa Neck exam: ABSENT: carotid bruit, JVD, lymphadenopathy, thyromegaly Respiratory exam: PRESENT: decreased breath sounds Cardiovascular exam: PRESENT: irregular rhythm, systolic murmur, tachycardia GI/Abdominal exam: PRESENT: other - Obese abdomen with right upper quadrant tenderness on gentle palpation. Extremities exam: PRESENT: full ROM. ABSENT: calf tenderness, clubbing, pedal edema Neurological exam: PRESENT: alert, awake, oriented to person, oriented to place, oriented to time, oriented to situation, CN II-XII grossly intact. ABSENT: motor sensory deficit Psychiatric exam: PRESENT: appropriate affect, normal mood. ABSENT: homicidal ideation, suicidal ideation Results Laboratory Results: 10/31/18 08:00 10/31/18 08:00 10/31/18 10/31/18 10/31/18 05:40 08:00 08:00 WBC 12.6 H RBC 4.47 Hgb 13.5 Hct 39.8 MCV 89 MCH 30.1 MCHC 33.8 RDW 13.7 Plt Count 279 Seg Neutrophils % 79.7 H Lymphocytes % 8.3 L Monocytes % 10.5 Eosinophils % 0.8 Basophils % 0.7 Absolute Neutrophils 10.1 H Absolute Lymphocytes 1.0 Absolute Monocytes 1.3 Absolute Eosinophils 0.1 Absolute Basophils 0.1 Sodium 136.4 L Potassium 4.2 Chloride 96 L Carbon Dioxide 32 H Anion Gap 8 BUN 16 Creatinine 0.77 Est GFR ( Amer) > 60 Est GFR (Non-Af Amer) > 60 Glucose 180 H Calcium 9.7 Magnesium 1.8 Total Bilirubin 0.6 AST 12 L ALT 28 Alkaline Phosphatase 68 Total Protein 5.9 L Albumin 3.1 L Urine Color MARGARET Urine Appearance SLIGHTLY-CLOUDY Urine pH 5.0 Ur Specific [place] 1.022 Urine Protein NEGATIVE Urine Glucose (UA) >=500 H Urine Ketones NEGATIVE Urine Blood NEGATIVE Urine Nitrite NEGATIVE Ur Leukocyte Esterase NEGATIVE Urine WBC (Auto) 1 Urine RBC (Auto) 2 Blood Type Antibody Screen 10/31/18 09:08 WBC RBC Hgb Hct MCV MCH MCHC RDW Plt Count Seg Neutrophils % Lymphocytes % Monocytes % Eosinophils % Basophils % Absolute Neutrophils Absolute Lymphocytes Absolute Monocytes Absolute Eosinophils Absolute Basophils Sodium Potassium Chloride Carbon Dioxide Anion Gap BUN Creatinine Est GFR ( Amer) Est GFR (Non-Af Amer) Glucose Calcium Magnesium Total Bilirubin AST ALT Alkaline Phosphatase Total Protein Albumin Urine Color Urine Appearance Urine pH Ur Specific [place] Urine Protein Urine Glucose (UA) Urine Ketones Urine Blood Urine Nitrite Ur Leukocyte Esterase Urine WBC (Auto) Urine RBC (Auto) Blood Type A NEGATIVE Antibody Screen NEGATIVE 10/26/18 10/27/18 10/27/18 19:52 01:49 08:21 Creatine Kinase CK-MB (CK-2) 0.64 0.74 Troponin I < 0.012 < 0.012 < 0.012 NT-Pro-B Natriuret Pep 10/27/18 10/27/18 10/28/18 08:21 15:00 05:28 Creatine Kinase < 20 L CK-MB (CK-2) 0.38 Troponin I < 0.012 NT-Pro-B Natriuret Pep 237 10/29/18 10/29/18 10/29/18 12:23 12:23 18:19 Creatine Kinase < 20 L < 20 L CK-MB (CK-2) 0.31 Troponin I < 0.012 NT-Pro-B Natriuret Pep 10/29/18 10/30/18 10/30/18 18:19 00:24 00:24 Creatine Kinase < 20 L CK-MB (CK-2) 0.33 0.26 Troponin I < 0.012 < 0.012 NT-Pro-B Natriuret Pep Impressions: Abdomen/Pelvis CT 10/26/18 00:00 IMPRESSION: No acute disease. Chest X-Ray 10/26/18 20:17 IMPRESSION: Cardiomegaly. No acute cardiopulmonary process copyright 2010 [employer]- All Rights Reserved Abdomen Ultrasound 10/29/18 00:00 IMPRESSION: Cholelithiasis and cholecystitis. Dilated common bile duct, suspect choledocholithiasis. Assessment & Plan - Diagnosis (1) Atrial fibrillation Is this a current diagnosis for this admission?: Yes Plan: 10/27/2018 patient was admitted with new onset atrial fibrillation with RVR. Initially on Cardizem drip, presently is on Coreg 6.5 mg p.o. twice daily. He is in sinus rhythm. Cardiology consult was requested echocardiogram requested. Patient is asymptomatic. Patient states he is going to follow-up with Dr. Calderon as an outpatient. He reluctantly agreed to see the machine i coremaker today. Patient is presently on Lovenox therapeutic dose. FAll precautions are requested.. 10/28/2018-patient was admitted with atrial fibrillation with RVR is present heart rate is 109. He is on Coreg 6.25 mg p.o. twice daily. He is on Plavix aspirin and Lovenox. He is refusing see the machine i coremaker team here in this hospital. He agreed to be on anticoagulation Eliquis. Put him on 2.5 mg of Eliquis twice daily and Cardizem 60 mg p.o. twice daily for rate control. Echocardiogram shows no valvular abnormalities. Requested the risk management involved in the case. Hopefully we may discharge him tomorrow. 10/29/2018-patient was admitted with new onset atrial fibrillation with RVR. Heart rate today is 97. He is on Cardizem 60 mg p.o. twice a day and also was started on Eliquis 2.5 [address] p.o[address] twice daily. Dr. Farias went to talk to him to try to help him but pt refused to cooperate with Dr. Farias. Patient is insisting that Dr. Calderon is his machine i coremaker and he does not want to see anybody else. Plan is to continue the present management. 10/30/[id number]-wovy-old male admitted with new onset atrial fibrillation with RVR. He was started on Eliquis and Cardizem p.o. His heart rate is 78. He does not want any cardiology input from here. He wants to see Dr. Calderon as an outpatient. In the meantime he found to have possible cholecystitis and as per the surgical recommendations Eliquis was on hold and started on heparin bridge for possible surgery tomorrow. Patient is n.p.o. today for MRCP. 10/31/2018 77-year-old male admitted for A. fib with RVR. Is on heparin drip. Refused cardiology evaluation initially during the hospital stay. Found to have gallbladder disease and going for a surgery today. Plan is to discharge him once he is stable and advised him to follow-up with Dr. Calderon as an outpatient. (2) Abdominal pain Is this a current diagnosis for this admission?: Yes Plan: Likely an anginal equivalent given onset with A. fib with RVR. Follow-up cardiac enzymes consider cardiac stress test. 10/27/2018-patient came in with abdominal pain CT abdomen pelvis was negative abdominal pain was resolved is most likely secondary to atrial fibrillation RVR causing the anginal symptoms. 10/28/2018 patient was admitted with abdominal pain CT abdominal pelvis was negative for acute pathology. Abdominal pain probably secondary to atrial fibrillation. On examination of the abdomen there is no bruit, patient is not complaining of any postprandial abdominal pain. 10/29/2018-patient came in with abdominal pain CT abdomen/pelvis negative for acute pathology he still complaining of right-sided upper abdominal pain ,going to do the urine gallbladder ultrasound. Patient is happy with recommendation and is willing to stay another day if necessary. She denies any problems associated with feeding like a postprandial pain. 10/30/[id number]-pzqk-old male came with abdominal pain initial CT abdominal pelvis was negative for acute pathology yesterday is complaining of right upper quadrant pain ultrasound of gallbladder was done found to have a dilated bile duct and gallstones and cholecystitis. Patient is going for MRCP today. As per the surgical recommendations he is on IV heparin. Eliquis on hold since yesterday. Patient may go for surgery tomorrow. 10/31/2018-ultrasound of the gallbladder shows dilated bile duct along with gallstones and cholecystitis. Patient is on heparin drip for surgery. Plan is to hold heparin drip 6 hours prior to the surgery and patient is on the way to the OR today. (3) Chest pain Is this a current diagnosis for this admission?: Yes Plan: 10/27/2018 patient came in with chest pain probably secondary to. Cardiac enzymes are negative. no Complaints of chest pain this morning. 10/28/2018-patient came in with complaints of chest pain probably secondary to A. fib with RVR. Cardiac enzymes are negative. Echocardiogram was normal. No complaints of chest pains this morning. 10/29/2018-patient came in with chest pain most likely secondary to A. fib with rapid ventricular rate. Cardiac enzymes are negative. Echocardiogram was normal. No complaints of chest pains today. 10/30/2018-patient was admitted with chest pain chest pain most likely secondary to atrial fibrillation RVR. Heart rate is controlled patient is not complaining of chest pains anymore. Cardiac enzymes are negative. 10/31/2018 patient came into chest pains cardiac enzymes or EKGs are negative except for A. fib. Chest pain most likely secondary to atrial fibrillation. pt is chest pain-free today. (4) Obstructive sleep apnea Is this a current diagnosis for this admission?: Yes Plan: 10/27/2018 patient history of obstructive sleep apnea is noncompliant with his BiPAP machine at home. BiPAP was requested during this hospital stay. 10/28/2018-patient has history of obstructive sleep apnea is noncompliant with BiPAP at home. Order for the BiPAP was placed here in this hospital. 10/29/2018-patient has history of obstructive sleep apnea uses BiPAP at home. He is noncompliant with BiPAP at home. Order was placed for BiPAP here in the hospital. 10/30/2018-patient has history of obstructive sleep apnea he is randomly using BiPAP at home. Order for BiPAP was placed here. 10/31/2018-patient has obstructive sleep apnea supposed to be on BiPAP at home. He is noncompliant with the BiPAP. Presently he is using BiPAP at night during this hospital stay. (5) COPD (chronic obstructive pulmonary disease) Is this a current diagnosis for this admission?: Yes Plan: 10/27/2018-patient is given the history of COPD not on home oxygen he is presently on Xopenex, Atrovent, Flonase and supplemental oxygen. Pulse ox is 93% on 2 L. Chest examination bilateral entry was decreased but no wheezing no crepitations. 10/28/2018 patient has history of COPD not on home oxygen. He is on oxygen 2 L via nasal cannula here pulse ox is 96% on 2 L is on Xopenex, Atrovent, Flonase. 10/29/2018-patient has history of COPD not on home oxygen. His pulse ox is 98% on 2 L in the hospital. We are going to discontinue oxygen to see how is doing today. Plan is to discontinue flutter valve therapy and nebulizer treatments. On examination chest bilateral entry was good. 10/30/2018-patient has history of COPD not on home oxygen pulse ox on 2 L is 96% today patient is asymptomatic. Plan is to continue the present management. 10/31/2018-patient has history of COPD, not on home oxygen pulse ox on 2 L today is 96%. (6) Obesity (BMI 30-39.9) Is this a current diagnosis for this admission?: Yes (7) Diabetes 1.5, managed as type 2 Is this a current diagnosis for this admission?: Yes Plan: 10/27/2018 patient is giving history of type 2 diabetes mellitus. Hemoglobin A1c is requested. pt going to be on insulin sliding scale before meals at bedtime with Humalog coverage. Dietary consult was requested is on diabetic diet. 10/28/2018 patient has history of type 2 diabetes mellitus latest blood sugar is 182. Hemoglobin A1c is 10.8. Patient is presently on insulin sliding scale before meals and at bedtime. And is on metformin thousand milligrams p.o. twice daily at home which was on hold. Plan is to start him on Lantus 10 units twice a day. 10/29/2018-patient has history of type 2 diabetes mellitus his hemoglobin A1c is 10.8. He is on metformin at home which was on hold here. Latest blood sugar is 245. Plan is to increase the Lantus to 15 units twice a day. Also on insulin sliding scale before meals and at bedtime. 10/30/2018-patient has history of diabetes mellitus type 2 hemoglobin A1c is 10.8 latest blood sugar is 272. Patient is presently on Lantus 15 units twice a day and also insulin sliding scale coverage before meals and at bedtime. 10/31/2018 patient's hemoglobin A1c is 10.8 today is 118. He is on Lantus 15 units twice a day and insulin sliding scale coverage before meals and at bedtime. Plan is to continue the present management. (8) Coronary artery disease Is this a current diagnosis for this admission?: Yes (9) Cholecystitis Is this a current diagnosis for this admission?: Yes Plan: 10/30/2018 gallbladder ultrasound shows gallstones with cholecystitis. Patient is going for MRCP today. He is on a heparin drip as a bridge for possible cholecystectomy tomorrow. Patient is complaining of abdominal pain just a while ago I started him on morphine 1 mg IV every 4 as needed for pain. Also Percocets every 6 as needed. 08/30/2019 ultrasound gallbladder shows gallstones along with cholecystitis and dilated bile duct. Patient is in the OR for cholecystectomy. Yesterday surgical team planned for MRCP but he has few metal objects in the abdomen secondary to previous surgery involving the colon resection. So MRCP was canceled. - Time Time Spent with patient: 15-24 minutes Medications reviewed and adjusted accordingly: Yes Anticipated discharge: Home
[2018-10-31] MEDS: RINGERS SOLUTION,LACTATED 1,000 ML IV PRN ×2 (14:50→19:57)
[2018-10-31] MEDS: CEFEPIME 2 GM/D5W RTU 2 GM/50 ML RTUPB IV SCH ×2 (14:50→22:13)
[2018-10-31] MEDS: CARVEDILOL 6.25 MG TABLET PO SCH ×2 (14:51→17:49)
[2018-10-31] MEDS: INSULIN GLARGINE,HUM.REC.ANLOG 1,000 UNIT/10 ML UNIT SUBCUT SCH ×2 (14:51→22:10)
[2018-10-31] MEDS: DILTIAZEM HCL 60 MG TABLET PO SCH ×2 (14:51→22:08)
[2018-10-31] MEDS: DOCUSATE SODIUM 100 MG CAPSULE PO SCH ×3 (14:51→22:09)
[2018-10-31] MEDS: FLUTICASONE NASAL SPRAY 50 MCG/SPRY 120 SPRAY/16 GM NASL SCH ×2 (14:51→22:08)
[2018-10-31] MEDS: RANOLAZINE 500 MG TAB.SR.12H PO SCH ×2 (14:52→22:08)
[2018-10-31] MEDS: EZETIMIBE 10 MG TABLET PO SCH (14:52)
[2018-10-31] MEDS ORDERED: SUCCINYLCHOLINE CHLORIDE INJ 200 MG/10 ML VIAL ONE (15:13)
[2018-10-31] MEDS ORDERED: ONDANSETRON HCL INJ/PF 4 MG/2 ML SDV ONE (15:13)
[2018-10-31] MEDS ORDERED: ROCURONIUM BROMIDE INJ 50 MG/5 ML VIAL IV ONE (15:13)
[2018-10-31] MEDS ORDERED: DEXAMETHASONE SOD PHOSPHATE INJ 4 MG/1 ML VIAL ONE (15:13)
[2018-10-31] MEDS ORDERED: LIDOCAINE 2% INJ-PF (20 MG/ML) 2 ML AMPUL ONE (15:13)
[2018-10-31] MEDS: OXYCODONE-ACETAMINOPHEN 5-325 MG TABLET PO PRN ×2 (17:52→22:09)
[2018-10-31] MEDS: ATORVASTATIN CALCIUM 80 MG TABLET PO SCH (22:08)
[2018-10-31] MEDS ORDERED: HEPARIN SODIUM,PORCINE/D5W 25,000 UNIT/250 ML RTUINJ IV ONE (23:48)
[2018-11-01] MEDS: HEPARIN SODIUM,PORCINE/D5W 25,000 UNIT/250 ML RTUINJ IV PRN ×2 (00:07→15:09)
[2018-11-01] MEDS: IPRATROPIUM BROMIDE 0.02% NEB 0.5 MG/2.5 ML AMPUL NEB SCH ×4 (01:29→20:57)
[2018-11-01] MEDS: LEVALBUTEROL HCL NEB 1.25 MG/3 ML AMPUL NEB SCH ×4 (01:30→20:57)
[2018-11-01] MEDS: OXYCODONE-ACETAMINOPHEN 5-325 MG TABLET PO PRN ×3 (03:52→18:56)
[2018-11-01] MEDS: RINGERS SOLUTION,LACTATED 1,000 ML IV PRN ×2 (05:29→15:08)
[2018-11-01] MEDS: LANSOPRAZOLE 30 MG TAB.RAP.DR PO SCH (05:33)
[2018-11-01 07:12] LABS: ABSOLUTE BASOPHILS # (AUTO) 0.1 10^3/uL (0.0-0.2); ABSOLUTE MONOCYTES (AUTO) 1.4 10^3/uL (0.1-1.4); ABSOLUTE NEUT (AUTO) 12.5 10^3/uL (1.7-8.2); BASOPHILS % (AUTO) 0.4 % (0-2); HEMATOCRIT 37.4 % (37.9-51.0); HEMOGLOBIN 12.7 g/dL (13.5-17.0); LYMPHOCYTES % (AUTO) 6.6 % (13-45); MEAN CORPUSCULAR HEMOGLOBIN 30.7 pg (27.0-33.4); MEAN CORPUSCULAR VOLUME 90 fl (80-97); MONOCYTES % (AUTO) 9.2 % (3-13); PLATELET COUNT 258 10^3/uL (150-450); RED BLOOD COUNT 4.13 10^6/uL (4.35-5.55); RED CELL DISTRIBUTION WIDTH 13.7 % (11.5-14.0); SEGMENTED NEUTROPHILS % (AUTO) 83.8 % (42-78); TOTAL CELLS COUNTED % (AUTO) 100 %; WHITE BLOOD COUNT 14.9 10^3/uL (4.0-10.5)
[2018-11-01 07:34] LABS: ALANINE AMINOTRANSFERASE 38 U/L (21-72); ALBUMIN 2.8 g/dL (3.5-5.0); ALKALINE PHOSPHATASE 62 U/L (38-126); ANION GAP 7 (5-19); ASPARTATE AMINO TRANSFERASE 20 U/L (17-59); BILIRUBIN,DIRECT 0.3 mg/dL (0.0-0.4); BILIRUBIN,TOTAL 0.4 mg/dL (0.2-1.3); BLOOD UREA NITROGEN 16 mg/dL (7-20); CALCIUM 9.5 mg/dL (8.4-10.2); CARBON DIOXIDE 32 mmol/L (22-30); CHLORIDE 98 mmol/L (98-107); GLUCOSE 226 mg/dL (75-110); LIPASE 39.4 U/L (23-300); POTASSIUM 4.7 mmol/L (3.6-5.0); SODIUM 136.7 mmol/L (137-145); TOTAL PROTEIN 5.4 g/dL (6.3-8.2)
[2018-11-01] MEDS: INSULIN REG, HUMAN 100 UNIT/ML 3 ML VIAL (PYX) SUBCUT SCH ×4 (07:58→22:19)
--- NOTE | 2018-11-01 09:05 | OPERATIVE REPORT E ---
Operative Report NAME: BABAR WILLARD : 1940 AGE: 77Y DATE OF SURGERY: 10/31/2018 ROOM: 322 PREOPERATIVE DIAGNOSIS: ACUTE ON CHRONIC CHOLECYSTITIS AND CHOLELITHIASIS. POSTOPERATIVE DIAGNOSIS: ACUTE ON CHRONIC CHOLECYSTITIS AND CHOLELITHIASIS. OPERATION: Laparoscopic cholecystectomy. SURGEON: CAYETANO STANFORD M.D. ANESTHESIA: General. INDICATIONS: This is a 77-year-old male with right upper quadrant pains for the past few days associated with nausea. He had an ultrasound which showed gallstones with acute cholecystitis and dilated common bile duct. Patient also in atrial fibrillation on heparin drip. He was seen by sheet metal production worker last night and cleared for surgery. He continued to have pain and tenderness in the right upper quadrant; therefore, needed his gallbladder removed and possibly do a cholangiogram since he was not a candidate for MRI with around the area of the liver. The heparin drip was stopped around 4:00 a.m. this morning and a repeat PTT was normal. PROCEDURE: The patient was placed in the supine position after adequate general anesthesia. The abdomen was then prepped and draped in the usual sterile fashion. Appropriate timeout was then called. Next, patient had a previous left median scar from a previous colon resection for diverticulitis in 1971. The midline appeared to be free of any incision. A midline incision made just about the umbilicus. The fascia was identified and sutured with 0 Vicryl on each side and divided between the sutures. The abdominal cavity was entered with Mel clamp. A digital blunt dissection just below the fascia was done. No significant adhesions noted. There was some towards the old incision. Next, Tyson trocar was then inserted through the fascia into the abdominal cavity and CO2 insufflated to a pressure of 15 mmHg. Next, a 12 mm trocar inserted in the subxiphoid area as well as two 5 mm in the right upper quadrant trocars were placed under direct vision. The area of the gallbladder was then inspected and there was a thick layer of omentum plastered around the gallbladder. This omentum was then bluntly and with the use of Harmonic ernst dissected off the gallbladder. This omentum adhesion carried all the way down towards the cystic duct area. The gallbladder itself, however, appears to be quite markedly distended and unable to be grasped by grasper. A long needle was then used to aspirate the bile and aspirated at least 80 mL of greenish bile. This allowed us to grasp the thick gallbladder wall about the liver site. The gallbladder was pushed cephalad and the gallbladder grasped bluntly and with the use of Harmonic ernst dissected adhesions and omentum from the gallbladder. The gallbladder was noted to be quite enlarged and going towards the cystic duct area. The cystic duct noted to be slightly thickened and enlarged. With the use of another retractor placed through another 5 mm trocar in the mid abdomen with better visualization of the cystic duct area was done. Appears to be a very short area of cystic duct and the duct was then clipped, at least two large clips. The gallbladder was then divided just about the distal clip. The gallbladder opening was then grasped to prevent spillage. The cystic artery was dissected close by and this was clipped with a hemoclip proximally and divided with the use of Harmonic ernst. The gallbladder was then dissected off the liver bed initially with the use of Harmonic ernst from the cystic duct area and all the way up to the top of the liver. Most of the gallbladder peeled off from the liver bed causing some bleeding and the top part quite plane developed and the gallbladder was then cauterized and divided towards the top part with the use of Harmonic ernst. There was an attempt initially to do dissection of the gallbladder but I was not able to develop a plane on the top part and therefore we continued to dissect initially from the cystic duct area. The gallbladder was then completely removed and placed in an Endo Bag. The gallbladder was then pulled out through the umbilical port with blunt dilatation of the fascia which allowed to pull out the gallbladder completely. The gallbladder noted to be enlarged with a lot of moderate sized stones roughly about 6 to 7 mm in diameter. It was quite impossible to do a cholangiogram on the patient and therefore cholangiogram was not done. Next, after removal of the gallbladder, the trocars were put back and the liver bed inspected and irrigated. The cystic duct area was inspected and the clips appeared to be coming off. Because of this, 2 ligatures of loop PDS were placed around the cystic duct area and the clips partially came off and was then completely pulled out. The liver bed was inspected and there were some areas of bleeding of the liver bed that were controlled with spatula cautery. There was a small amount of oozing noted from the liver bed which was further controlled with Surgicel. Two Surgicels were placed on the liver bed. Next, a #15 gauge Mamadou drain was then passed through the lower most trocar of the right upper quadrant and laid on the liver bed. It was then anchored to the skin with 2-0 silk. Next, all the trocars were removed and CO2 allowed to come out of the trocar sites. No evidence of bleeding on the trocar sites. Next, the fascial defect of the infraumbilical area was then closed with 2 [id number] sutures and 2 stay sutures on the mid part tied together with 0 Vicryl stitch. The fascia was then instilled with Marcaine as well as the other incisions. All the skin incisions were then closed with running subcuticular closing using 4-0 Vicryl and dye. Sterile dressings placed over the operative sites. Needle, instrument, sponge count were all correct. Estimated blood loss about 300 mL. The patient then brought to recovery in satisfactory condition. DICTATING PHYSICIAN: CAYETANO STANFORD M.D. [id number] PHY#: [id number] ID: [id number] JOB#: [id number] ACCT: [id number] cc:CAYETANO STANFORD M.D. >
[2018-11-01] MEDS: FLUTICASONE NASAL SPRAY 50 MCG/SPRY 120 SPRAY/16 GM NASL SCH ×2 (09:39→22:20)
[2018-11-01] MEDS: DILTIAZEM HCL 60 MG TABLET PO SCH (09:39)
[2018-11-01] MEDS: CEFEPIME 2 GM/D5W RTU 2 GM/50 ML RTUPB IV SCH ×2 (09:39→22:18)
[2018-11-01] MEDS: CARVEDILOL 6.25 MG TABLET PO SCH (09:39)
[2018-11-01] MEDS: RANOLAZINE 500 MG TAB.SR.12H PO SCH ×2 (09:39→22:20)
[2018-11-01] MEDS: DOCUSATE SODIUM 100 MG CAPSULE PO SCH ×2 (09:39→17:35)
[2018-11-01] MEDS: INSULIN GLARGINE,HUM.REC.ANLOG 1,000 UNIT/10 ML UNIT SUBCUT SCH ×2 (09:41→22:19)
[2018-11-01] MEDS: EZETIMIBE 10 MG TABLET PO SCH (09:41)
--- NOTE | 2018-11-01 09:59 | PDOC PROGRESS REPORT ---
Subjective Progress Note for:: 11/01/18 Subjective:: 77 year old male with a past medical history of oxygen dependent COPD, obstructive sleep apnea with noncompliance, coronary artery disease with stent remotely, diverticulitis with partial colectomy and diabetes. He presents with approximately a week of abdominal pain prompting him to seek evaluation in the emergency room where he was found to have A. fib with RVR. He started on IV Cardizem and full dose Lovenox then referred to the hospitalist for admission. Patient denies previous episode denies current abdominal pain. CT of the abdomen pelvis was unremarkable. Patient denies recent change in medications and otherwise is felt well. 10/27/[id number]-[id number]-old male with history of COPD obstructive sleep apnea coronary artery disease with history of stent placement to diabetic admitted for abdominal pain and new onset A. fib with RVR. CT abdomen and pelvis was negative for acute pathology. Chest x-ray was negative for fluid overload. She was initially on Cardizem drip and presently on a Coreg 6.25 mg p.o. twice daily. He is in sinus rhythm. No acute events in the last 24 hours. Patient is afebrile. 10/28/2018 77-year-old male with history of COPD, obstructive sleep apnea, coronary artery disease with stent placement, diabetic admitted with abdominal pain and new onset atrial fibrillation with rapid ventricular rate. CT abdomen pelvis was negative for acute pathology and his abdomen was soft nontender no complaints of the abdominal pain anymore. Patient was initially on Cardizem drip presently on Coreg 6.25 mg p.o. twice a day. His heart rate is 109 and is going in and out of atrial fibrillation. Latest EKG shows atrial fibrillation. Cardiogram was done no valvular pathology was noticed. Dr. Farias went to see the patient yesterday but patient refused to cooperate and told Dr. Farias that he is going to see Dr. Calderon as an outpatient. So Dr. Farias signed off from the patient care. This morning patient was sarcastic agitated, upset and I try to talk to him to him along with the nurse Eunice that that he needs see to the auto driver here because of the new onset of atrial fibrillation and he may need anticoagulation but the patient is insisting he does not want to see the auto driver he does not want any heart surgery but he agreed for anticoagulation with Eliquis. Requested the nurse Eunice to involve the risk management and the patient care. 10/29/2018 77-year-old male admitted for abdominal pain found to have A. fib with rapid ventricular rate, he refused a cardiology consult refused to talk to Dr. Farias. He agreed to be on Eliquis started on Eliquis yesterday and started on Cardizem 60 mg p.o. twice a day heart rate is better controlled at 97 today. Patient is still complaining of right-sided abdominal pain. Initial CT abdomen pelvis was negative for acute pathology but because of patient's complaining of persistent pain in the right upper quadrant planning to do the ultrasound of the gallbladder. No other complaints from the patient. No acute events in the last 24 hours. Patient is afebrile. 10/30/[id number]-cekd-old male admitted for abdominal pain also found to have A. fib with rapid ventricular rate. He was started on Eliquis and Cardizem p.o. Yesterday he is complaining of right-sided abdominal pain, initial CT came back negative for acute pathology. Ultrasound of the gallbladder was done found to have a dilated bile duct and gallstones possible Flora cystitis. Surgical team saw the patient this morning they recommended MRCP. As per the surgical recommendations patient was started on heparin drip yesterday and Eliquis was discontinued. I spoke to Dr. Turner this morning he said if necessary they may take the patient to the surgery tomorrow. No acute events in the last 24 hours. Patient is afebrile. 10/31/2018-no acute events in the last 24 hours. Patient is afebrile. Patient came in with abdominal pain and A. fib with RVR. He is on heparin bridge for possible cholecystectomy. Patient went to the OR this morning. He was cleared for surgery by Dr. Farias. 11/01/2018-patient had gallbladder surgery yesterday. I spoke to Dr. Turner we discussed the plan of care LFTs are normal lipase was normal patient is asymptomatic with expiratory for occasional pain he does not have any bowel movement is not passing any gas yet Dr. Turner recommended HIDA scan this evening. I placed the order for HIDA scan the drain is present draining around 30 cc of bloodstained fluid per shift. Patient does not have any complaints. Patient is on a heparin drip. Reason For Visit: AFIB CHEST PAIN Physical Exam Vital Signs: Temp Pulse Resp BP Pulse Ox 97.3 F 96 18 128/77 H 93 11/01/18 08:04 11/01/18 08:04 11/01/18 08:04 11/01/18 08:04 11/01/18 08:04 Pulse Oximeter Continuous Start: 10/31/18 13:48 Freq: RTQ4 Status: Active Protocol: Document 11/01/18 04:19 CMI (Rec: 11/01/18 04:19 CMI [id number]) Pulse Oximetry Assessment Oxygen Saturation (92-100) 90 Oxygen Flow Rate (L/min) 2 Oxygen Delivery Method Nasal Cannula Fraction of Inspired Oxygen (FIO2) 28 Equipment Usage Equipment in Use Continuous SpO2 Machine # 11 Intake & Output 10/31/18 11/01/18 11/02/18 06:59 06:59 06:59 Intake Total 810 7524 Output Total 1115 4653 Balance -305 2871 Weight 106.7 kg 112.6 kg General appearance: PRESENT: no acute distress Head exam: PRESENT: atraumatic Eye exam: PRESENT: PERRLA Mouth exam: PRESENT: moist Teeth exam: PRESENT: poor dentation Neck exam: ABSENT: carotid bruit, JVD, lymphadenopathy, thyromegaly Respiratory exam: PRESENT: decreased breath sounds Cardiovascular exam: PRESENT: irregular rhythm, systolic murmur GI/Abdominal exam: PRESENT: normal bowel sounds, soft. ABSENT: distended, guarding, mass, organolmegaly, rebound, tenderness Extremities exam: PRESENT: full ROM. ABSENT: calf tenderness, clubbing, pedal edema Neurological exam: PRESENT: alert, awake, oriented to person, oriented to place, oriented to time, oriented to situation, CN II-XII grossly intact. ABSENT: motor sensory deficit Psychiatric exam: PRESENT: appropriate affect, normal mood. ABSENT: homicidal ideation, suicidal ideation Results Laboratory Results: 11/01/18 06:07 11/01/18 06:07 10/31/18 11/01/18 11/01/18 09:08 06:07 06:07 WBC 14.9 H RBC 4.13 L Hgb 12.7 L Hct 37.4 L MCV 90 MCH 30.7 MCHC 34.0 RDW 13.7 Plt Count 258 Seg Neutrophils % 83.8 H Lymphocytes % 6.6 L Monocytes % 9.2 Eosinophils % 0.0 Basophils % 0.4 Absolute Neutrophils 12.5 H Absolute Lymphocytes 1.0 Absolute Monocytes 1.4 Absolute Eosinophils 0.0 Absolute Basophils 0.1 Sodium 136.7 L Potassium 4.7 Chloride 98 Carbon Dioxide 32 H Anion Gap 7 BUN 16 Creatinine 0.70 Est GFR ( Amer) > 60 Est GFR (Non-Af Amer) > 60 Glucose 226 H Calcium 9.5 Total Bilirubin 0.4 AST 20 ALT 38 Alkaline Phosphatase 62 Total Protein 5.4 L Albumin 2.8 L Lipase 39.4 Blood Type A NEGATIVE Antibody Screen NEGATIVE 10/26/18 10/27/18 10/27/18 19:52 01:49 08:21 Creatine Kinase CK-MB (CK-2) 0.64 0.74 Troponin I < 0.012 < 0.012 < 0.012 NT-Pro-B Natriuret Pep 10/27/18 10/27/18 10/28/18 08:21 15:00 05:28 Creatine Kinase < 20 L CK-MB (CK-2) 0.38 Troponin I < 0.012 NT-Pro-B Natriuret Pep 237 10/29/18 10/29/18 10/29/18 12:23 12:23 18:19 Creatine Kinase < 20 L < 20 L CK-MB (CK-2) 0.31 Troponin I < 0.012 NT-Pro-B Natriuret Pep 10/29/18 10/30/18 10/30/18 18:19 00:24 00:24 Creatine Kinase < 20 L CK-MB (CK-2) 0.33 0.26 Troponin I < 0.012 < 0.012 NT-Pro-B Natriuret Pep Impressions: Abdomen/Pelvis CT 10/26/18 00:00 IMPRESSION: No acute disease. Chest X-Ray 10/26/18 20:17 IMPRESSION: Cardiomegaly. No acute cardiopulmonary process copyright 2011 [facility] [employer]- All Rights Reserved Abdomen Ultrasound 10/29/18 00:00 IMPRESSION: Cholelithiasis and cholecystitis. Dilated common bile duct, suspect choledocholithiasis. Assessment & Plan - Diagnosis (1) Atrial fibrillation Is this a current diagnosis for this admission?: Yes Plan: 10/27/2018 patient was admitted with new onset atrial fibrillation with RVR. Initially on Cardizem drip, presently is on Coreg 6.5 mg p.o. twice daily. He is in sinus rhythm. Cardiology consult was requested echocardiogram requested. Patient is asymptomatic. Patient states he is going to follow-up with Dr. Calderon as an outpatient. He reluctantly agreed to see the auto driver today. Patient is presently on Lovenox therapeutic dose. FAll precautions are requested.. 10/28/2018-patient was admitted with atrial fibrillation with RVR is present heart rate is 109. He is on Coreg 6.25 mg p.o. twice daily. He is on Plavix aspirin and Lovenox. He is refusing see the auto driver team here in this hospital. He agreed to be on anticoagulation Eliquis. Put him on 2.5 mg of Eliquis twice daily and Cardizem 60 mg p.o. twice daily for rate control. Echocardiogram shows no valvular abnormalities. Requested the risk management involved in the case. Hopefully we may discharge him tomorrow. 10/29/2018-patient was admitted with new onset atrial fibrillation with RVR. Heart rate today is 97. He is on Cardizem 60 mg p.o. twice a day and also was started on Eliquis 2.5 mg p.o[address] twice daily. Dr. Farias went to talk to him to try to help him but pt refused to cooperate with Dr. Farias. Patient is insisting that Dr. Calderon is his auto driver and he does not want to see anybody else. Plan is to continue the present management. 10/30/[id number]-yspx-old male admitted with new onset atrial fibrillation with RVR. He was started on Eliquis and Cardizem p.o. His heart rate is 78. He does not want any cardiology input from here. He wants to see Dr. Calderon as an outpatient. In the meantime he found to have possible cholecystitis and as per the surgical recommendations Eliquis was on hold and started on heparin bridge for possible surgery tomorrow. Patient is n.p.o. today for MRCP. 10/31/2018 77-year-old male admitted for A. fib with RVR. Is on heparin drip. Refused cardiology evaluation initially during the hospital stay. Found to have gallbladder disease and going for a surgery today. Plan is to discharge him once he is stable and advised him to follow-up with Dr. Calderon as an outpatient. 11/01/2018-patient was admitted with A. fib with RVR. He is on heparin drip now. He still in atrial fib but rate controlled. Once the drain is removed he may go back on Eliquis. He is going for HIDA scan today. Patient is on diltiazem 60 mg p.o. every 12 hours and Coreg 6.5 mg p.o. twice a day. Heart rate just a while ago is 90. Plan is to continue the present management. (2) Abdominal pain Is this a current diagnosis for this admission?: Yes Plan: Likely an anginal equivalent given onset with A. fib with RVR. Follow-up cardiac enzymes consider cardiac stress test. 10/27/2018-patient came in with abdominal pain CT abdomen pelvis was negative abdominal pain was resolved is most likely secondary to atrial fibrillation RVR causing the anginal symptoms. 10/28/2018 patient was admitted with abdominal pain CT abdominal pelvis was negative for acute pathology. Abdominal pain probably secondary to atrial fibrillation. On examination of the abdomen there is no bruit, patient is not complaining of any postprandial abdominal pain. 10/29/2018-patient came in with abdominal pain CT abdomen/pelvis negative for acute pathology he still complaining of right-sided upper abdominal pain ,going to do the urine gallbladder ultrasound. Patient is happy with recommendation and is willing to stay another day if necessary. She denies any problems associated with feeding like a postprandial pain. 10/30/[id number]-ftrs-old male came with abdominal pain initial CT abdominal pelvis was negative for acute pathology yesterday is complaining of right upper quadrant pain ultrasound of gallbladder was done found to have a dilated bile duct and gallstones and cholecystitis. Patient is going for MRCP today. As per the surgical recommendations he is on IV heparin. Eliquis on hold since yesterday. Patient may go for surgery tomorrow. 10/31/2018-ultrasound of the gallbladder shows dilated bile duct along with gallstones and cholecystitis. Patient is on heparin drip for surgery. Plan is to hold heparin drip 6 hours prior to the surgery and patient is on the way to the OR today. 11/01/2018-patient came in with abdominal pain initial CAT scan was negative for acute pathology indicates cholelithiasis status post gallbladder surgery was done. Follow-up LFTs and lipase were negative. As per Dr. Turner's recommendation we going to do the HIDA scan this evening. Patient has a surgical drain, draining 30 cc of bloodstained fluid per shift. Not passing gas yet. bowel sounds are present (3) Chest pain Is this a current diagnosis for this admission?: Yes Plan: 10/27/2018 patient came in with chest pain probably secondary to. Cardiac enzymes are negative. no Complaints of chest pain this morning. 10/28/2018-patient came in with complaints of chest pain probably secondary to A. fib with RVR. Cardiac enzymes are negative. Echocardiogram was normal. No complaints of chest pains this morning. 10/29/2018-patient came in with chest pain most likely secondary to A. fib with rapid ventricular rate. Cardiac enzymes are negative. Echocardiogram was normal. No complaints of chest pains today. 10/30/2018-patient was admitted with chest pain chest pain most likely secondary to atrial fibrillation RVR. Heart rate is controlled patient is not complaining of chest pains anymore. Cardiac enzymes are negative. 10/31/2018 patient came into chest pains cardiac enzymes or EKGs are negative except for A. fib. Chest pain most likely secondary to atrial fibrillation. pt is chest pain-free today. 11/01/2018 patient initially came in with chest pains cardiac enzymes are negative EKG shows atrial fibrillation RVR chest pain most likely secondary to atrial fibrillation. (4) Obstructive sleep apnea Is this a current diagnosis for this admission?: No Plan: 10/27/2018 patient history of obstructive sleep apnea is noncompliant with his BiPAP machine at home. BiPAP was requested during this hospital stay. 10/28/2018-patient has history of obstructive sleep apnea is noncompliant with BiPAP at home. Order for the BiPAP was placed here in this hospital. 10/29/2018-patient has history of obstructive sleep apnea uses BiPAP at home. He is noncompliant with BiPAP at home. Order was placed for BiPAP here in the hospital. 10/30/2018-patient has history of obstructive sleep apnea he is randomly using BiPAP at home. Order for BiPAP was placed here. 10/31/2018-patient has obstructive sleep apnea supposed to be on BiPAP at home. He is noncompliant with the BiPAP. Presently he is using BiPAP at night during this hospital stay. 11/01/2018 patient has history of obstructive sleep apnea on BiPAP at home. BiPAP orders were placed during this hospital stay. (5) COPD (chronic obstructive pulmonary disease) Is this a current diagnosis for this admission?: No Plan: 10/27/2018-patient is given the history of COPD not on home oxygen he is presently on Xopenex, Atrovent, Flonase and supplemental oxygen. Pulse ox is 93% on 2 L. Chest examination bilateral entry was decreased but no wheezing no crepitations. 10/28/2018 patient has history of COPD not on home oxygen. He is on oxygen 2 L via nasal cannula here pulse ox is 96% on 2 L is on Xopenex, Atrovent, Flonase. 10/29/2018-patient has history of COPD not on home oxygen. His pulse ox is 98% on 2 L in the hospital. We are going to discontinue oxygen to see how is doing today. Plan is to discontinue flutter valve therapy and nebulizer treatments. On examination chest bilateral entry was good. 10/30/2018-patient has history of COPD not on home oxygen pulse ox on 2 L is 96% today patient is asymptomatic. Plan is to continue the present management. 10/31/2018-patient has history of COPD, not on home oxygen pulse ox on 2 L today is 96%. 11/01/2018-patient has history of COPD not on home oxygen his pulse ox today is 93% on room air. Plan is to continue the present management. (6) Obesity (BMI 30-39.9) Is this a current diagnosis for this admission?: Yes Plan: 10/27/2018-patient's BMI is more than 35. Diet exercise weight loss and lifestyle modifications discussed. Dietary consult was requested. 10/28/2018-plan is to continue the present management. 08/28/2019-patient's BMI is close to 40 again diet exercise weight loss was advised. 10/30/2018-patient's BMI is more than 40. Dietary consult was requested. 11/01/2018-dietary consult was done this during the admission for obesity. And again dietary recommendations are made. (7) Diabetes 1.5, managed as type 2 Is this a current diagnosis for this admission?: Yes Plan: 10/27/2018 patient is giving history of type 2 diabetes mellitus. Hemoglobin A1c is requested. pt going to be on insulin sliding scale before meals at bedtime with Humalog coverage. Dietary consult was requested is on diabetic diet. 10/28/2018 patient has history of type 2 diabetes mellitus latest blood sugar is 182. Hemoglobin A1c is 10.8. Patient is presently on insulin sliding scale before meals and at bedtime. And is on metformin thousand milligrams p.o. twice daily at home which was on hold. Plan is to start him on Lantus 10 units twice a day. 10/29/2018-patient has history of type 2 diabetes mellitus his hemoglobin A1c is 10.8. He is on metformin at home which was on hold here. Latest blood sugar is 245. Plan is to increase the Lantus to 15 units twice a day. Also on insulin sliding scale before meals and at bedtime. 10/30/2018-patient has history of diabetes mellitus type 2 hemoglobin A1c is 10.8 latest blood sugar is 272. Patient is presently on Lantus 15 units twice a day and also insulin sliding scale coverage before meals and at bedtime. 10/31/2018 patient's hemoglobin A1c is 10.8 today is 118. He is on Lantus 15 units twice a day and insulin sliding scale coverage before meals and at bedtime. Plan is to continue the present management. 11/01/2018-patient's blood sugar is 238. He is on Lantus 15 units twice a day and insulin sliding scale as needed. He is going to be n.p.o. for this morning be going to continue the present management. (8) Coronary artery disease Is this a current diagnosis for this admission?: Yes Plan: 10/27/2018-patient is given the history of coronary artery disease status post stent placement complaint of chest pain at the time of admission cardiac enzymes are negative so far. His chest pain-free this morning. Chest pain probably secondary to A. fib with RVR which was resolved. 10/28/2018 patient has history of coronary artery disease status post stent placement. Chest pain during this admission probably secondary to A. fib with RVR. No complaints of chest pains today. 10/29/2018-patient has history of coronary artery disease status post stent placement. No complaints of chest pains today. 10/30/2018-patient has history of coronary artery disease with stent placement. No complaints of chest pain during the hospital stay. Patient is presently on heparin drip as a bridge for possible cholecystectomy. 11/01/2018 patient has history of coronary artery disease status post stent placements no complaints of chest pains during the hospital stay. (9) Cholecystitis Is this a current diagnosis for this admission?: Yes Plan: 10/30/2018 gallbladder ultrasound shows gallstones with cholecystitis. Patient is going for MRCP today. He is on a heparin drip as a bridge for possible cholecystectomy tomorrow. Patient is complaining of abdominal pain just a while ago I started him on morphine 1 mg IV every 4 as needed for pain. Also Percocets every 6 as needed. 10/31/2018 ultrasound gallbladder shows gallstones along with cholecystitis and dilated bile duct. Patient is in the OR for cholecystectomy. Yesterday surgical team planned for MRCP but he has few metal objects in the abdomen secondary to previous surgery involving the colon resection. So MRCP was canceled. 11/01/2018-patient has gallbladder surgery done yesterday is going to be n.p.o. is going for HIDA scan today drain is present and 30 cc of bloodstained fluid is coming per shift. Plan will continue the present management as per surgical team. s/p cholecystectomy on 10/31/2018 - Time Time Spent with patient: 15-24 minutes Medications reviewed and adjusted accordingly: Yes Anticipated discharge: Home
--- NOTE | 2018-11-01 11:31 | PDOC PROGRESS REPORT ---
Subjective Progress Note for:: 11/01/18 Subjective:: more comfortable. Some pains at RUQ about 1-2/5 Reason For Visit: AFIB CHEST PAIN Physical Exam Vital Signs: Temp Pulse Resp BP Pulse Ox 97.3 F 96 18 128/77 H 93 11/01/18 08:04 11/01/18 08:04 11/01/18 08:04 11/01/18 08:04 11/01/18 08:04 Pulse Oximeter Continuous Start: 10/31/18 13:48 Freq: RTQ4 Status: Active Protocol: Document 11/01/18 04:19 CMI (Rec: 11/01/18 04:19 CMI [id number]) Pulse Oximetry Assessment Oxygen Saturation (92-100) 90 Oxygen Flow Rate (L/min) 2 Oxygen Delivery Method Nasal Cannula Fraction of Inspired Oxygen (FIO2) 28 Equipment Usage Equipment in Use Continuous SpO2 Machine # 11 Intake & Output 10/31/18 11/01/18 11/02/18 06:59 06:59 06:59 Intake Total 810 7524 50 Output Total 1115 4653 Balance -305 2871 50 Weight 106.7 kg 112.6 kg Exam: abdomen is soft with mild tenderness RUQ LOIS drain 30 ccs. Pulled out Results Laboratory Results: 11/01/18 06:07 11/01/18 06:07 11/01/18 11/01/18 06:07 06:07 WBC 14.9 H RBC 4.13 L Hgb 12.7 L Hct 37.4 L MCV 90 MCH 30.7 MCHC 34.0 RDW 13.7 Plt Count 258 Seg Neutrophils % 83.8 H Lymphocytes % 6.6 L Monocytes % 9.2 Eosinophils % 0.0 Basophils % 0.4 Absolute Neutrophils 12.5 H Absolute Lymphocytes 1.0 Absolute Monocytes 1.4 Absolute Eosinophils 0.0 Absolute Basophils 0.1 Sodium 136.7 L Potassium 4.7 Chloride 98 Carbon Dioxide 32 H Anion Gap 7 BUN 16 Creatinine 0.70 Est GFR ( Amer) > 60 Est GFR (Non-Af Amer) > 60 Glucose 226 H Calcium 9.5 Total Bilirubin 0.4 AST 20 ALT 38 Alkaline Phosphatase 62 Total Protein 5.4 L Albumin 2.8 L Lipase 39.4 10/26/18 10/27/18 10/27/18 19:52 01:49 08:21 Creatine Kinase CK-MB (CK-2) 0.64 0.74 Troponin I < 0.012 < 0.012 < 0.012 NT-Pro-B Natriuret Pep 10/27/18 10/27/18 10/28/18 08:21 15:00 05:28 Creatine Kinase < 20 L CK-MB (CK-2) 0.38 Troponin I < 0.012 NT-Pro-B Natriuret Pep 237 10/29/18 10/29/18 10/29/18 12:23 12:23 18:19 Creatine Kinase < 20 L < 20 L CK-MB (CK-2) 0.31 Troponin I < 0.012 NT-Pro-B Natriuret Pep 10/29/18 10/30/18 10/30/18 18:19 00:24 00:24 Creatine Kinase < 20 L CK-MB (CK-2) 0.33 0.26 Troponin I < 0.012 < 0.012 NT-Pro-B Natriuret Pep Impressions: Abdomen/Pelvis CT 10/26/18 00:00 IMPRESSION: No acute disease. Chest X-Ray 10/26/18 20:17 IMPRESSION: Cardiomegaly. No acute cardiopulmonary process copyright 2011 [employer]- All Rights Reserved Abdomen Ultrasound 10/29/18 00:00 IMPRESSION: Cholelithiasis and cholecystitis. Dilated common bile duct, suspect choledocholithiasis. Assessment & Plan - Diagnosis (1) Cholelithiasis and acute cholecystitis without obstruction Is this a current diagnosis for this admission?: Yes (2) Common bile duct dilatation Is this a current diagnosis for this admission?: Yes - Time Time Spent with patient: 15-24 minutes - Inpatient Certification Medical Necessity: Need for IV Antibiotics, Risk of Complication if Not Cared For in Hospital - Plan Summary Plan Summary: POD 1 post lap lindy for an acute/subacute calculus cholecystitis. Unable to do cholangiogram for a 1.3 cm CBD His LFTs remain normal today. WBC is 14,000. Would continue IV antibiotics for 24-48 hrs D/W Hospitalist. Will order HIDA scan since unable to do MRCP with metal near liver. OK to resume Eliquis
[2018-11-01] MEDS: ATORVASTATIN CALCIUM 80 MG TABLET PO SCH (22:20)
[2018-11-02] MEDS: RINGERS SOLUTION,LACTATED 1,000 ML IV PRN (01:37)
[2018-11-02] MEDS: LEVALBUTEROL HCL NEB 1.25 MG/3 ML AMPUL NEB SCH ×4 (01:47→20:44)
[2018-11-02] MEDS: IPRATROPIUM BROMIDE 0.02% NEB 0.5 MG/2.5 ML AMPUL NEB SCH ×4 (01:47→20:44)
[2018-11-02 05:50] LABS: ABSOLUTE EOSINOPHILS # (AUTO) 0.1 10^3/uL (0.0-0.6); ABSOLUTE LYMPHOCYTES (AUTO) 1.6 10^3/uL (0.5-4.7); ABSOLUTE MONOCYTES (AUTO) 1.2 10^3/uL (0.1-1.4); BASOPHILS % (AUTO) 0.4 % (0-2); EOSINOPHILS % (AUTO) 0.4 % (0-6); HEMATOCRIT 37.5 % (37.9-51.0); HEMOGLOBIN 12.5 g/dL (13.5-17.0); LYMPHOCYTES % (AUTO) 12.2 % (13-45); MEAN CORPUSCULAR HGB CONC 33.2 g/dL (32.0-36.0); MEAN CORPUSCULAR VOLUME 90 fl (80-97); MONOCYTES % (AUTO) 9.4 % (3-13); PLATELET COUNT 275 10^3/uL (150-450); RED BLOOD COUNT 4.16 10^6/uL (4.35-5.55); RED CELL DISTRIBUTION WIDTH 13.4 % (11.5-14.0); SEGMENTED NEUTROPHILS % (AUTO) 77.6 % (42-78); TOTAL CELLS COUNTED % (AUTO) 100 %; WHITE BLOOD COUNT 12.9 10^3/uL (4.0-10.5)
[2018-11-02 06:06] LABS: ALANINE AMINOTRANSFERASE 31 U/L (21-72); ALBUMIN 2.7 g/dL (3.5-5.0); ALKALINE PHOSPHATASE 58 U/L (38-126); ANION GAP 6 (5-19); ASPARTATE AMINO TRANSFERASE 17 U/L (17-59); BILIRUBIN,DIRECT 0.3 mg/dL (0.0-0.4); BILIRUBIN,TOTAL 0.4 mg/dL (0.2-1.3); BLOOD UREA NITROGEN 15 mg/dL (7-20); CALCIUM 9.4 mg/dL (8.4-10.2); CARBON DIOXIDE 35 mmol/L (22-30); CHLORIDE 99 mmol/L (98-107); GLUCOSE 133 mg/dL (75-110); POTASSIUM 3.9 mmol/L (3.6-5.0); SODIUM 139.5 mmol/L (137-145); TOTAL PROTEIN 5.3 g/dL (6.3-8.2)
[2018-11-02] MEDS: HEPARIN SODIUM,PORCINE/D5W 25,000 UNIT/250 ML RTUINJ IV PRN (06:20)
[2018-11-02] MEDS: LANSOPRAZOLE 30 MG TAB.RAP.DR PO SCH (06:24)
[2018-11-02 06:25] LABS: APPEARANCE,URINE CLEAR; BILIRUBIN,URINE NEGATIVE (NEGATIVE); COLOR,URINE YELLOW; GLUCOSE, URINE 50 mg/dL (NEGATIVE); KETONES,URINE NEGATIVE (NEGATIVE); LEUKOCYTE ESTERASE,URINE NEGATIVE (NEGATIVE); NITRITE,URINE NEGATIVE (NEGATIVE); PROTEIN,URINE NEGATIVE (NEGATIVE); URINE SPECIFIC GRAVITY 1.011; UROBILINOGEN,URINE NEGATIVE mg/dL (<2.0)
[2018-11-02] MEDS: INSULIN REG, HUMAN 100 UNIT/ML 3 ML VIAL (PYX) SUBCUT SCH ×4 (10:40→21:45)
--- NOTE | 2018-11-02 10:41 | RADIOLOGY REPORT (SQ) ---
EXAM DESCRIPTION: NM HIDA SCAN COMPLETED DATE/TIME: 11/02/2018 10:14 am REASON FOR STUDY: BILE LEAK post cholecystectomy COMPARISON: Right upper quadrant ultrasound 10/29/2018 CT abdomen pelvis 10/26/2018 RADIONUCLIDE AND DOSE: DOSAGE RADIONUCLIDE: 5.5 millicuries Tc99m Mebrofenin. DOSAGE MORPHINE: Not required. The route of agent administration: Intravenous TECHNIQUE: Serial imaging right upper quadrant up to 60 minutes following injection of radionuclide. Patient imaged AP and Right Lateral. LIMITATIONS: None. FINDINGS: LIVER: Normal visualization without areas of photopenia. INTRA-HEPATIC BILE DUCTS: Normal visualization COMMON BILE DUCT: Normal visualization GALLBLADDER: Surgically absent. No activity accumulating in the gallbladder fossa worrisome for bile leak. OTHER: There is minimal reflux of activity into the stomach fundus. IMPRESSION: No evidence of bile leak No evidence of common bile duct obstruction TECHNICAL DOCUMENTATION: JOB ID: [id number] [employer]- All Rights Reserved Reading location - IP/workstation name: [email or web address]
[2018-11-02] MEDS: RANOLAZINE 500 MG TAB.SR.12H PO SCH ×2 (10:50→21:47)
[2018-11-02] MEDS: EZETIMIBE 10 MG TABLET PO SCH (10:50)
[2018-11-02] MEDS: DOCUSATE SODIUM 100 MG CAPSULE PO SCH ×2 (10:50→17:10)
[2018-11-02] MEDS: FLUTICASONE NASAL SPRAY 50 MCG/SPRY 120 SPRAY/16 GM NASL SCH ×2 (10:50→21:47)
[2018-11-02] MEDS: INSULIN GLARGINE,HUM.REC.ANLOG 1,000 UNIT/10 ML UNIT SUBCUT SCH (10:51)
[2018-11-02] MEDS: CEFEPIME 2 GM/D5W RTU 2 GM/50 ML RTUPB IV SCH ×2 (10:51→21:47)
--- NOTE | 2018-11-02 12:04 | PDOC PROGRESS REPORT ---
Subjective Progress Note for:: 11/02/18 Subjective:: 77 year old male with a past medical history of oxygen dependent COPD, obstructive sleep apnea with noncompliance, coronary artery disease with stent remotely, diverticulitis with partial colectomy and diabetes. He presents with approximately a week of abdominal pain prompting him to seek evaluation in the emergency room where he was found to have A. fib with RVR. He started on IV Cardizem and full dose Lovenox then referred to the hospitalist for admission. Patient denies previous episode denies current abdominal pain. CT of the abdomen pelvis was unremarkable. Patient denies recent change in medications and otherwise is felt well. 10/27/[id number]-fpla-old male with history of COPD obstructive sleep apnea coronary artery disease with history of stent placement to diabetic admitted for abdominal pain and new onset A. fib with RVR. CT abdomen and pelvis was negative for acute pathology. Chest x-ray was negative for fluid overload. She was initially on Cardizem drip and presently on a Coreg 6.25 mg p.o. twice daily. He is in sinus rhythm. No acute events in the last 24 hours. Patient is afebrile. 10/28/2018 77-year-old male with history of COPD, obstructive sleep apnea, coronary artery disease with stent placement, diabetic admitted with abdominal pain and new onset atrial fibrillation with rapid ventricular rate. CT abdomen pelvis was negative for acute pathology and his abdomen was soft nontender no complaints of the abdominal pain anymore. Patient was initially on Cardizem drip presently on Coreg 6.25 mg p.o. twice a day. His heart rate is 109 and is going in and out of atrial fibrillation. Latest EKG shows atrial fibrillation. Cardiogram was done no valvular pathology was noticed. Dr. Farias went to see the patient yesterday but patient refused to cooperate and told Dr. Farias that he is going to see Dr. Calderon as an outpatient. So Dr. Farias signed off from the patient care. This morning patient was sarcastic agitated, upset and I try to talk to him to him along with the nurse Eunice that that he needs see to the robotics technician here because of the new onset of atrial fibrillation and he may need anticoagulation but the patient is insisting he does not want to see the robotics technician he does not want any heart surgery but he agreed for anticoagulation with Eliquis. Requested the nurse Eunice to involve the risk management and the patient care. 10/29/2018 77-year-old male admitted for abdominal pain found to have A. fib with rapid ventricular rate, he refused a cardiology consult refused to talk to Dr. Farias. He agreed to be on Eliquis started on Eliquis yesterday and started on Cardizem 60 mg p.o. twice a day heart rate is better controlled at 97 today. Patient is still complaining of right-sided abdominal pain. Initial CT abdomen pelvis was negative for acute pathology but because of patient's complaining of persistent pain in the right upper quadrant planning to do the ultrasound of the gallbladder. No other complaints from the patient. No acute events in the last 24 hours. Patient is afebrile. 10/30/[id number]-eiik-old male admitted for abdominal pain also found to have A. fib with rapid ventricular rate. He was started on Eliquis and Cardizem p.o. Yesterday he is complaining of right-sided abdominal pain, initial CT came back negative for acute pathology. Ultrasound of the gallbladder was done found to have a dilated bile duct and gallstones possible Flora cystitis. Surgical team saw the patient this morning they recommended MRCP. As per the surgical recommendations patient was started on heparin drip yesterday and Eliquis was discontinued. I spoke to Dr. Turner this morning he said if necessary they may take the patient to the surgery tomorrow. No acute events in the last 24 hours. Patient is afebrile. 10/31/2018-no acute events in the last 24 hours. Patient is afebrile. Patient came in with abdominal pain and A. fib with RVR. He is on heparin bridge for possible cholecystectomy. Patient went to the OR this morning. He was cleared for surgery by Dr. Farias. 11/01/2018-patient had gallbladder surgery yesterday. I spoke to Dr. Turner we discussed the plan of care LFTs are normal lipase was normal patient is asymptomatic with expiratory for occasional pain he does not have any bowel movement is not passing any gas yet Dr. Turner recommended HIDA scan this evening. I placed the order for HIDA scan the drain is present draining around 30 cc of bloodstained fluid per shift. Patient does not have any complaints. Patient is on a heparin drip. 11/02/2018-patient had a HIDA scan done today the radiologist Dr. Riddle called me and told me it was negative. Patient LFTs and lipase levels are negative. Patient denies any complaints. No acute events in the last 24 hours. Patient is afebrile. I spoke to Dr. Turner he recommended that patient can be discharged today because he is on heparin drip need to be restarted on Eliquis I am planning to keep him until another day tomorrow he is going to go home on p.o. antibiotics. Reason For Visit: AFIB CHEST PAIN Physical Exam Vital Signs: Temp Pulse Resp BP Pulse Ox 97.9 F 84 18 142/72 H 90 L 11/02/18 07:28 11/02/18 08:00 11/02/18 08:00 11/02/18 07:28 11/02/18 08:00 Pulse Oximeter Continuous Start: 10/31/18 13:48 Freq: RTQ4 Status: Active Protocol: Document 11/02/18 08:00 [facility] (Rec: 11/02/18 11:16 [facility] [id number]) Pulse Oximetry Assessment Oxygen Saturation (92-100) 90 Oxygen Flow Rate (L/min) 1.5 Oxygen Delivery Method Nasal Cannula Equipment Usage Equipment Standby Continuous SpO2 Machine # N 11 Intake & Output 11/01/18 11/02/18 11/03/18 06:59 06:59 06:59 Intake Total 7524 3437 1139 Output Total 4653 2305 Balance 2871 1132 1139 Weight 112.6 kg 113.5 kg General appearance: PRESENT: no acute distress Head exam: PRESENT: atraumatic Eye exam: PRESENT: PERRLA Teeth exam: PRESENT: poor dentation Neck exam: ABSENT: carotid bruit, JVD, lymphadenopathy, thyromegaly Respiratory exam: PRESENT: decreased breath sounds Cardiovascular exam: PRESENT: irregular rhythm, systolic murmur GI/Abdominal exam: PRESENT: normal bowel sounds, soft. ABSENT: distended, guarding, mass, organolmegaly, rebound, tenderness Extremities exam: PRESENT: full ROM. ABSENT: calf tenderness, clubbing, pedal edema Neurological exam: PRESENT: alert, awake, oriented to person, oriented to place, oriented to time, oriented to situation, CN II-XII grossly intact. ABSENT: motor sensory deficit Psychiatric exam: PRESENT: appropriate affect, normal mood. ABSENT: homicidal ideation, suicidal ideation Results Laboratory Results: 11/02/18 04:56 11/02/18 04:56 11/02/18 11/02/18 11/02/18 04:56 04:56 05:53 WBC 12.9 H RBC 4.16 L Hgb 12.5 L Hct 37.5 L MCV 90 MCH 30.0 MCHC 33.2 RDW 13.4 Plt Count 275 Seg Neutrophils % 77.6 Lymphocytes % 12.2 L Monocytes % 9.4 Eosinophils % 0.4 Basophils % 0.4 Absolute Neutrophils 10.0 H Absolute Lymphocytes 1.6 Absolute Monocytes 1.2 Absolute Eosinophils 0.1 Absolute Basophils 0.0 Sodium 139.5 Potassium 3.9 Chloride 99 Carbon Dioxide 35 H Anion Gap 6 BUN 15 Creatinine 0.70 Est GFR ( Amer) > 60 Est GFR (Non-Af Amer) > 60 Glucose 133 H Calcium 9.4 Magnesium 1.9 Total Bilirubin 0.4 AST 17 ALT 31 Alkaline Phosphatase 58 Total Protein 5.3 L Albumin 2.7 L Urine Color YELLOW Urine Appearance CLEAR Urine pH 6.0 Ur Specific [place] 1.011 Urine Protein NEGATIVE Urine Glucose (UA) 50 H Urine Ketones NEGATIVE Urine Blood NEGATIVE Urine Nitrite NEGATIVE Ur Leukocyte Esterase NEGATIVE Urine WBC (Auto) 0 10/26/18 10/27/18 10/27/18 19:52 01:49 08:21 Creatine Kinase CK-MB (CK-2) 0.64 0.74 Troponin I < 0.012 < 0.012 < 0.012 NT-Pro-B Natriuret Pep 10/27/18 10/27/18 10/28/18 08:21 15:00 05:28 Creatine Kinase < 20 L CK-MB (CK-2) 0.38 Troponin I < 0.012 NT-Pro-B Natriuret Pep 237 10/29/18 10/29/18 10/29/18 12:23 12:23 18:19 Creatine Kinase < 20 L < 20 L CK-MB (CK-2) 0.31 Troponin I < 0.012 NT-Pro-B Natriuret Pep 10/29/18 10/30/18 10/30/18 18:19 00:24 00:24 Creatine Kinase < 20 L CK-MB (CK-2) 0.33 0.26 Troponin I < 0.012 < 0.012 NT-Pro-B Natriuret Pep Impressions: Abdomen/Pelvis CT 10/26/18 00:00 IMPRESSION: No acute disease. Chest X-Ray 10/26/18 20:17 IMPRESSION: Cardiomegaly. No acute cardiopulmonary process copyright 2010 [employer] All Rights Reserved Abdomen Ultrasound 10/29/18 00:00 IMPRESSION: Cholelithiasis and cholecystitis. Dilated common bile duct, suspect choledocholithiasis. Hepatobiliary Scan Nuclear Medicine 11/02/18 00:00 IMPRESSION: No evidence of bile leak No evidence of common bile duct obstruction Assessment & Plan - Diagnosis (1) Atrial fibrillation Is this a current diagnosis for this admission?: Yes Plan: 10/27/2018 patient was admitted with new onset atrial fibrillation with RVR. Initially on Cardizem drip, presently is on Coreg 6.5 mg p.o. twice daily. He is in sinus rhythm. Cardiology consult was requested echocardiogram requested. Patient is asymptomatic. Patient states he is going to follow-up with Dr. Calderon as an outpatient. He reluctantly agreed to see the robotics technician today. Patient is presently on Lovenox therapeutic dose. FAll precautions are requested.. 10/28/2018-patient was admitted with atrial fibrillation with RVR is present heart rate is 109. He is on Coreg 6.25 mg p.o. twice daily. He is on Plavix aspirin and Lovenox. He is refusing see the robotics technician team here in this hospital. He agreed to be on anticoagulation Eliquis. Put him on 2.5 mg of Eliquis twice daily and Cardizem 60 mg p.o. twice daily for rate control. Echocardiogram shows no valvular abnormalities. Requested the risk management involved in the case. Hopefully we may discharge him tomorrow. 10/29/2018-patient was admitted with new onset atrial fibrillation with RVR. Heart rate today is 97. He is on Cardizem 60 mg p.o. twice a day and also was started on Eliquis 2.5 mg p.o[address] twice daily. Dr. Farias went to talk to him to try to help him but pt refused to cooperate with Dr. Farias. Patient is insisting that Dr. Calderon is his robotics technician and he does not want to see anybody else. Plan is to continue the present management. 10/30/[id number]-ohnc-old male admitted with new onset atrial fibrillation with RVR. He was started on Eliquis and Cardizem p.o. His heart rate is 78. He does not want any cardiology input from here. He wants to see Dr. Calderon as an outpatient. In the meantime he found to have possible cholecystitis and as per the surgical recommendations Eliquis was on hold and started on heparin bridge for possible surgery tomorrow. Patient is n.p.o. today for MRCP. 10/31/2018 77-year-old male admitted for A. fib with RVR. Is on heparin drip. Refused cardiology evaluation initially during the hospital stay. Found to have gallbladder disease and going for a surgery today. Plan is to discharge him once he is stable and advised him to follow-up with Dr. Calderon as an outpatient. 11/01/2018-patient was admitted with A. fib with RVR. He is on heparin drip now. He still in atrial fib but rate controlled. Once the drain is removed he may go back on Eliquis. He is going for HIDA scan today. Patient is on diltiazem 60 mg p.o. every 12 hours and Coreg 6.5 mg p.o. twice a day. Heart rate just a while ago is 90. Plan is to continue the present management. 11/02/2018-patient was admitted with new onset A. fib with RVR. Started on Eliquis. Later on switched to heparin drip because of the possibility of surgery and he did went to undergo gallbladder removal 2 days ago. Drain was removed yesterday. HIDA scan was done today because of the concerns about a dilated bile duct Dr. Riddle called me and told me there is no biliary leakage basically they had a scan was negative. Talk to Dr. Turner he recommended the patient can be discharged today. Plan is today to stop his IV fluids hold his heparin drip restart his Eliquis continue antibiotics and probably discharge home tomorrow. Because the plan with the patient he agreed. (2) Abdominal pain Is this a current diagnosis for this admission?: Yes Plan: Likely an anginal equivalent given onset with A. fib with RVR. Follow-up cardiac enzymes consider cardiac stress test. 10/27/2018-patient came in with abdominal pain CT abdomen pelvis was negative abdominal pain was resolved is most likely secondary to atrial fibrillation RVR causing the anginal symptoms. 10/28/2018 patient was admitted with abdominal pain CT abdominal pelvis was negative for acute pathology. Abdominal pain probably secondary to atrial fi brillation. On examination of the abdomen there is no bruit, patient is not complaining of any postprandial abdominal pain. 10/29/2018-patient came in with abdominal pain CT abdomen/pelvis negative for acute pathology he still complaining of right-sided upper abdominal pain ,going to do the urine gallbladder ultrasound. Patient is happy with recommendation and is willing to stay another day if necessary. She denies any problems associated with feeding like a postprandial pain. 10/30/[id number]-ejhl-old male came with abdominal pain initial CT abdominal pelvis was negative for acute pathology yesterday is complaining of right upper quadrant pain ultrasound of gallbladder was done found to have a dilated bile duct and gallstones and cholecystitis. Patient is going for MRCP today. As per the surgical recommendations he is on IV heparin. Eliquis on hold since yesterday. Patient may go for surgery tomorrow. 10/31/2018-ultrasound of the gallbladder shows dilated bile duct along with gallstones and cholecystitis. Patient is on heparin drip for surgery. Plan is to hold heparin drip 6 hours prior to the surgery and patient is on the way to the OR today. 11/01/2018-patient came in with abdominal pain initial CAT scan was negative for acute pathology indicates cholelithiasis status post gallbladder surgery was done. Follow-up LFTs and lipase were negative. As per Dr. Turner's recomm endation we going to do the HIDA scan this evening. Patient has a surgical drain, draining 30 cc of bloodstained fluid per shift. Not passing gas yet. bowel sounds are present 11/02/2018-patient came in with abdominal pain right-sided ultrasound shows gallbladder disease with cholecystitis status post cholecystectomy. Diet was removed yesterday. HIDA scan was negative. Patient able to tolerate the feeds. He is passing gas since yesterday. He does not have any bowel movement for the last couple of days be going to give Veltassa 8.4 g and lactulose. We do not have any Kayexalate it is in the back order. (3) Chest pain Is this a current diagnosis for this admission?: Yes Plan: 10/27/2018 patient came in with chest pain probably secondary to. Cardiac enzymes are negative. no Complaints of chest pain this morning. 10/28/2018-patient came in with complaints of chest pain probably secondary to A. fib with RVR. Cardiac enzymes are negative. Echocardiogram was normal. No complaints of chest pains this morning. 10/29/2018-patient came in with chest pain most likely secondary to A. fib with rapid ventricular rate. Cardiac enzymes are negative. Echocardiogram was normal. No complaints of chest pains today. 10/30/2018-patient was admitted with chest pain chest pain most likely secondary to atrial fibrillation RVR. Heart rate is controlled patient is not complaining of chest pains anymore. Cardiac enzymes are negative. 10/31/2018 patient came into chest pains cardiac enzymes or EKGs are negative except for A. fib. Chest pain most likely secondary to atrial fibrillation. pt is chest pain-free today. 11/01/2018 patient initially came in with chest pains cardiac enzymes are negative EKG shows atrial fibrillation RVR chest pain most likely secondary to atrial fibrillation. 11/02/2018 chest pain was resolved this pain most likely secondary to ischemic in nature due to atrial fibrillation. (4) Obstructive sleep apnea Is this a current diagnosis for this admission?: No Plan: 10/27/2018 patient history of obstructive sleep apnea is noncompliant with his BiPAP machine at home. BiPAP was requested during this hospital stay. 10/28/2018-patient has history of obstructive sleep apnea is noncompliant with BiPAP at home. Order for the BiPAP was placed here in this hospital. 10/29/2018-patient has history of obstructive sleep apnea uses BiPAP at home. He is noncompliant with BiPAP at home. Order was placed for BiPAP here in the hospital. 10/30/2018-patient has history of obstructive sleep apnea he is randomly using BiPAP at home. Order for BiPAP was placed here. 10/31/2018-patient has obstructive sleep apnea supposed to be on BiPAP at home. He is noncompliant with the BiPAP. Presently he is using BiPAP at night during this hospital stay. 11/01/2018 patient has history of obstructive sleep apnea on BiPAP at home. BiPAP orders were placed during this hospital stay. 11/02/2018 patient has history of obstructive sleep apnea on BiPAP at home. BiPAP orders were placed here in the hospital. (5) COPD (chronic obstructive pulmonary disease) Is this a current diagnosis for this admission?: No Plan: 10/27/2018-patient is given the history of COPD not on home oxygen he is presently on Xopenex, Atrovent, Flonase and supplemental oxygen. Pulse ox is 93% on 2 L. Chest examination bilateral entry was decreased but no wheezing no crepitations. 10/28/2018 patient has history of COPD not on home oxygen. He is on oxygen 2 L via nasal cannula here pulse ox is 96% on 2 L is on Xopenex, Atrovent, Flonase. 10/29/2018-patient has history of COPD not on home oxygen. His pulse ox is 98% on 2 L in the hospital. We are going to discontinue oxygen to see how is doing today. Plan is to discontinue flutter valve therapy and nebulizer treatments. On examination chest bilateral entry was good. 10/30/2018-patient has history of COPD not on home oxygen pulse ox on 2 L is 96% today patient is asymptomatic. Plan is to continue the present management. 10/31/2018-patient has history of COPD, not on home oxygen pulse ox on 2 L today is 96%. 11/01/2018-patient has history of COPD not on home oxygen his pulse ox today is 93% on room air. Plan is to continue the present management. 11/02/2018-patient has history of COPD not on home oxygen his pulse ox today on 2 L is 94%. Plan is to continue the present management. (6) Obesity (BMI 30-39.9) Is this a current diagnosis for this admission?: Yes Plan: 10/27/2018-patient's BMI is more than 35. Diet exercise weight loss and lifestyle modifications discussed. Dietary consult was requested. 10/28/2018-plan is to continue the present management. 08/28/2019-patient's BMI is close to 40 again diet exercise weight loss was advised. 10/30/2018-patient's BMI is more than 40. Dietary consult was requested. 11/01/2018-dietary consult was done this during the admission for obesity. And again dietary recommendations are made. 11/02/2018-patient has history of obesity BMI is more than 40 diet exercise weight loss was again advised. (7) Diabetes 1.5, managed as type 2 Is this a current diagnosis for this admission?: Yes Plan: 10/27/2018 patient is giving history of type 2 diabetes mellitus. Hemoglobin A1c is requested. pt going to be on insulin sliding scale before meals at bedtime with Humalog coverage. Dietary consult was requested is on diabetic diet. 10/28/2018 patient has history of type 2 diabetes mellitus latest blood sugar is 182. Hemoglobin A1c is 10.8. Patient is presently on insulin sliding scale before meals and at bedtime. And is on metformin thousand milligrams p.o. twice daily at home which was on hold. Plan is to start him on Lantus 10 units twice a day. 10/29/2018-patient has history of type 2 diabetes mellitus his hemoglobin A1c is 10.8. He is on metformin at home which was on hold here. Latest blood sugar is 245. Plan is to increase the Lantus to 15 units twice a day. Also on insulin sliding scale before meals and at bedtime. 10/30/2018-patient has history of diabetes mellitus type 2 hemoglobin A1c is 10.8 latest blood sugar is 272. Patient is presently on Lantus 15 units twice a day and also insulin sliding scale coverage before meals and at bedtime. 10/31/2018 patient's hemoglobin A1c is 10.8 today is 118. He is on Lantus 15 units twice a day and insulin sliding scale coverage before meals and at bedtime. Plan is to continue the present management. 11/01/2018-patient's blood sugar is 238. He is on Lantus 15 units twice a day and insulin sliding scale as needed. He is going to be n.p.o. for this morning be going to continue the present management. 11/02/2018-patient latest blood sugar is 121 hemoglobin A1c is 10.8. Presently he is on Lantus 50 units twice a day and insulin sliding scale. Plan is to continue the present management. (8) Coronary artery disease Is this a current diagnosis for this admission?: Yes (9) Cholecystitis Is this a current diagnosis for this admission?: Yes Plan: 10/30/2018 gallbladder ultrasound shows gallstones with cholecystitis. Patient is going for MRCP today. He is on a heparin drip as a bridge for possible cholecystectomy tomorrow. Patient is complaining of abdominal pain just a while ago I started him on morphine 1 mg IV every 4 as needed for pain. Also Percocets every 6 as needed. 10/31/2018 ultrasound gallbladder shows gallstones along with cholecystitis and dilated bile duct. Patient is in the OR for cholecystectomy. Yesterday surgical team planned for MRCP but he has few metal objects in the abdomen secondary to previous surgery involving the colon resection. So MRCP was canceled. 11/01/2018-patient has gallbladder surgery done yesterday is going to be n.p.o. is going for HIDA scan today drain is present and 30 cc of bloodstained fluid is coming per shift. Plan will continue the present management as per surgical team. s/p cholecystectomy on 10/31/2018 11/02/2018-ultrasound gallbladder shows gallstones with cholecystitis status post cholecystectomy. - Time Time Spent with patient: 15-24 minutes Medications reviewed and adjusted accordingly: Yes Anticipated discharge: Home
[2018-11-02] MEDS: INSULIN GLARGINE,HUM.REC.ANLOG 300 UNIT/3 ML INSULN.PEN SUBCUT SCH ×2 (12:21→21:46)
[2018-11-02] MEDS: LACTULOSE SYRUP 20 GM/30 ML UDCUP PO PRN ×2 (12:28→18:01)
[2018-11-02] MEDS: APIXABAN 2.5 MG TABLET PO SCH (17:10)
--- NOTE | 2018-11-02 17:32 | PDOC PROGRESS REPORT ---
Subjective Progress Note for:: 11/02/18 Subjective:: In general patient feels better; no bowel movement to date. HIDA Scan earlier today interpreted as normal. Reason For Visit: AFIB CHEST PAIN Physical Exam Vital Signs: Temp Pulse Resp BP Pulse Ox 98.4 F 86 18 138/66 H 91 L 11/02/18 14:47 11/02/18 14:47 11/02/18 14:47 11/02/18 14:47 11/02/18 14:47 Pulse Oximeter Continuous Start: 10/31/18 13:48 Freq: RTQ4 Status: Active Protocol: Document 11/02/18 13:52 [facility] (Rec: 11/02/18 14:11 [facility] [id number]) Pulse Oximetry Assessment Oxygen Saturation (92-100) 94 Oxygen Flow Rate (L/min) 1.5 Oxygen Delivery Method Nasal Cannula Fraction of Inspired Oxygen (FIO2) 26 Equipment Usage Equipment Standby Continuous SpO2 Machine # N 11 Intake & Output 11/01/18 11/02/18 11/03/18 06:59 06:59 06:59 Intake Total 7524 3437 1389 Output Total 4653 2305 300 Balance 2871 1132 1089 Weight 112.6 kg 113.5 kg General appearance: PRESENT: no acute distress, other - Sitting in chair; no acute distress GI/Abdominal exam: PRESENT: other - Abdomen soft no peritoneal signs no rigidity. No guarding Results Laboratory Results: 11/02/18 04:56 11/02/18 04:56 11/02/18 11/02/18 11/02/18 04:56 04:56 05:53 WBC 12.9 H RBC 4.16 L Hgb 12.5 L Hct 37.5 L MCV 90 MCH 30.0 MCHC 33.2 RDW 13.4 Plt Count 275 Seg Neutrophils % 77.6 Lymphocytes % 12.2 L Monocytes % 9.4 Eosinophils % 0.4 Basophils % 0.4 Absolute Neutrophils 10.0 H Absolute Lymphocytes 1.6 Absolute Monocytes 1.2 Absolute Eosinophils 0.1 Absolute Basophils 0.0 Sodium 139.5 Potassium 3.9 Chloride 99 Carbon Dioxide 35 H Anion Gap 6 BUN 15 Creatinine 0.70 Est GFR ( Amer) > 60 Est GFR (Non-Af Amer) > 60 Glucose 133 H Calcium 9.4 Magnesium 1.9 Total Bilirubin 0.4 AST 17 ALT 31 Alkaline Phosphatase 58 Total Protein 5.3 L Albumin 2.7 L Urine Color YELLOW Urine Appearance CLEAR Urine pH 6.0 Ur Specific [place] 1.011 Urine Protein NEGATIVE Urine Glucose (UA) 50 H Urine Ketones NEGATIVE Urine Blood NEGATIVE Urine Nitrite NEGATIVE Ur Leukocyte Esterase NEGATIVE Urine WBC (Auto) 0 10/26/18 10/27/18 10/27/18 19:52 01:49 08:21 Creatine Kinase CK-MB (CK-2) 0.64 0.74 Troponin I < 0.012 < 0.012 < 0.012 NT-Pro-B Natriuret Pep 10/27/18 10/27/18 10/28/18 08:21 15:00 05:28 Creatine Kinase < 20 L CK-MB (CK-2) 0.38 Troponin I < 0.012 NT-Pro-B Natriuret Pep 237 10/29/18 10/29/18 10/29/18 12:23 12:23 18:19 Creatine Kinase < 20 L < 20 L CK-MB (CK-2) 0.31 Troponin I < 0.012 NT-Pro-B Natriuret Pep 10/29/18 10/30/18 10/30/18 18:19 00:24 00:24 Creatine Kinase < 20 L CK-MB (CK-2) 0.33 0.26 Troponin I < 0.012 < 0.012 NT-Pro-B Natriuret Pep Impressions: Abdomen/Pelvis CT 10/26/18 00:00 IMPRESSION: No acute disease. Chest X-Ray 10/26/18 20:17 IMPRESSION: Cardiomegaly. No acute cardiopulmonary process copyright 2011 [employer]- All Rights Reserved Abdomen Ultrasound 10/29/18 00:00 IMPRESSION: Cholelithiasis and cholecystitis. Dilated common bile duct, suspect choledocholithiasis. Hepatobiliary Scan Nuclear Medicine 11/02/18 00:00 IMPRESSION: No evidence of bile leak No evidence of common bile duct obstruction Assessment & Plan - Diagnosis (1) Abdominal pain Is this a current diagnosis for this admission?: Yes Plan: Patient now 2 days status post laparoscopic cystectomy for cholelithiasis and cholecystitis; postoperative HIDA scan negative. Constipation; now treated with oral agents. Recommendations: 1. Continue with cathartic plan facilitate bowel movement 2. Patient to follow-up with CORNELIUS Murray, at [facility] in 1- 2 weeks; can take Tylenol or Motrin as needed.
[2018-11-02] MEDS: PATIROMER 8.4 GM SUSP PACKET PO SCH (18:29)
[2018-11-02] MEDS: ATORVASTATIN CALCIUM 80 MG TABLET PO SCH (21:47)
[2018-11-03] MEDS: LEVALBUTEROL HCL NEB 1.25 MG/3 ML AMPUL NEB SCH ×4 (02:14→20:33)
[2018-11-03] MEDS: IPRATROPIUM BROMIDE 0.02% NEB 0.5 MG/2.5 ML AMPUL NEB SCH ×4 (02:14→20:33)
[2018-11-03 04:49] LABS: ABSOLUTE BASOPHILS # (AUTO) 0.1 10^3/uL (0.0-0.2); ABSOLUTE EOSINOPHILS # (AUTO) 0.1 10^3/uL (0.0-0.6); ABSOLUTE LYMPHOCYTES (AUTO) 1.4 10^3/uL (0.5-4.7); ABSOLUTE MONOCYTES (AUTO) 1.2 10^3/uL (0.1-1.4); ABSOLUTE NEUT (AUTO) 9.5 10^3/uL (1.7-8.2); BASOPHILS % (AUTO) 0.8 % (0-2); EOSINOPHILS % (AUTO) 0.8 % (0-6); HEMATOCRIT 40.1 % (37.9-51.0); HEMOGLOBIN 13.3 g/dL (13.5-17.0); LYMPHOCYTES % (AUTO) 11.7 % (13-45); MEAN CORPUSCULAR HEMOGLOBIN 29.8 pg (27.0-33.4); MEAN CORPUSCULAR HGB CONC 33.1 g/dL (32.0-36.0); MEAN CORPUSCULAR VOLUME 90 fl (80-97); MONOCYTES % (AUTO) 10.1 % (3-13); PLATELET COUNT 312 10^3/uL (150-450); RED BLOOD COUNT 4.44 10^6/uL (4.35-5.55); RED CELL DISTRIBUTION WIDTH 13.6 % (11.5-14.0); SEGMENTED NEUTROPHILS % (AUTO) 76.6 % (42-78); TOTAL CELLS COUNTED % (AUTO) 100 %; WHITE BLOOD COUNT 12.4 10^3/uL (4.0-10.5)
[2018-11-03 05:19] LABS: ALANINE AMINOTRANSFERASE 34 U/L (21-72); ALKALINE PHOSPHATASE 65 U/L (38-126); ASPARTATE AMINO TRANSFERASE 21 U/L (17-59); BILIRUBIN,DIRECT 0.3 mg/dL (0.0-0.4); BILIRUBIN,TOTAL 0.4 mg/dL (0.2-1.3); BLOOD UREA NITROGEN 15 mg/dL (7-20); CALCIUM 10.3 mg/dL (8.4-10.2); GLUCOSE 202 mg/dL (75-110); TOTAL PROTEIN 5.8 g/dL (6.3-8.2)
[2018-11-03 05:24] LABS: CARBON DIOXIDE 38 mmol/L (22-30); CHLORIDE 98 mmol/L (98-107); SODIUM 140.2 mmol/L (137-145)
[2018-11-03 05:29] LABS: ANION GAP 4 (5-19)
[2018-11-03] MEDS: LANSOPRAZOLE 30 MG TAB.RAP.DR PO SCH (06:13)
[2018-11-03] MEDS: INSULIN GLARGINE,HUM.REC.ANLOG 300 UNIT/3 ML INSULN.PEN SUBCUT SCH ×2 (09:16→22:24)
[2018-11-03] MEDS: DOCUSATE SODIUM 100 MG CAPSULE PO SCH ×2 (09:17→17:17)
[2018-11-03] MEDS: APIXABAN 2.5 MG TABLET PO SCH ×2 (09:17→17:17)
[2018-11-03] MEDS: EZETIMIBE 10 MG TABLET PO SCH (09:17)
[2018-11-03] MEDS: RANOLAZINE 500 MG TAB.SR.12H PO SCH ×2 (09:17→22:27)
[2018-11-03] MEDS: FLUTICASONE NASAL SPRAY 50 MCG/SPRY 120 SPRAY/16 GM NASL SCH ×2 (09:17→22:27)
[2018-11-03] MEDS: INSULIN REG, HUMAN 100 UNIT/ML 3 ML VIAL (PYX) SUBCUT SCH ×4 (09:17→22:25)
[2018-11-03] MEDS: CEFEPIME 2 GM/D5W RTU 2 GM/50 ML RTUPB IV SCH ×2 (09:17→22:59)
--- NOTE | 2018-11-03 09:24 | PDOC PROGRESS REPORT ---
Subjective Progress Note for:: 11/03/18 Subjective:: 77 year old male with a past medical history of oxygen dependent COPD, obstructive sleep apnea with noncompliance, coronary artery disease with stent remotely, diverticulitis with partial colectomy and diabetes. He presents with approximately a week of abdominal pain prompting him to seek evaluation in the emergency room where he was found to have A. fib with RVR. He started on IV Cardizem and full dose Lovenox then referred to the hospitalist for admission. Patient denies previous episode denies current abdominal pain. CT of the abdomen pelvis was unremarkable. Patient denies recent change in medications and otherwise is felt well. 10/27/[id number]-jhyb-old male with history of COPD obstructive sleep apnea coronary artery disease with history of stent placement to diabetic admitted for abdominal pain and new onset A. fib with RVR. CT abdomen and pelvis was negative for acute pathology. Chest x-ray was negative for fluid overload. She was initially on Cardizem drip and presently on a Coreg 6.25 mg p.o. twice daily. He is in sinus rhythm. No acute events in the last 24 hours. Patient is afebrile. 10/28/2018 77-year-old male with history of COPD, obstructive sleep apnea, coronary artery disease with stent placement, diabetic admitted with abdominal pain and new onset atrial fibrillation with rapid ventricular rate. CT abdomen pelvis was negative for acute pathology and his abdomen was soft nontender no complaints of the abdominal pain anymore. Patient was initially on Cardizem drip presently on Coreg 6.25 mg p.o. twice a day. His heart rate is 109 and is going in and out of atrial fibrillation. Latest EKG shows atrial fibrillation. Cardiogram was done no valvular pathology was noticed. Dr. Farias went to see the patient yesterday but patient refused to cooperate and told Dr. Farias that he is going to see Dr. Calderon as an outpatient. So Dr. Farias signed off from the patient care. This morning patient was sarcastic agitated, upset and I try to talk to him to him along with the nurse Eunice that that he needs see to the mine captain here because of the new onset of atrial fibrillation and he may need anticoagulation but the patient is insisting he does not want to see the mine captain he does not want any heart surgery but he agreed for anticoagulation with Eliquis. Requested the nurse Eunice to involve the risk management and the patient care. 10/29/2018 77-year-old male admitted for abdominal pain found to have A. fib with rapid ventricular rate, he refused a cardiology consult refused to talk to Dr. Farias. He agreed to be on Eliquis started on Eliquis yesterday and started on Cardizem 60 mg p.o. twice a day heart rate is better controlled at 97 today. Patient is still complaining of right-sided abdominal pain. Initial CT abdomen pelvis was negative for acute pathology but because of patient's complaining of persistent pain in the right upper quadrant planning to do the ultrasound of the gallbladder. No other complaints from the patient. No acute events in the last 24 hours. Patient is afebrile. 10/30/[id number]-pcuo-old male admitted for abdominal pain also found to have A. fib with rapid ventricular rate. He was started on Eliquis and Cardizem p.o. Yesterday he is complaining of right-sided abdominal pain, initial CT came back negative for acute pathology. Ultrasound of the gallbladder was done found to have a dilated bile duct and gallstones possible Flora cystitis. Surgical team saw the patient this morning they recommended MRCP. As per the surgical recommendations patient was started on heparin drip yesterday and Eliquis was discontinued. I spoke to Dr. Turner this morning he said if necessary they may take the patient to the surgery tomorrow. No acute events in the last 24 hours. Patient is afebrile. 10/31/2018-no acute events in the last 24 hours. Patient is afebrile. Patient came in with abdominal pain and A. fib with RVR. He is on heparin bridge for possible cholecystectomy. Patient went to the OR this morning. He was cleared for surgery by Dr. Farias. 11/01/2018-patient had gallbladder surgery yesterday. I spoke to Dr. Turner we discussed the plan of care LFTs are normal lipase was normal patient is asymptomatic with expiratory for occasional pain he does not have any bowel movement is not passing any gas yet Dr. Turner recommended HIDA scan this evening. I placed the order for HIDA scan the drain is present draining around 30 cc of bloodstained fluid per shift. Patient does not have any complaints. Patient is on a heparin drip. 11/02/2018-patient had a HIDA scan done today the radiologist Dr. Riddle called me and told me it was negative. Patient LFTs and lipase levels are negative. Patient denies any complaints. No acute events in the last 24 hours. Patient is afebrile. I spoke to Dr. Turner he recommended that patient can be discharged today because he is on heparin drip need to be restarted on Eliquis I am planning to keep him until another day tomorrow he is going to go home on p.o. antibiotics. 11/03/2018-patient is complaining of right-sided abdominal pain he says his pain is ranging from 3-10. On examination gentle palpation is complaining of pain in the midline and also in the right upper quadrant. We are going to arrange for the CT abdomen without contrast today. No fevers. Pulse ox is 91% on 2 L. Reason For Visit: AFIB CHEST PAIN Physical Exam Vital Signs: Temp Pulse Resp BP Pulse Ox 97.7 F 79 28 H 136/93 H 91 L 11/03/18 07:19 11/03/18 07:19 11/03/18 07:19 11/03/18 07:19 11/03/18 07:19 Pulse Oximeter Continuous Start: 10/31/18 13:48 Freq: RTQ4 Status: Active Protocol: Document 11/03/18 00:00 [facility] (Rec: 11/03/18 02:20 [facility] [id number]) Pulse Oximetry Assessment Equipment Usage Equipment Standby Continuous SpO2 Machine # 11 Intake & Output 11/02/18 11/03/18 11/04/18 06:59 06:59 06:59 Intake Total 3437 2378 Output Total 2305 1150 Balance 1132 1228 Weight 113.5 kg 112.5 kg General appearance: PRESENT: no acute distress Head exam: PRESENT: atraumatic Eye exam: PRESENT: PERRLA Neck exam: ABSENT: carotid bruit, JVD, lymphadenopathy, thyromegaly Respiratory exam: PRESENT: decreased breath sounds Cardiovascular exam: PRESENT: irregular rhythm, systolic murmur, tachycardia GI/Abdominal exam: PRESENT: normal bowel sounds, soft, tenderness, other - Abdomen was slightly distended especially on the right side and on gentle palpation in the right upper quadrant complaining of increased pain. There is a slight voluntary guarding and rigidity.. ABSENT: distended, guarding, mass, organolmegaly, rebound Extremities exam: PRESENT: full ROM. ABSENT: calf tenderness, clubbing, pedal edema Neurological exam: PRESENT: alert, awake, oriented to person, oriented to place, oriented to time, oriented to situation, CN II-XII grossly intact. ABSENT: motor sensory deficit Psychiatric exam: PRESENT: appropriate affect, normal mood. ABSENT: homicidal ideation, suicidal ideation Results Laboratory Results: 11/03/18 04:35 11/03/18 04:35 11/02/18 11/03/18 11/03/18 20:30 04:35 04:35 WBC 12.4 H RBC 4.44 Hgb 13.3 L Hct 40.1 MCV 90 MCH 29.8 MCHC 33.1 RDW 13.6 Plt Count 312 Seg Neutrophils % 76.6 Lymphocytes % 11.7 L Monocytes % 10.1 Eosinophils % 0.8 Basophils % 0.8 Absolute Neutrophils 9.5 H Absolute Lymphocytes 1.4 Absolute Monocytes 1.2 Absolute Eosinophils 0.1 Absolute Basophils 0.1 Sodium 140.2 Potassium 5.0 D Chloride 98 Carbon Dioxide 38 H Anion Gap 4 L BUN 15 Creatinine 0.80 Est GFR ( Amer) > 60 Est GFR (Non-Af Amer) > 60 Glucose 202 H Calcium 10.3 H Magnesium 1.9 Total Bilirubin 0.4 AST 21 ALT 34 Alkaline Phosphatase 65 Total Protein 5.8 L Albumin 3.0 L Stool Occult Blood NEGATIVE 10/26/18 10/27/18 10/27/18 19:52 01:49 08:21 Creatine Kinase CK-MB (CK-2) 0.64 0.74 Troponin I < 0.012 < 0.012 < 0.012 NT-Pro-B Natriuret Pep 10/27/18 10/27/18 10/28/18 08:21 15:00 05:28 Creatine Kinase < 20 L CK-MB (CK-2) 0.38 Troponin I < 0.012 NT-Pro-B Natriuret Pep 237 10/29/18 10/29/18 10/29/18 12:23 12:23 18:19 Creatine Kinase < 20 L < 20 L CK-MB (CK-2) 0.31 Troponin I < 0.012 NT-Pro-B Natriuret Pep 10/29/18 10/30/18 10/30/18 18:19 00:24 00:24 Creatine Kinase < 20 L CK-MB (CK-2) 0.33 0.26 Troponin I < 0.012 < 0.012 NT-Pro-B Natriuret Pep Impressions: Abdomen/Pelvis CT 10/26/18 00:00 IMPRESSION: No acute disease. Chest X-Ray 10/26/18 20:17 IMPRESSION: Cardiomegaly. No acute cardiopulmonary process copyright 2010 [employer]- All Rights Reserved Abdomen Ultrasound 10/29/18 00:00 IMPRESSION: Cholelithiasis and cholecystitis. Dilated common bile duct, suspect choledocholithiasis. Hepatobiliary Scan [facility] 11/02/18 00:00 IMPRESSION: No evidence of bile leak No evidence of common bile duct obstruction Assessment & Plan - Diagnosis (1) Atrial fibrillation Is this a current diagnosis for this admission?: Yes Plan: 10/27/2018 patient was admitted with new onset atrial fibrillation with RVR. Initially on Cardizem drip, presently is on Coreg 6.5 mg p.o. twice daily. He is in sinus rhythm. Cardiology consult was requested echocardiogram requested. Patient is asymptomatic. Patient states he is going to follow-up with Dr. Calderon as an outpatient. He reluctantly agreed to see the mine captain today. Patient is presently on Lovenox therapeutic dose. FAll precautions are requested.. 10/28/2018-patient was admitted with atrial fibrillation with RVR is present heart rate is 109. He is on Coreg 6.25 mg p.o. twice daily. He is on Plavix aspirin and Lovenox. He is refusing see the mine captain team here in this hospital. He agreed to be on anticoagulation Eliquis. Put him on 2.5 mg of Eliquis twice daily and Cardizem 60 mg p.o. twice daily for rate control. Echocardiogram shows no valvular abnormalities. Requested the risk management involved in the case. Hopefully we may discharge him tomorrow. 10/29/2018-patient was admitted with new onset atrial fibrillation with RVR. Heart rate today is 97. He is on Cardizem 60 mg p.o. twice a day and also was started on Eliquis 2.5 mg p.o[address] twice daily. Dr. Farias went to talk to him to try to help him but pt refused to cooperate with Dr. Farias. Patient is insisting that Dr. Calderon is his mine captain and he does not want to see anybody else. Plan is to continue the present management. 10/30/[id number]-ekck-old male admitted with new onset atrial fibrillation with RVR. He was started on Eliquis and Cardizem p.o. His heart rate is 78. He does not want any cardiology input from here. He wants to see Dr. Calderon as an outpatient. In the meantime he found to have possible cholecystitis and as per the surgical recommendations Eliquis was on hold and started on heparin bridge for possible surgery tomorrow. Patient is n.p.o. today for MRCP. 10/31/2018 77-year-old male admitted for A. fib with RVR. Is on heparin drip. Refused cardiology evaluation initially during the hospital stay. Found to have gallbladder disease and going for a surgery today. Plan is to discharge him once he is stable and advised him to follow-up with Dr. Calderon as an outpatient. 11/01/2018-patient was admitted with A. fib with RVR. He is on heparin drip now. He still in atrial fib but rate controlled. Once the drain is removed he may go back on Eliquis. He is going for HIDA scan today. Patient is on diltiazem 6 0 mg p.o. every 12 hours and Coreg 6.5 mg p.o. twice a day. Heart rate just a while ago is 90. Plan is to continue the present management. 11/02/2018-patient was admitted with new onset A. fib with RVR. Started on Eliquis. Later on switched to heparin drip because of the possibility of surgery and he did went to undergo gallbladder removal 2 days ago. Drain was removed yesterday. HIDA scan was done today because of the concerns about a dilated bile duct Dr. Riddle called me and told me there is no biliary leakage basically they had a scan was negative. Talk to Dr. Turner he recommended the patient can be discharged today. Plan is today to stop his IV fluids hold his heparin drip restart his Eliquis continue antibiotics and probably discharge home tomorrow. Because the plan with the patient he agreed. 11/03/2018-patient is admitted with new onset A. fib with RVR. He was started on Eliquis and switch to heparin drip because he went for a gallbladder surgery. HIDA scan came back negative yesterday. Drain was taken out heparin was drip was discontinued and Eliquis was restarted. Day before his heart rate went down to 30s and Coreg and Cardizem were discontinued plan is to restart Coreg 6.5 mg p.o. twice daily today and closely monitor the heart rhythm. pt denies any chest pains. (2) Abdominal pain Is this a current diagnosis for this admission?: Yes Plan: Likely an anginal equivalent given onset with A. fib with RVR. Follow-up cardiac enzymes consider cardiac stress test. 10/27/2018-patient came in with abdominal pain CT abdomen pelvis was negative abdominal pain was resolved is most likely secondary to atrial fibrillation RVR causing the anginal symptoms. 10/28/2018 patient was admitted with abdominal pain CT abdominal pelvis was negative for acute pathology. Abdominal pain probably secondary to atrial fibrillation. On examination of the abdomen there is no bruit, patient is not c omplaining of any postprandial abdominal pain. 10/29/2018-patient came in with abdominal pain CT abdomen/pelvis negative for acute pathology he still complaining of right-sided upper abdominal pain ,going to do the urine gallbladder ultrasound. Patient is happy with recommendation and is willing to stay another day if necessary. She denies any problems associated with feeding like a postprandial pain. 10/30/[id number]-qznk-old male came with abdominal pain initial CT abdominal pelvis was negative for acute pathology yesterday is complaining of right upper quadrant pain ultrasound of gallbladder was done found to have a dilated bile duct and gallstones and cholecystitis. Patient is going for MRCP today. As per the surgical recommendations he is on IV heparin. Eliquis on hold since yesterday. Patient may go for surgery tomorrow. 10/31/2018-ultrasound of the gallbladder shows dilated bile duct along with gallstones and cholecystitis. Patient is on heparin drip for surgery. Plan is to hold heparin drip 6 hours prior to the surgery and patient is on the way to the OR today. 11/01/2018-patient came in with abdominal pain initial CAT scan was negative for acute pathology indicates cholelithiasis status post gallbladder surgery was done. Follow-up LFTs and lipase were negative. As per Dr. Turner's recommendation we going to do the HIDA scan this evening. Patient has a surgical drain, draining 30 cc of bloodstained fluid per shift. Not passing gas yet. bowel sounds are present 11/02/2018-patient came in with abdominal pain right-sided ultrasound shows gallbladder disease with cholecystitis status post cholecystectomy. Diet was removed yesterday. HIDA scan was negative. Patient able to tolerate the feeds. He is passing gas since yesterday. He does not have any bowel movement for the last couple of days be going to give Veltassa 8.4 g and lactulose. We do not have any Kayexalate it is in the back order. 11/03/2018-patient is complaining of abdominal pain, cholecystectomy was done on 11/01/2018-HIDA which was done yesterday negative. Plan is to arrange for a CT a bdomen without contrast today. (3) Chest pain Is this a current diagnosis for this admission?: Yes Plan: 10/27/2018 patient came in with chest pain probably secondary to. Cardiac enzymes are negative. no Complaints of chest pain this morning. 10/28/2018-patient came in with complaints of chest pain probably secondary to A. fib with RVR. Cardiac enzymes are negative. Echocardiogram was normal. No complaints of chest pains this morning. 10/29/2018-patient came in with chest pain most likely secondary to A. fib with rapid ventricular rate. Cardiac enzymes are negative. Echocardiogram was normal. No complaints of chest pains today. 10/30/2018-patient was admitted with chest pain chest pain most likely secondary to atrial fibrillation RVR. Heart rate is controlled patient is not complaining of chest pains anymore. Cardiac enzymes are negative. 10/31/2018 patient came into chest pains cardiac enzymes or EKGs are negative except for A. fib. Chest pain most likely secondary to atrial fibrillation. pt is chest pain-free today. 11/01/2018 patient initially came in with chest pains cardiac enzymes are negative EKG shows atrial fibrillation RVR chest pain most likely secondary to atrial fibrillation. 11/02/2018 chest pain was resolved this pain most likely secondary to ischemic in nature due to atrial fibrillation. 11/02/2018 patient came in with chest pain he initially lived most likely secondary to atrial fibrillation. Chest pain was resolved. (4) Obstructive sleep apnea Is this a current diagnosis for this admission?: No Plan: 10/27/2018 patient history of obstructive sleep apnea is noncompliant with his BiPAP machine at home. BiPAP was requested during this hospital stay. 10/28/2018-patient has history of obstructive sleep apnea is noncompliant with BiPAP at home. Order for the BiPAP was placed here in this hospital. 10/29/2018-patient has history of obstructive sleep apnea uses BiPAP at home. He is noncompliant with BiPAP at home. Order was placed for BiPAP here in the hospital. 10/30/2018-patient has history of obstructive sleep apnea he is randomly using BiPAP at home. Order for BiPAP was placed here. 10/31/2018-patient has obstructive sleep apnea supposed to be on BiPAP at home. He is noncompliant with the BiPAP. Presently he is using BiPAP at night during this hospital stay. 11/01/2018 patient has history of obstructive sleep apnea on BiPAP at home. BiPAP orders were placed during this hospital stay. 11/02/2018 patient has history of obstructive sleep apnea on BiPAP at home. BiPAP orders were placed here in the hospital. 11/03/2018-patient has obstructive sleep apnea on BiPAP at home presently is on BiPAP at night. (5) COPD (chronic obstructive pulmonary disease) Is this a current diagnosis for this admission?: No Plan: 10/27/2018-patient is given the history of COPD not on home oxygen he is presently on Xopenex, Atrovent, Flonase and supplemental oxygen. Pulse ox is 93% on 2 L. Chest examination bilateral entry was decreased but no wheezing no crepitations. 10/28/2018 patient has history of COPD not on home oxygen. He is on oxygen 2 L via nasal cannula here pulse ox is 96% on 2 L is on Xopenex, Atrovent, Flonase. 10/29/2018-patient has history of COPD not on home oxygen. His pulse ox is 98% on 2 L in the hospital. We are going to discontinue oxygen to see how is doing today. Plan is to discontinue flutter valve therapy and nebulizer treatments. On examination chest bilateral entry was good. 10/30/2018-patient has history of COPD not on home oxygen pulse ox on 2 L is 96% today patient is asymptomatic. Plan is to continue the present management. 10/31/2018-patient has history of COPD, not on home oxygen pulse ox on 2 L today is 96%. 11/01/2018-patient has history of COPD not on home oxygen his pulse ox today is 93% on room air. Plan is to continue the present management. 11/02/2018-patient has history of COPD not on home oxygen his pulse ox today on 2 L is 94%. Plan is to continue the present management. 11/03/2018-patient has history of COPD not on home oxygen pulse ox is 91% on 2 L. We are going to check for home oxygen requirements. (6) Obesity (BMI 30-39.9) Is this a current diagnosis for this admission?: Yes Plan: 10/27/2018-patient's BMI is more than 35. Diet exercise weight loss and lifestyle modifications discussed. Dietary consult was requested. 10/28/2018-plan is to continue the present management. 08/28/2019-patient's BMI is close to 40 again diet exercise weight loss was advised. 10/30/2018-patient's BMI is more than 40. Dietary consult was requested. 11/01/2018-dietary consult was done this during the admission for obesity. And again dietary recommendations are made. 11/02/2018-patient has history of obesity BMI is more than 40 diet exercise weight loss was again advised. 11/03/2018-patient history of morbid obesity BMI more than 40 diet exercise weight loss and lifestyle modifications are discussed dietary consult was done during the hospital stay. (7) Diabetes 1.5, managed as type 2 Is this a current diagnosis for this admission?: Yes Plan: 10/27/2018 patient is giving history of type 2 diabetes mellitus. Hemoglobin A1c is requested. pt going to be on insulin sliding scale before meals at bedtime with Humalog coverage. Dietary consult was requested is on diabetic diet. 10/28/2018 patient has history of type 2 diabetes mellitus latest blood sugar is 182. Hemoglobin A1c is 10.8. Patient is presently on insulin sliding scale before meals and at bedtime. And is on metformin thousand milligrams p.o. twice daily at home which was on hold. Plan is to start him on Lantus 10 units twice a day. 10/29/2018-patient has history of type 2 diabetes mellitus his hemoglobin A1c is 10.8. He is on metformin at home which was on hold here. Latest blood sugar is 245. Plan is to increase the Lantus to 15 units twice a day. Also on insulin sliding scale before meals and at bedtime. 10/30/2018-patient has history of diabetes mellitus type 2 hemoglobin A1c is 10.8 latest blood sugar is 272. Patient is presently on Lantus 15 units twice a day and also insulin sliding scale coverage before meals and at bedtime. 10/31/2018 patient's hemoglobin A1c is 10.8 today is 118. He is on Lantus 15 units twice a day and insulin sliding scale coverage before meals and at bedtime. Plan is to continue the present management. 11/01/2018-patient's blood sugar is 238. He is on Lantus 15 units twice a day and insulin sliding scale as needed. He is going to be n.p.o. for this morning be going to continue the present management. 11/02/2018-patient latest blood sugar is 121 hemoglobin A1c is 10.8. Presently he is on Lantus 15 units twice a day and insulin sliding scale. Plan is to continue the present management. 11/03/2018 patient blood sugar is 147 today plan is to continue the present management. (8) Coronary artery disease Is this a current diagnosis for this admission?: Yes (9) Cholecystitis Is this a current diagnosis for this admission?: Yes Plan: 10/30/2018 gallbladder ultrasound shows gallstones with cholecystitis. Patient is going for MRCP today. He is on a heparin drip as a bridge for possible cholecystectomy tomorrow. Patient is complaining of abdominal pain just a while ago I started him on morphine 1 mg IV every 4 as needed for pain. Also Percocets every 6 as needed. 10/31/2018 ultrasound gallbladder shows gallstones along with cholecystitis and dilated bile duct. Patient is in the OR for cholecystectomy. Yesterday surgical team planned for MRCP but he has few metal objects in the abdomen secondary to previous surgery involving the colon resection. So MRCP was canceled. 11/01/2018-patient has gallbladder surgery done yesterday is going to be n.p.o. is going for HIDA scan today drain is present and 30 cc of bloodstained fluid is coming per shift. Plan will continue the present management as per surgical team. s/p cholecystectomy on 10/31/2018 11/02/2018-ultrasound gallbladder shows gallstones with cholecystitis status post cholecystectomy. 11/03/2018-ultrasound gallbladder shows cholecystitis status post cholecystectomy on 11/01/[id number] HIDA scan was negative there is no biliary leak was noticed and no biliary obstruction were noticed. LFTs and lipase are normal. - Time Time Spent with patient: 15-24 minutes Medications reviewed and adjusted accordingly: Yes Anticipated discharge: Home
--- NOTE | 2018-11-03 11:25 | RADIOLOGY REPORT (SQ) ---
EXAM DESCRIPTION: CT ABD/PELVIS NO ORAL OR IV COMPLETED DATE/TIME: 11/03/2018 10:50 am REASON FOR STUDY: abd pain COMPARISON: 10/26/2018 TECHNIQUE: CT scan of the abdomen and pelvis performed without intravenous or oral contrast. Images reviewed with lung, soft tissue, and bone windows. Reconstructed coronal and sagittal MPR images revi ewed. All images stored on PACS. All CT scanners at this facility use dose modulation, iterative reconstruction, and/or weight based d osing when appropriate to reduce radiation dose to as low as reasonably achievable (ALARA). [facility]: Dose Right [facility]: CareDose [facility]: Dose Right [facility]: Teradose 4D [facility]: Oxynade RADIATION DOSE: CT Rad equipment meets quality standard of care and radiation dose reduction techniq ues were employed. CTDIvol: 21.1 mGy. DLP: 1138 mGy-cm.mGy. LIMITATIONS: None. FINDINGS: Since the very recent scan, there has been interval development of mesenteric stranding at the hepatic flexure. Multiple diverticula scattered throughout the colon. No free air or ascites. No obstruction. Trace bilateral pleural effusions. The appearance is otherwise unchanged. IMPRESSION: Diverticulitis hepatic flexure. COMMENT: Quality ID # [id number]: Final reports with documentation of one or more dose reduction techniques (e.g., Automated exposure control, adjustment of the mA and/or kV according to patient size, use of iterative reconstruction technique) TECHNICAL DOCUMENTATION: JOB ID: [id number] [employer]- All Rights Reserved Reading location - IP/workstation name: [email or web address]
[2018-11-03] MEDS: CARVEDILOL 6.25 MG TABLET PO SCH ×2 (12:54→22:26)
[2018-11-03] MEDS: OXYCODONE-ACETAMINOPHEN 5-325 MG TABLET PO PRN (13:14)
--- NOTE | 2018-11-03 14:50 | Progress Note ---
Provider Note Provider Note: Called to evaluate the pt re: diverticulitis. The pt DOES NOT have diverticulitis. He has inflammatory stranding in the vacinity of his recent gallbladder surgery. He also has what appears to be a hematoma and/or Surgicel within the gallbladder fossa. The pt has abdominal wall and chest wall tenderness, consistent with recent surgery. When his recent operative history is considered, his CT scan is normal. He also appears constipated. I would increase his stool softeners. I also encouraged ambulation. Will see again as-needed. Followup with [facility] in 1 week.
[2018-11-03] MEDS: PATIROMER 8.4 GM SUSP PACKET PO SCH (18:41)
[2018-11-03] MEDS: METRONIDAZOLE 500 MG/NS RTU 500 MG/100 ML RTUPB IV SCH (21:59)
[2018-11-03] MEDS: ATORVASTATIN CALCIUM 80 MG TABLET PO SCH (22:26)
[2018-11-04] MEDS: LEVALBUTEROL HCL NEB 1.25 MG/3 ML AMPUL NEB SCH ×2 (02:23→09:08)
[2018-11-04] MEDS: IPRATROPIUM BROMIDE 0.02% NEB 0.5 MG/2.5 ML AMPUL NEB SCH ×2 (02:23→09:08)
[2018-11-04] MEDS: METRONIDAZOLE 500 MG/NS RTU 500 MG/100 ML RTUPB IV SCH ×2 (02:23→09:31)
[2018-11-04] MEDS: OXYCODONE-ACETAMINOPHEN 5-325 MG TABLET PO PRN (02:31)
[2018-11-04] MEDS: LANSOPRAZOLE 30 MG TAB.RAP.DR PO SCH (06:33)
[2018-11-04] MEDS: INSULIN REG, HUMAN 100 UNIT/ML 3 ML VIAL (PYX) SUBCUT SCH ×2 (08:00→12:17)
[2018-11-04 08:28] LABS: HEMATOCRIT 39.4 % (37.9-51.0); HEMOGLOBIN 13.4 g/dL (13.5-17.0); MEAN CORPUSCULAR HEMOGLOBIN 30.4 pg (27.0-33.4); MEAN CORPUSCULAR HGB CONC 34.2 g/dL (32.0-36.0); MEAN CORPUSCULAR VOLUME 89 fl (80-97); PLATELET COUNT 372 10^3/uL (150-450); RED BLOOD COUNT 4.42 10^6/uL (4.35-5.55); RED CELL DISTRIBUTION WIDTH 13.8 % (11.5-14.0); WHITE BLOOD COUNT 9.7 10^3/uL (4.0-10.5)
[2018-11-04 08:47] LABS: ALANINE AMINOTRANSFERASE 33 U/L (21-72); ALBUMIN 2.9 g/dL (3.5-5.0); ALKALINE PHOSPHATASE 67 U/L (38-126); ANION GAP 6 (5-19); ASPARTATE AMINO TRANSFERASE 18 U/L (17-59); BILIRUBIN,DIRECT 0.3 mg/dL (0.0-0.4); BILIRUBIN,TOTAL 0.6 mg/dL (0.2-1.3); BLOOD UREA NITROGEN 12 mg/dL (7-20); CALCIUM 9.9 mg/dL (8.4-10.2); CARBON DIOXIDE 37 mmol/L (22-30); CHLORIDE 96 mmol/L (98-107); GLUCOSE 146 mg/dL (75-110); SODIUM 138.5 mmol/L (137-145); TOTAL PROTEIN 5.7 g/dL (6.3-8.2)
[2018-11-04] MEDS: RANOLAZINE 500 MG TAB.SR.12H PO SCH (09:31)
[2018-11-04] MEDS: FLUTICASONE NASAL SPRAY 50 MCG/SPRY 120 SPRAY/16 GM NASL SCH (09:32)
[2018-11-04] MEDS: DOCUSATE SODIUM 100 MG CAPSULE PO SCH (09:32)
[2018-11-04] MEDS: CARVEDILOL 6.25 MG TABLET PO SCH (09:32)
[2018-11-04] MEDS: APIXABAN 2.5 MG TABLET PO SCH (09:32)
[2018-11-04] MEDS: INSULIN GLARGINE,HUM.REC.ANLOG 300 UNIT/3 ML INSULN.PEN SUBCUT SCH (09:33)
[2018-11-04] MEDS: EZETIMIBE 10 MG TABLET PO SCH (09:33)
[2018-11-04] MEDS ORDERED: POLYETHYLENE GLYCOL 3350 POWDER 17 GM/1 PACKET PO SCH (10:00)
[2018-11-04] MEDS: CEFEPIME 2 GM/D5W RTU 2 GM/50 ML RTUPB IV SCH (11:27)
--- NOTE | 2018-11-04 12:32 | PDOC DISCHARGE SUMMARY ---
General - Admit/Disc Date/PCP Admission Date/Primary Care Provider: 10/26/18 23:14 CHELA IYER MD Discharge Date: 11/04/18 - Discharge Diagnosis (1) Atrial fibrillation Is this a current diagnosis for this admission?: Yes Summary: 10/27/2018 patient was admitted with new onset atrial fibrillation with RVR. Initially on Cardizem drip, presently is on Coreg 6.5 mg p.o. twice daily. He is in sinus rhythm. Cardiology consult was requested echocardiogram requested. Patient is asymptomatic. Patient states he is going to follow-up with Dr. Calderon as an outpatient. He reluctantly agreed to see the control operator flow coat today. Patient is presently on Lovenox therapeutic dose. FAll precautions are requested.. 10/28/2018-patient was admitted with atrial fibrillation with RVR is present heart rate is 109. He is on Coreg 6.25 mg p.o. twice daily. He is on Plavix aspirin and Lovenox. He is refusing see the control operator flow coat team here in this hospital. He agreed to be on anticoagulation Eliquis. Put him on 2.5 mg of Eliquis twice daily and Cardizem 60 mg p.o. twice daily for rate control. Echocardiogram shows no valvular abnormalities. Requested the risk management involved in the case. Hopefully we may discharge him tomorrow. 10/29/2018-patient was admitted with new onset atrial fibrillation with RVR. Heart rate today is 97. He is on Cardizem 60 mg p.o. twice a day and also was started on Eliquis 2.5 [address] p.o[address] twice daily. Dr. Farias went to talk to him to try to help him but pt refused to cooperate with Dr. Farias. Patient is insisting that Dr. Calderon is his control operator flow coat and he does not want to see anybody else. Plan is to continue the present management. 10/30/[id number]-[id number]-old male admitted with new onset atrial fibrillation with RVR. He was started on Eliquis and Cardizem p.o. His heart rate is 78. He does not want any cardiology input from here. He wants to see Dr. Calderon as an outpatient. In the meantime he found to have possible cholecystitis and as per the surgical recommendations Eliquis was on hold and started on heparin bridge for possible surgery tomorrow. Patient is n.p.o. today for MRCP. 10/31/2018 77-year-old male admitted for A. fib with RVR. Is on heparin drip. Refused cardiology evaluation initially during the hospital stay. Found to have gallbladder disease and going for a surgery today. Plan is to discharge him once he is stable and advised him to follow-up with Dr. Calderon as an outpatient. 11/01/2018-patient was admitted with A. fib with RVR. He is on heparin drip now. He still in atrial fib but rate controlled. Once the drain is removed he may go back on Eliquis. He is going for HIDA scan today. Patient is on diltiazem 60 mg p.o. every 12 hours and Coreg 6.5 mg p.o. twice a day. Heart rate just a while ago is 90. Plan is to continue the present management. 11/02/2018-patient was admitted with new onset A. fib with RVR. Started on Eliquis. Later on switched to heparin drip because of the possibility of surgery and he did went to undergo gallbladder removal 2 days ago. Drain was removed yesterday. HIDA scan was done today because of the concerns about a dilated bile duct Dr. Riddle called me and told me there is no biliary leakage basically they had a scan was negative. Talk to Dr. Turner he recommended the patient can be discharged today. Plan is today to stop his IV fluids hold his heparin drip restart his Eliquis continue antibiotics and probably discharge home tomorrow. Because the plan with the patient he agreed. 11/03/2018-patient is admitted with new onset A. fib with RVR. He was started on Eliquis and switch to heparin drip because he went for a gallbladder surgery. HIDA scan came back negative yesterday. Drain was taken out heparin was drip was discontinued and Eliquis was restarted. Day before his heart rate went down to 30s and Coreg and Cardizem were discontinued plan is to restart Coreg 6.5 mg p.o. twice daily today and closely monitor the heart rhythm. pt denies any chest pains. 11/04/2018 77-year-old male admitted with atrial fibrillation with RVR. I nitially refused cardiology consult. And he wants to follow-up with Dr. Calderon as an outpatient. After talking to him in length he agreed to be on Eliquis, was started on Cardizem. Because of the abdominal pain and ultrasound shows cholecystitis Eliquis was on hold and started on heparin drip. He had a successful gallbladder removal and had a scan was negative, drain was removed. He was placed back on Eliquis 11/02/2018. He is going home on Eliquis today. Cardizem was discontinued because heart rate went down to 30s yesterday. But he is advised to continue his Coreg twice a day. He was also strongly advised to follow-up with Dr. Calderon in 3-5 days as an outpatient. (2) Abdominal pain Is this a current diagnosis for this admission?: Yes Summary: 10/27/2018-patient came in with abdominal pain CT abdomen pelvis was negative abdominal pain was resolved is most likely secondary to atrial fibrillation RVR causing the anginal symptoms. 10/28/2018 patient was admitted with abdominal pain CT abdominal pelvis was negative for acute pathology. Abdominal pain probably secondary to atrial fibrillation. On examination of the abdomen there is no bruit, patient is not complaining of any postprandial abdominal pain. 10/29/2018-patient came in with abdominal pain CT abdomen/pelvis negative for acute pathology he still complaining of right-sided upper abdominal pain ,going to do the urine gallbladder ultrasound. Patient is happy with recommendation and is willing to stay another day if necessary. She denies any problems associated with feeding like a postprandial pain. 10/30/[id number]-old male came with abdominal pain initial CT abdominal pelvis was negative for acute pathology yesterday is complaining of right upper quadrant pain ultrasound of gallbladder was done found to have a dilated bile duct and gallstones and cholecystitis. Patient is going for MRCP today. As per the surgical recommendations he is on IV heparin. Eliquis on hold since yesterday. Patient may go for surgery tomorrow. 10/31/2018-ultrasound of the gallbladder shows dilated bile duct along with gallstones and cholecystitis. Patient is on heparin drip for surgery. Plan is to hold heparin drip 6 hours prior to the surgery and patient is on the way to the OR today. 11/01/2018-patient came in with abdominal pain initial CAT scan was negative for acute pathology indicates cholelithiasis status post gallbladder surgery was done. Follow-up LFTs and lipase were negative. As per Dr. Turner's recommendation we going to do the HIDA scan this evening. Patient has a surgical drain, draining 30 cc of bloodstained fluid per shift. Not passing gas yet. bowel sounds are present 11/02/2018-patient came in with abdominal pain right-sided ultrasound shows gallbladder disease with cholecystitis status post cholecystectomy. Diet was removed yesterday. HIDA scan was negative. Patient able to tolerate the feeds. He is passing gas since yesterday. He does not have any bowel movement for the last couple of days be going to give Veltassa 8.4 g and lactulose. We do not have any Kayexalate it is in the back order. 11/03/2018-patient is complaining of abdominal pain, cholecystectomy was done on 11/01/2018-HIDA which was done yesterday negative. Plan is to arrange for a CT abdomen without contrast today. 11/04/2018-patient was admitted with abdominal pain initial CT abdomen and pelvis negative for acute pathology. But he is continued to complaining of right upper quadrant pain ultrasound of the gallbladder shows cholelithiasis status post cholecystectomy. HIDA scans were done because of the dilated common bile duct found to have a no biliary leakage. No billiary obstruction was seen in the HIDA scan. Bilirubin, LFTs, lipase are normal during the hospital course. (3) Chest pain Is this a current diagnosis for this admission?: Yes Summary: 10/27/2018 patient came in with chest pain probably secondary to. Cardiac enzymes are negative. no Complaints of chest pain this morning. 10/28/2018-patient came in with complaints of chest pain probably secondary to A. fib with RVR. Cardiac enzymes are negative. Echocardiogram was normal. No complaints of chest pains this morning. 10/29/2018-patient came in with chest pain most likely secondary to A. fib with rapid ventricular rate. Cardiac enzymes are negative. Echocardiogram was normal. No complaints of chest pains today. 10/30/2018-patient was admitted with chest pain chest pain most likely secondary to atrial fibrillation RVR. Heart rate is controlled patient is not complaining of chest pains anymore. Cardiac enzymes are negative. 10/31/2018 patient came into chest pains cardiac enzymes or EKGs are negative except for A. fib. Chest pain most likely secondary to atrial fibrillation. pt is chest pain-free today. 11/01/2018 patient initially came in with chest pains cardiac enzymes are negative EKG shows atrial fibrillation RVR chest pain most likely secondary to atrial fibrillation. 11/02/2018 chest pain was resolved this pain most likely secondary to ischemic in nature due to atrial fibrillation. 11/03/2018 patient came in with chest pain he initially lived most likely second uri to atrial fibrillation. Chest pain was resolved. 11/04/2018-patient came in with chest pain most likely secondary to new onset atrial fibrillation. He cardiac enzymes are negative EKGs are negative except for atrial fibrillation. Chest pain was resolved during the hospital stay. Patient was advised to follow-up with his primary control operator flow coat Dr. Calderon in 3-5 days. (4) Obstructive sleep apnea Is this a current diagnosis for this admission?: No Summary: 10/27/2018 patient history of obstructive sleep apnea is noncompliant with his BiPAP machine at home. BiPAP was requested during this hospital stay. 10/28/2018-patient has history of obstructive sleep apnea is noncompliant with BiPAP at home. Order for the BiPAP was placed here in this hospital. 10/29/2018-patient has history of obstructive sleep apnea uses BiPAP at home. He is noncompliant with BiPAP at home. Order was placed for BiPAP here in the hospital. 10/30/2018-patient has history of obstructive sleep apnea he is randomly using BiPAP at home. Order for BiPAP was placed here. 10/31/2018-patient has obstructive sleep apnea supposed to be on BiPAP at home. He is noncompliant with the BiPAP. Presently he is using BiPAP at night during this hospital stay. 11/01/2018 patient has history of obstructive sleep apnea on BiPAP at home. BiPAP orders were placed during this hospital stay. 11/02/2018 patient has history of obstructive sleep apnea on BiPAP at home. BiPAP orders were placed here in the hospital. 11/03/2018-patient has obstructive sleep apnea on BiPAP at home presently is on BiPAP at night. 11/04/2018-patient has history of obstructive sleep apnea, on BiPAP at home but is noncompliant with BiPAP. BiPAP orders are resumed during the hospital stay. Patient was advised to continue the BiPAP use at home. (5) COPD (chronic obstructive pulmonary disease) Is this a current diagnosis for this admission?: No Summary: 10/27/2018-patient is given the history of COPD not on home oxygen he is presently on Xopenex, Atrovent, Flonase and supplemental oxygen. Pulse ox is 93% on 2 L. Chest examination bilateral entry was decreased but no wheezing no crepitations. 10/28/2018 patient has history of COPD not on home oxygen. He is on oxygen 2 L via nasal cannula here pulse ox is 96% on 2 L is on Xopenex, Atrovent, Flonase. 10/29/2018-patient has history of COPD not on home oxygen. His pulse ox is 98% on 2 L in the hospital. We are going to discontinue oxygen to see how is doing today. Plan is to discontinue flutter valve therapy and nebulizer treatments. On examination chest bilateral entry was good. 10/30/2018-patient has history of COPD not on home oxygen pulse ox on 2 L is 96% today patient is asymptomatic. Plan is to continue the present management. 10/31/2018-patient has history of COPD, not on home oxygen pulse ox on 2 L today is 96%. 11/01/2018-patient has history of COPD not on home oxygen his pulse ox today is 93% on room air. Plan is to continue the present management. 11/02/2018-patient has history of COPD not on home oxygen his pulse ox today on 2 L is 94%. Plan is to continue the present management. 11/03/2018-patient has history of COPD not on home oxygen pulse ox is 91% on 2 L. We are going to check for home oxygen requirements. 11/04/2018-patient has history of COPD and is not on home oxygen. His pulse ox is 92-94% on room air here today. (6) Obesity (BMI 30-39.9) Is this a current diagnosis for this admission?: Yes Summary: 10/27/2018-patient's BMI is more than 35. Diet exercise weight loss and lifestyle modifications discussed. Dietary consult was requested. 10/28/2018-plan is to continue the present management. 08/28/2019-patient's BMI is close to 40 again diet exercise weight loss was advised. 10/30/2018-patient's BMI is more than 40. Dietary consult was requested. 11/01/2018-dietary consult was done this during the admission for obesity. And again dietary recommendations are made. 11/02/2018-patient has history of obesity BMI is more than 40 diet exercise weight loss was again advised. 11/03/2018-patient history of morbid obesity BMI more than 40 diet exercise weight loss and lifestyle modifications are discussed dietary consult was done during the hospital stay. 11/04/2018-patient's BMI is more than 40 during this hospital stay dietary c onsult was done and also dietary measures were recommended. (7) Diabetes 1.5, managed as type 2 Is this a current diagnosis for this admission?: Yes Summary: 10/27/2018 patient is giving history of type 2 diabetes mellitus. Hemoglobin A1c is requested. pt going to be on insulin sliding scale before meals at bedtime with Humalog coverage. Dietary consult was requested is on diabetic diet. 10/28/2018 patient has history of type 2 diabetes mellitus latest blood sugar is 182. Hemoglobin A1c is 10.8. Patient is presently on insulin sliding scale before meals and at bedtime. And is on metformin thousand milligrams p.o. twice daily at home which was on hold. Plan is to start him on Lantus 10 units twice a day. 10/29/2018-patient has history of type 2 diabetes mellitus his hemoglobin A1c is 10.8. He is on metformin at home which was on hold here. Latest blood sugar is 245. Plan is to increase the Lantus to 15 units twice a day. Also on insulin sliding scale before meals and at bedtime. 10/30/2018-patient has history of diabetes mellitus type 2 hemoglobin A1c is 10.8 latest blood sugar is 272. Patient is presently on Lantus 15 units twice a day and also insulin sliding scale coverage before meals and at bedtime. 10/31/2018 patient's hemoglobin A1c is 10.8 today is 118. He is on Lantus 15 units twice a day and insulin sliding scale coverage before meals and at bedtime. Plan is to continue the present management. 11/01/2018-patient's blood sugar is 238. He is on Lantus 15 units twice a day and insulin sliding scale as needed. He is going to be n.p.o. for this morning be going to continue the present management. 11/02/2018-patient latest blood sugar is 121 hemoglobin A1c is 10.8. Presently he is on Lantus 15 units twice a day and insulin sliding scale. Plan is to continue the present management. 11/03/2018 patient blood sugar is 147 today plan is to continue the present management. 11/04/2018-patient has history of type 2 diabetes mellitus his hemoglobin A1c came back as 10.8. Using metformin at home and he was advised to continue metformin once he is discharged and the patient was strongly advised to follow- up with primary care physician in 1 week for further management. (8) Coronary artery disease Is this a current diagnosis for this admission?: Yes (9) Cholecystitis Is this a current diagnosis for this admission?: Yes Summary: 10/30/2018 gallbladder ultrasound shows gallstones with cholecystitis. Patient is going for MRCP today. He is on a heparin drip as a bridge for possible cholecystectomy tomorrow. Patient is complaining of abdominal pain just a while ago I started him on morphine 1 mg IV every 4 as needed for pain. Also Percocets every 6 as needed. 10/31/2018 ultrasound gallbladder shows gallstones along with cholecystitis and dilated bile duct. Patient is in the OR for cholecystectomy. Yesterday surgical team planned for MRCP but he has few metal objects in the abdomen secondary to previous surgery involving the colon resection. So MRCP was canceled. 11/01/2018-patient has gallbladder surgery done yesterday is going to be n.p.o. is going for HIDA scan today drain is present and 30 cc of bloodstained fluid is coming per shift. Plan will continue the present management as per surgical team. s/p cholecystectomy on 10/31/2018 11/02/2018-ultrasound gallbladder shows gallstones with cholecystitis status post cholecystectomy. 11/03/2018-ultrasound gallbladder shows cholecystitis status post cholecystectomy on 11/01/[id number] HIDA scan was negative there is no biliary leak was noticed and no biliary obstruction were noticed. LFTs and lipase are normal. 11/04/2018-patient has cholecystitis found on gallbladder ultrasound status post cholecystectomy on 11/01/2018. Follow-up HIDA scan was done because of the concern about dilated bile duct but no biliary leak H or biliary obstruction was seen. LFTs lipase and bilirubin's are normal. Drain was removed and next day of the surgery. Patient is going home on levofloxacin 500 mg p.o. daily for 1 week. - Additional Information Resuscitation Status: Full Code Discharge Diet: Diabetic Discharge Activity: Activity As Tolerated Prescriptions: Apixaban [Eliquis 2.5 mg Tablet] 2.5 mg PO BID #60 tablet Levofloxacin [Levaquin 500 mg Tablet] 500 mg PO DAILY #10 tablet Home Medications: Carvedilol [Coreg 6.25 mg Tablet] 6.25 mg PO BID 12/27/11 Docusate Sodium [Colace 100 mg Capsule] 200 mg PO QHS 12/27/11 Nitroglycerin [Nitrostat 0.4 mg (1/150 Gr) Tabs 25/Bottle] 0.4 mg SL PRN PRN 12/27/11 Simvastatin [Zocor 40 mg Tablet] 40 mg PO QHS 12/27/11 Metformin HCl [Glucophage] 1,000 mg PO BID 12/23/13 Potassium Chloride 10 meq PO DAILY 12/23/13 Albuterol Sulfate [Ventolin 0.083% Neb 2.5 mg/3 mL Ampul] 1 vial NEB BIDP PRN 10/27/18 Albuterol Sulfate [Ventolin Hfa 8 gm Mdi (1 Mdi/ER Disp)] 2 puff IH BIDP PRN 10/27/18 Dexlansoprazole [Dexilant 60 mg Capsule] 60 mg PO DAILY 10/27/18 Ezetimibe [Zetia 10 mg Tablet] 10 mg PO DAILY 10/27/18 Fluticasone Propionate [Flonase Nasal Finley 50 Mcg/Finley 16 gm] 1 spray NASL DAILYP PRN 10/27/18 Fluticasone/Umeclidin/Vilanter [Trelegy 100-62.5-25 Mcg Ellipta 14 Dose/Dpi] 2 puff IH DAILY 10/27/18 Ranolazine [Ranexa 500 mg Tab.sr] 500 mg PO Q12 10/27/18 Apixaban [Eliquis 2.5 mg Tablet] 2.5 mg PO BID #60 tablet 11/04/18 Carvedilol [Coreg 6.25 mg Tablet] 6.25 mg PO Q12 tablet 11/04/18 Levofloxacin [Levaquin 500 mg Tablet] 500 mg PO DAILY #10 tablet 11/04/18 Oxycodone HCl/Acetaminophen [Percocet 5-325 mg Tablet] 1 tab PO Q4HP PRN tablet 11/04/18 History of Present Illness History of Present Illness: BABAR L SUDHEER is a 77 year old male 77 year old male with a past medical history of oxygen dependent COPD, obstructive sleep apnea with noncompliance, coronary artery disease with stent remotely, diverticulitis with partial colectomy and diabetes. He presents with approximately a week of abdominal pain prompting him to seek evaluation in the emergency room where he was found to have A. fib with RVR. He started on IV Cardizem and full dose Lovenox then referred to the hospitalist for admission. Patient denies previous episode denies current abdominal pain. CT of the abdomen pelvis was unremarkable. Patient denies recent change in medications and otherwise is felt well. Physical Exam Vital Signs: Temp Pulse Resp BP Pulse Ox 97.6 F 90 20 139/71 H 92 11/04/18 03:14 11/04/18 07:00 11/04/18 03:14 11/04/18 03:14 11/04/18 03:14 Pulse Oximeter Continuous Start: 10/31/18 13:48 Freq: RTQ4 Status: Active Protocol: Document 11/04/18 03:46 [facility] (Rec: 11/04/18 03:46 [facility] [id number]) Pulse Oximetry Assessment Equipment Usage Equipment Standby Continuous SpO2 Machine # 11 Intake & Output 11/03/18 11/04/18 11/05/18 06:59 06:59 06:59 Intake Total 2378 1887 100 Output Total 1150 450 Balance 1228 1437 100 Weight 112.5 kg 110.7 kg General appearance: PRESENT: other - Obese male not in distress Head exam: PRESENT: atraumatic Eye exam: PRESENT: PERRLA Neck exam: ABSENT: carotid bruit, JVD, lymphadenopathy, thyromegaly Respiratory exam: PRESENT: decreased breath sounds Cardiovascular exam: PRESENT: other - Patient having the paroxysmal A. fib, in and out of the sinus rhythm. GI/Abdominal exam: PRESENT: normal bowel sounds, soft. ABSENT: distended, guarding, mass, organolmegaly, rebound, tenderness Extremities exam: PRESENT: full ROM. ABSENT: calf tenderness, clubbing, pedal edema Neurological exam: PRESENT: alert, awake, oriented to person, oriented to place, oriented to time, oriented to situation, CN II-XII grossly intact. ABSENT: motor sensory deficit Psychiatric exam: PRESENT: appropriate affect, normal mood. ABSENT: homicidal ideation, suicidal ideation Results Laboratory Results: 11/04/18 07:56 11/04/18 07:56 11/04/18 11/04/18 07:56 07:56 WBC 9.7 RBC 4.42 Hgb 13.4 L Hct 39.4 MCV 89 MCH 30.4 MCHC 34.2 RDW 13.8 Plt Count 372 Sodium 138.5 Potassium 4.0 Chloride 96 L Carbon Dioxide 37 H Anion Gap 6 BUN 12 Creatinine 0.76 Est GFR ( Amer) > 60 Est GFR (Non-Af Amer) > 60 Glucose 146 H Calcium 9.9 Magnesium 1.8 Total Bilirubin 0.6 AST 18 ALT 33 Alkaline Phosphatase 67 Total Protein 5.7 L Albumin 2.9 L 10/26/18 10/27/18 10/27/18 19:52 01:49 08:21 Creatine Kinase CK-MB (CK-2) 0.64 0.74 Troponin I < 0.012 < 0.012 < 0.012 NT-Pro-B Natriuret Pep 10/27/18 10/27/18 10/28/18 08:21 15:00 05:28 Creatine Kinase < 20 L CK-MB (CK-2) 0.38 Troponin I < 0.012 NT-Pro-B Natriuret Pep 237 10/29/18 10/29/18 10/29/18 12:23 12:23 18:19 Creatine Kinase < 20 L < 20 L CK-MB (CK-2) 0.31 Troponin I < 0.012 NT-Pro-B Natriuret Pep 10/29/18 10/30/18 10/30/18 18:19 00:24 00:24 Creatine Kinase < 20 L CK-MB (CK-2) 0.33 0.26 Troponin I < 0.012 < 0.012 NT-Pro-B Natriuret Pep Impressions: Chest X-Ray 10/26/18 20:17 IMPRESSION: Cardiomegaly. No acute cardiopulmonary process copyright 2011 [employer]- All Rights Reserved Abdomen Ultrasound 10/29/18 00:00 IMPRESSION: Cholelithiasis and cholecystitis. Dilated common bile duct, suspect choledocholithiasis. Hepatobiliary Scan Nuclear Medicine 11/02/18 00:00 IMPRESSION: No evidence of bile leak No evidence of common bile duct obstruction Abdomen/Pelvis CT 11/03/18 00:00 IMPRESSION: Diverticulitis hepatic flexure. Qualifiers - * PATIENT BEING DISCHARGED WITH ANY OF THE FOLLOWING DIAGNOSIS: No VTE patient discharged on overlapping Therapy?: No
[2018-11-04 13:23] VITALS: BP 145/86
== END 2018-11-04 13:17 | disposition home or self-care (01) | DRG 988 ==
LOC: ER 19:08 → EH 23:14 → 3W 10-27 01:39
PROVIDERS: ADMIT Internal Medicine; ATTEND Internal Medicine
PROC: 0FT44ZZ Resection of Gallbladder, Percutaneous Endoscopic Approach (ICD-10-PCS; principal; 2018-10-31 09:00)
DX: I48.91 Unspecified atrial fibrillation (principal); K80.00 Calculus of gallbladder with acute cholecystitis without obstruction; J44.9 Chronic obstructive pulmonary disease, unspecified; Z99.81 Dependence on supplemental oxygen; E11.9 Type 2 diabetes mellitus without complications; G47.33 Obstructive sleep apnea (adult) (pediatric); I25.10 Atherosclerotic heart disease of native coronary artery without angina pectoris; E78.5 Hyperlipidemia, unspecified; K21.9 Gastro-esophageal reflux disease without esophagitis; E66.9 Obesity, unspecified; I10 Essential (primary) hypertension; K59.00 Constipation, unspecified; Z91.19 Patient's noncompliance with other medical treatment and regimen; Z95.5 Presence of coronary angioplasty implant and graft; Z90.49 Acquired absence of other specified parts of digestive tract; I25.2 Old myocardial infarction; Z87.891 Personal history of nicotine dependence; Z83.6 Family history of other diseases of the respiratory system; Z79.02 Long term (current) use of antithrombotics/antiplatelets; Z79.84 Long term (current) use of oral hypoglycemic drugs; Z68.35 Body mass index [BMI] 35.0-35.9, adult
CPT/HCPCS: 36415; 71045; 74176; 74177; 76705; 78226; 790; 80048; 80053; 80061; 80076; 81001; 82150; 82272; 82550; 82553; 82803; 82962; 83036; 83605; 83690; 83735; 83880; 84484; 85025; 85027; 85610; 85730; 86850; 86900; 86901; 88304; 93005; 93010; 93306; 94640; 94660; 94667; 94762; 94799; 96361; 96374; 96375; 96376; 99291; A9537; J0131; J0330; J0692; J1100; J1644; J1650; J1815; J2250; J2270; J2405; J2704; J2765; J3010; J3490; J7030; J7120; J7620; Q9967; Q9969

== ENCOUNTER → 2020-07-07 | Outpatient (CLI) | payer MEDICARE, OTHER ==
--- NOTE | 2020-07-07 16:19 | RADIOLOGY REPORT (SQ) ---
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 TECHNIQUE: Under fluoroscopic guidance, patient ingested effervescent granules followed by thick and thin barium. Fluoroscopic spot images and routine radiographic images acquired and stored on PACS. 12 MM BARIUM TABLET GIVEN: Barium tablet passed through the esophagus into the stomach without delay. LIMITATIONS: None. FLUOROSCOPY TIME: FLUORO TIME: 1.9 minutes 7 images saved to PACS. FINDINGS: NEUROMUSCULAR COORDINATION OF SWALLOW: Normal. No aspiration. ESOPHAGEAL MOTILITY: Normal peristalsis. Moderate tertiary contractions seen. ESOPHAGEAL MUCOSA: Normal mucosa without masses or ulceration. GASTRO-ESOPHAGEAL JUNCTION: Tiny hiatal hernia. Marked gastroesophageal reflux demonstrated. NON-GI TRACT STRUCTURES: No significant finding. OTHER: No other significant finding. IMPRESSION: MODERATE TERTIARY CONTRACTIONS WITH MARKED GASTROESOPHAGEAL REFLUX AND TINY HIATAL HERNI A. RECOMMENDATION: NONE COMMENT: None Quality ID [id number]: Final reports for procedures using fluoroscopy that document radiation exposure yeni jyoti, or exposure time and number of fluorographic images (if radiation exposure indices are not avail able) TECHNICAL DOCUMENTATION: JOB ID: [id number] 2010 [employer]- All Rights Reserved Reading location - IP/workstation name: [email or web address]
== END ==
LOC: RAD 08:17
PROVIDERS: ATTEND Internal Medicine
DX: D21.0 Benign neoplasm of connective and other soft tissue of head, face and neck (principal); K21.9 Gastro-esophageal reflux disease without esophagitis; K44.9 Diaphragmatic hernia without obstruction or gangrene
CPT/HCPCS: 74220